=== PATIENT | male | born 1955 | race Caucasian/White ===

== ENCOUNTER 2017-11-22 09:59 | Inpatient (IN) | payer OTHER ==
[2017-11-22] MEDS ORDERED: NITROGLYCERIN-D5W PMX 50 MG in DEXTROSE/WATER 1 250ML.BAG IV ONE (10:02)
--- NOTE | 2017-11-22 10:08 | ED ---
General Adult HPI - General Stated complaint: chest pain Time Seen by Provider: 11/22/17 09:59 Source: RN notes reviewed - History of Present Illness Initial comments: This is a 62-year-old male who presents emergency Department with bypass surgery 5 stents in the past. Patient also has a history of diabetes high cholesterol high blood pressure. Patient comes in today because he started having chest pain when he was going to see his doctor today. He was going to his doctor's for a regular checkup when he started having severe chest pressure which radiated to his left shoulder he also was nauseated. Patient denies any shortness of breath or difficulty breathing. Patient states that he had 3 nitroglycerin by EMS and the third one seemed to help but he still is having chest pain currently. Patient also got 4 aspirin one which she took himself and 3 by EMS. Patient denies any lightheadedness or dizziness. Patient denies any headache patient denies numbness or weakness. Patient denies any vomiting or diarrhea. Patient denies any recent fever chills or cough. - Related Data Home Medications Medication Instructions Recorded Confirmed Aspirin EC [Ecotrin Low Dose] 81 mg PO DAILY 11/22/17 11/22/17 Butalb/Acetaminophen/Caffeine 1 cap PO Q6H PRN 11/22/17 11/22/17 [Fioricet 50-300-40 mg Capsule] Colchicine [Colcrys] 0.6 mg PO Q12H PRN 11/22/17 11/22/17 Colchicine [Colcrys] 1.2 mg PO ONCE PRN 11/22/17 11/22/17 Cyclobenzaprine [Flexeril] 10 mg PO Q6H PRN 11/22/17 11/22/17 DULoxetine HCL [Cymbalta] 30 mg PO DAILY 11/22/17 11/22/17 Dicyclomine HCl 10 mg PO TID 11/22/17 11/22/17 Esomeprazole Magnesium [NexIUM] 40 mg PO DAILY 11/22/17 11/22/17 Evolocumab [Repatha Sureclick] 140 mg SQ Q14D 11/22/17 11/22/17 Gabapentin 600 mg PO DAILY 11/22/17 11/22/17 Hydrocodone/Acetaminophen [[place] 1 tab PO Q6H PRN 09/17/18 09/17/18 10-325] Lisinopril [Zestril] 5 mg PO DAILY 11/22/17 11/22/17 Metoprolol Tartrate [Lopressor] 50 mg PO BID 11/22/17 11/22/17 Nitroglycerin Sl Tabs [Nitrostat] 0.4 mg SUBLINGUAL Q5M PRN 11/22/17 11/22/17 Pantoprazole Sodium 40 mg PO DAILY 11/22/17 11/22/17 Prasugrel [Effient] 10 mg PO DAILY 11/22/17 11/22/17 Promethazine [Phenergan] 12.5 mg PO TID PRN 11/22/17 11/22/17 Ranolazine [Ranexa] 1,000 mg PO HS 11/22/17 11/22/17 Topiramate [Topamax] 25 mg PO BID 11/22/17 11/22/17 Topiramate [Topamax] 50 mg PO BID 11/22/17 11/22/17 buPROPion HCL [Wellbutrin XL] 150 mg PO DAILY 11/22/17 11/22/17 metFORMIN HCL ER [Glucophage Xr] 500 mg PO BID 11/22/17 11/22/17 predniSONE 20 mg PO BID 11/22/17 11/22/17 traMADol HCL [Ultram] 50 mg PO Q4-6H PRN 11/22/17 11/22/17 Allergies Allergy/AdvReac Type Severity Reaction Status Date / Time glipizide Allergy Unknown Verified 11/22/17 11:19 Sulfa (Sulfonamide Allergy Unknown Verified 11/22/17 11:19 Antibiotics) Review of Systems ROS Statement: Those systems with pertinent positive or pertinent negative responses have been documented in the HPI. ROS Other: All systems not noted in ROS Statement are negative. General Exam - General Exam Comments Initial Comments: GENERAL: Patient is well-developed and well-nourished. Patient is nontoxic and well- hydrated and is in mild distress. ENT: Neck is soft and supple. No significant lymphadenopathy is noted. Oropharynx is clear. Moist mucous membranes. Neck has full range of motion without eliciting any pain. EYES: The sclera were anicteric and conjunctiva were pink and moist. Extraocular movements were intact and pupils were equal round and reactive to light. Eyelids were unremarkable. PULMONARY: Unlabored respirations. Good breath sounds bilaterally. No audible rales rhonchi or wheezing was noted. CARDIOVASCULAR: There is a regular rate and rhythm without any murmurs gallops or rubs. ABDOMEN: Soft and nontender with normal bowel sounds. No palpable organomegaly was noted. There is no palpable pulsatile mass. SKIN: Skin is clear with no lesions or rashes and otherwise unremarkable. NEUROLOGIC: Patient is alert and oriented x3. Cranial nerves II through XII are grossly intact. Motor and sensory are also intact. Normal speech, volume and content. Symmetrical smile. MUSCULOSKELETAL: Normal extremities with adequate strength and full range of motion. No lower extremity swelling or edema. No calf tenderness. LYMPHATICS: No significant lymphadenopathy is noted PSYCHIATRIC: Normal psychiatric evaluation. Course Vital Signs 11/22/17 11/22/17 11/22/17 10:09 11:35 12:05 Temperature 97.5 F L Pulse Rate 66 59 L 64 Respiratory 16 16 18 Rate Blood Pressure 115/64 103/65 110/63 O2 Sat by Pulse 96 97 95 Oximetry Medical Decision Making - Medical Decision Making EKG shows normal sinus rhythm at 66 bpm NE interval is 136 dresses 152 QT interval 4:30 QTC is 450. There is no old EKG to compare to. Chest x-ray shows no acute abnormality. Patient was placed on a nitro drip and though it helped his pain it's not take it away completely. Patient was started on heparin for unstable angina patient was admitted I wrote admitting orders I talked with Dr. Naranjo he agreed to the admission I consult to cardiology. I continue the aspirin heparin nitro drip on the floor. - Lab Data Result diagrams: 11/22/17 10:19 11/22/17 10:19 Lab Results 11/22/17 11/22/17 11/22/17 Range/Units 10:19 10:19 10:19 WBC 9.8 (3.8-10.6) k/uL RBC 5.05 (4.30-5.90) m/uL Hgb 14.4 (13.0-17.5) gm/dL Hct 44.7 (39.0-53.0) % MCV 88.6 (80.0-100.0) fL MCH 28.5 (25.0-35.0) pg MCHC 32.1 (31.0-37.0) g/dL RDW 13.1 (11.5-15.5) % Plt Count 321 (150-450) k/uL Neutrophils % 71 % Lymphocytes % 20 % Monocytes % 4 % Eosinophils % 5 % Basophils % 0 % Neutrophils # 6.9 (1.3-7.7) k/uL Lymphocytes # 1.9 (1.0-4.8) k/uL Monocytes # 0.4 (0-1.0) k/uL Eosinophils # 0.5 (0-0.7) k/uL Basophils # 0.0 (0-0.2) k/uL PT (9.0-12.0) sec INR (<1.2) APTT (22.0-30.0) sec Sodium 142 (137-145) mmol/L Potassium 4.6 (3.5-5.1) mmol/L Chloride 110 H (98-107) mmol/L Carbon Dioxide 19 L (22-30) mmol/L Anion Gap 13 mmol/L BUN 18 (9-20) mg/dL Creatinine 1.06 (0.66-1.25) mg/dL Est GFR (CKD-EPI)AfAm 88 (>60 ml/min/1.73 sqM) Est GFR (CKD-EPI)NonAf 77 (>60 ml/min/1.73 sqM) Glucose 134 H (74-99) mg/dL Calcium 8.7 (8.4-10.2) mg/dL Magnesium 2.1 (1.6-2.3) mg/dL Total Bilirubin 0.5 (0.2-1.3) mg/dL AST 79 H (17-59) U/L ALT 54 (21-72) U/L Alkaline Phosphatase 91 (38-126) U/L Total Creatine Kinase 28 L (55-170) U/L CK-MB (CK-2) 0.5 (0.0-2.4) ng/mL CK-MB (CK-2) Rel Index 1.8 Troponin I <0.012 (0.000-0.034) ng/mL Total Protein 6.2 L (6.3-8.2) g/dL Albumin 3.6 (3.5-5.0) g/dL 11/22/17 Range/Units 10:19 WBC (3.8-10.6) k/uL RBC (4.30-5.90) m/uL Hgb (13.0-17.5) gm/dL Hct (39.0-53.0) % MCV (80.0-100.0) fL MCH (25.0-35.0) pg MCHC (31.0-37.0) g/dL RDW (11.5-15.5) % Plt Count (150-450) k/uL Neutrophils % % Lymphocytes % % Monocytes % % Eosinophils % % Basophils % % Neutrophils # (1.3-7.7) k/uL Lymphocytes # (1.0-4.8) k/uL Monocytes # (0-1.0) k/uL Eosinophils # (0-0.7) k/uL Basophils # (0-0.2) k/uL PT 9.8 (9.0-12.0) sec INR 1.0 (<1.2) APTT 23.5 (22.0-30.0) sec Sodium (137-145) mmol/L Potassium (3.5-5.1) mmol/L Chloride (98-107) mmol/L Carbon Dioxide (22-30) mmol/L Anion Gap mmol/L BUN (9-20) mg/dL Creatinine (0.66-1.25) mg/dL Est GFR (CKD-EPI)AfAm (>60 ml/min/1.73 sqM) Est GFR (CKD-EPI)NonAf (>60 ml/min/1.73 sqM) Glucose (74-99) mg/dL Calcium (8.4-10.2) mg/dL Magnesium (1.6-2.3) mg/dL Total Bilirubin (0.2-1.3) mg/dL AST (17-59) U/L ALT (21-72) U/L Alkaline Phosphatase (38-126) U/L Total Creatine Kinase (55-170) U/L CK-MB (CK-2) (0.0-2.4) ng/mL CK-MB (CK-2) Rel Index Troponin I (0.000-0.034) ng/mL Total Protein (6.3-8.2) g/dL Albumin (3.5-5.0) g/dL Critical Care Time Critical Care Time: Yes Total Critical Care Time: 35 Disposition Clinical Impression: Unstable angina pectoris Disposition: ADMITTED IP TO THIS HOSP Referrals: Nicolasa Enriquez DO [Primary Care Provider] - 1-2 days Time of Disposition: 12:21
[2017-11-22] MEDS ORDERED: SODIUM CHLORIDE 0.9% 1,000 ML IV STA (10:34)
[2017-11-22 10:39] LABS: Basophils % (A) 0 %; Eosinophils # (A) 0.5 k/uL (0-0.7); Eosinophils % (A) 5 %; HCT 44.7 % (39.0-53.0); HGB 14.4 gm/dL (13.0-17.5); Lymphocytes # (A) 1.9 k/uL (1.0-4.8); Lymphocytes % (A) 20 %; MCH 28.5 pg (25.0-35.0); MCHC 32.1 g/dL (31.0-37.0); MCV 88.6 fL (80.0-100.0); Mean Platelet Volume 7.1; Monocytes # (A) 0.4 k/uL (0-1.0); Monocytes % (A) 4 %; Neutrophils # (A) 6.9 k/uL (1.3-7.7); Neutrophils % (A) 71 %; Platelet Count 321 k/uL (150-450); RBC 5.05 m/uL (4.30-5.90); RDW 13.1 % (11.5-15.5); WBC 9.8 k/uL (3.8-10.6)
[2017-11-22 10:48] LABS: Prothrombin Time 9.8 sec (9.0-12.0)
[2017-11-22 10:49] LABS: Partial Thromboplastin Time 23.5 sec (22.0-30.0)
[2017-11-22 10:53] LABS: Albumin 3.6 g/dL (3.5-5.0); Calcium 8.7 mg/dL (8.4-10.2); Magnesium 2.1 mg/dL (1.6-2.3); Potassium 4.6 mmol/L (3.5-5.1); Total Bilirubin 0.5 mg/dL (0.2-1.3); Total Protein 6.2 g/dL (6.3-8.2)
[2017-11-22 10:59] LABS: Creatine Kinase 28 U/L (55-170)
--- NOTE | 2017-11-22 11:06 | XR ---
EXAMINATION TYPE: XR chest 2V DATE OF EXAM: 11/22/2017 COMPARISON: NONE HISTORY: Shortness of breath TECHNIQUE: Frontal and lateral views of the chest are obtained. FINDINGS: Scattered senescent parenchymal changes noted. Hyperinflation compatible with COPD. No evidence for infiltrate. No evidence for atelectasis. Heart size is stable. Mediastinal structures are stable and grossly unremarkable. No evidence for hilar prominence. Degenerative changes dorsal spine. IMPRESSION: 1. No evidence for acute pulmonary disease.
[2017-11-22 11:12] LABS: Creatine Kinase MB 0.5 ng/mL (0.0-2.4); Troponin I <0.012 ng/mL (0.000-0.034)
[2017-11-22] MEDS ORDERED: HEPARIN SODIUM,PORCINE 5,000 UNIT/ML 1 ML VIAL IV ONE (12:09)
[2017-11-22] MEDS ORDERED: NITROGLYCERIN SL TABS 0.4 MG TAB SUBLINGUAL PRN (12:33)
[2017-11-22] MEDS: HEPARIN SOD,PORK IN 0.45% NACL 25,000 UNIT in 0.45% NACL 1 500ML.BAG IV SCH (12:44)
[2017-11-22] MEDS ORDERED: HYDROcodone/APAP 10-325MG 1 EACH TAB PO PRN (14:02)
[2017-11-22] MEDS ORDERED: PROMETHAZINE 25 MG TAB PO PRN (14:02)
[2017-11-22] MEDS ORDERED: CYCLOBENZAPRINE 10 MG TAB PO PRN (14:02)
[2017-11-22] MEDS ORDERED: COLCHICINE 0.6 MG EACH PO PRN (14:02)
[2017-11-22] MEDS ORDERED: traMADol 50 MG TAB PO PRN (14:02)
[2017-11-22] MEDS ORDERED: EVOLOCUMAB 140 MG SQ SCH (14:15)
--- NOTE | 2017-11-22 14:31 | P.HPIM ---
History of Present Illness 62-year-old gentleman was brought into the hospital because of chest pressure like sensation which started today when he was on his way to his regular PCPs appointment Dr. Enriquez, patient appears to have nonexertional pressure-like chest pain mild to moderate in severity radiating to the left arm similar to the chest pain when he had myocardial infarction had recent stents in month of July is on dual antiplatelet therapy and multiple stents in the past as well. Denied any associated diaphoresis complaining of some associated nausea chest pain radiates to the back and between the shoulder blades as well still has gallbladder had an appendectomy recently. His chest pain although nonexertional but the worsens with exertion mildly relieved with 3 nitro. EKG was often PCPs office which showed right bundle branch block which is old and some inferior ST depressions because of which patient was sent in to ER in ER EKG showed similar changes and showed whether the depressions are present in old EKGs no old EKG to compare with patient's previous cardiac interventions were done in [facility]. troponins are negative. Patient is willing to undergo cardiac intervention here if needed. Review of Systems REVIEW OF SYSTEMS: CONSTITUTIONAL: No fever, no malaise, no fatigue. HEENT: No recent visual problems or hearing problems. Denied any sore throat. CARDIOVASCULAR: No orthopnea, PND, no palpitations, no syncope. PULMONARY: No shortness of breath, no cough, no hemoptysis. GASTROINTESTINAL: No diarrhea, no nausea, no vomiting, no abdominal pain. Normoactive bowel sounds. NEUROLOGICAL: No headaches, no weakness, no numbness. HEMATOLOGICAL: Denies any bleeding or petechiae. GENITOURINARY: Denies any burning micturition, frequency, or urgency. MUSCULOSKELETAL/RHEUMATOLOGICAL: Denies any joint pain, swelling, or any muscle pain. ENDOCRINE: Denies any polyuria or polydipsia. The rest of the 14-point review of systems is negative. Past Medical History Past Medical History: Coronary Artery Disease (CAD), CVA/TIA, Diabetes Mellitus , Hyperlipidemia, Hypertension, Myocardial Infarction ([place]), Osteoarthritis (OA) History of Any Multi-Drug Resistant Organisms: None Reported Past Surgical History: Coronary Bypass/CABG, Heart Catheterization With Stent, Orthopedic Surgery Past Psychological History: No Psychological Hx Reported Smoking Status: Never smoker Past Alcohol Use History: None Reported Past Drug Use History: None Reported Medications and Allergies Home Medications Medication Instructions Recorded Confirmed Type Aspirin EC [Ecotrin Low Dose] 81 mg PO DAILY 11/22/17 11/22/17 History Butalb/Acetaminophen/Caffeine 1 cap PO Q6H PRN 11/22/17 11/22/17 History [Fioricet 50-300-40 mg Capsule] Colchicine [Colcrys] 0.6 mg PO Q12H PRN 11/22/17 11/22/17 History Colchicine [Colcrys] 1.2 mg PO ONCE PRN 11/22/17 11/22/17 History Cyclobenzaprine [Flexeril] 10 mg PO Q6H PRN 11/22/17 11/22/17 History DULoxetine HCL [Cymbalta] 30 mg PO DAILY 11/22/17 11/22/17 History Dicyclomine HCl 10 mg PO TID 11/22/17 11/22/17 History Esomeprazole Magnesium [NexIUM] 40 mg PO DAILY 11/22/17 11/22/17 History Evolocumab [Repatha Sureclick] 140 mg SQ Q14D 11/22/17 11/22/17 History Gabapentin 600 mg PO DAILY 11/22/17 11/22/17 History Hydrocodone/Acetaminophen [[place] 1 tab PO Q6H PRN 11/22/17 11/22/17 History 10-325] Lisinopril [Zestril] 5 mg PO DAILY 11/22/17 11/22/17 History Metoprolol Tartrate [Lopressor] 50 mg PO BID 11/22/17 11/22/17 History Nitroglycerin Sl Tabs [Nitrostat] 0.4 mg SUBLINGUAL Q5M PRN 11/22/17 11/22/17 History Pantoprazole Sodium 40 mg PO DAILY 11/22/17 11/22/17 History Prasugrel [Effient] 10 mg PO DAILY 11/22/17 11/22/17 History Promethazine [Phenergan] 12.5 mg PO TID PRN 11/22/17 11/22/17 History Ranolazine [Ranexa] 1,000 mg PO HS 11/22/17 11/22/17 History Topiramate [Topamax] 25 mg PO BID 11/22/17 11/22/17 History Topiramate [Topamax] 50 mg PO BID 11/22/17 11/22/17 History buPROPion HCL [Wellbutrin XL] 150 mg PO DAILY 11/22/17 11/22/17 History metFORMIN HCL ER [Glucophage Xr] 500 mg PO BID 11/22/17 11/22/17 History predniSONE 20 mg PO BID 11/22/17 11/22/17 History traMADol HCL [Ultram] 50 mg PO Q4-6H PRN 11/22/17 11/22/17 History Allergies Allergy/AdvReac Type Severity Reaction Status Date / Time glipizide Allergy Unknown Verified 11/22/17 11:19 Sulfa (Sulfonamide Allergy Unknown Verified 11/22/17 11:19 Antibiotics) Physical Exam Vitals: Vital Signs Temp Pulse Resp BP Pulse Ox 11/22/17 13:53 97.8 F 11/22/17 13:50 62 16 118/61 96 11/22/17 13:04 61 16 116/66 96 11/22/17 12:05 64 18 110/63 95 11/22/17 11:35 59 L 16 103/65 97 11/22/17 10:09 97.5 F L 66 16 115/64 96 Intake and Output 11/21/17 11/22/17 11/22/17 22:59 06:59 14:59 Intake Total 4.65 Balance 4.65 Intake: Intake, IV Titration 4.65 Amount Nitroglycerin-D5w Pmx 50 4.65 mg In Dextrose/Water 1 250ml.bag @ 10 MCG/MIN 3 mls/hr IV .Q24H ONE Rx#: [id number] Other: Weight 104.326 kg PHYSICAL EXAMINATION: GENERAL: The patient is alert and oriented x3, not in any acute distress. Well developed, well nourished. HEENT: Pupils are round and equally reacting to light. EOMI. No scleral icterus. No conjunctival pallor. Normocephalic, atraumatic. No pharyngeal erythema. No thyromegaly. CARDIOVASCULAR: S1 and S2 present. No murmurs, rubs, or gallops. PULMONARY: Chest is clear to auscultation, no wheezing or crackles. ABDOMEN: Soft, nontender, nondistended, normoactive bowel sounds. No palpable organomegaly. MUSCULOSKELETAL: No joint swelling or deformity. EXTREMITIES: No cyanosis, clubbing, or pedal edema. NEUROLOGICAL: Gross neurological examination did not reveal any focal deficits. SKIN: No rashes. Results CBC & Chem 7: 11/22/17 10:19 11/22/17 10:19 Labs: Abnormal Lab Results - Last 24 Hours (Table) 11/22/17 11/22/17 Range/Units 10:19 10:19 Chloride 110 H (98-107) mmol/L Carbon Dioxide 19 L (22-30) mmol/L Glucose 134 H (74-99) mg/dL AST 79 H (17-59) U/L Total Creatine Kinase 28 L (55-170) U/L Total Protein 6.2 L (6.3-8.2) g/dL Assessment and Plan Plan: -Chest pain, patient does have some typical features. Patient will be evaluated by cardiology patient is a nitro drip and the heparin drip. Which will be continued -We will rule out cholelithiasis with ultrasound of the gallbladder -Recent gout for which patient is on colchicine done with prednisone prednisone will be discontinued -Hyperlipidemia for which patient is on CPAP which will be continued -Coronary artery disease with recent stents for which patient is on beta bentley and dual antiplatelet therapy along with lisinopril which will be continued along with Ranolazine -Type 2 diabetes mellitus: Metformin will be held and patient will be on sliding scale insulin -Hypertension
[2017-11-22 16:44] LABS: Glucose,Whole Blood 87 mg/dL (75-99)
[2017-11-22 16:59] LABS: Creatine Kinase 27 U/L (55-170)
[2017-11-22 17:12] LABS: Creatine Kinase MB 0.6 ng/mL (0.0-2.4); Troponin I <0.012 ng/mL (0.000-0.034)
[2017-11-22] MEDS: INSULIN ASPART 100 UNIT/ML 1 ML 10 ML VIAL SQ SCH ×2 (19:35→21:06)
[2017-11-22] MEDS: DICYCLOMINE 10 MG CAP PO SCH ×2 (19:35→21:07)
[2017-11-22] MEDS ORDERED: RANOLAZINE 500 MG TAB.ER.12H PO SCH (21:00)
[2017-11-22] MEDS ORDERED: TOPIRAMATE 50 MG PO SCH (21:00)
[2017-11-22] MEDS ORDERED: TOPIRAMATE 25 MG TAB PO SCH (21:00)
[2017-11-22] MEDS ORDERED: predniSONE 20 MG TAB PO SCH (21:00)
[2017-11-22] MEDS: TOPIRAMATE 25 MG TAB PO SCH (21:06)
[2017-11-22] MEDS: METOPROLOL TARTRATE 50 MG TAB PO SCH (21:06)
[2017-11-22 21:36] LABS: Glucose,Whole Blood 127 mg/dL (75-99)
[2017-11-22] MEDS: BUTALB/APAP/CAFF 50-325-40MG TAB PO PRN (22:10)
[2017-11-22 23:16] LABS: Creatine Kinase 26 U/L (55-170)
[2017-11-22 23:28] LABS: Creatine Kinase MB 0.4 ng/mL (0.0-2.4); Troponin I <0.012 ng/mL (0.000-0.034)
[2017-11-23] MEDS ORDERED: TEMAZEPAM 15 MG CAP PO PRN (00:12)
[2017-11-23 02:16] LABS: HCT 40.6 % (39.0-53.0); HGB 13.4 gm/dL (13.0-17.5); MCH 29.3 pg (25.0-35.0); MCV 88.9 fL (80.0-100.0); Mean Platelet Volume 7.4; Platelet Count 263 k/uL (150-450); RBC 4.56 m/uL (4.30-5.90); RDW 13.3 % (11.5-15.5); WBC 11.7 k/uL (3.8-10.6)
[2017-11-23 02:25] LABS: Calcium 8.4 mg/dL (8.4-10.2); Potassium 4.1 mmol/L (3.5-5.1)
[2017-11-23] MEDS: BUTALB/APAP/CAFF 50-325-40MG TAB PO PRN (03:58)
[2017-11-23] MEDS: PANTOPRAZOLE 40 MG TABLET PO SCH (05:52)
[2017-11-23 06:07] LABS: Glucose,Whole Blood 109 mg/dL (75-99)
[2017-11-23] MEDS: INSULIN ASPART 100 UNIT/ML 1 ML 10 ML VIAL SQ SCH ×4 (06:08→20:35)
[2017-11-23] MEDS: NITROGLYCERIN SL TABS 0.4 MG TAB SUBLINGUAL PRN ×3 (08:57→09:07)
[2017-11-23] MEDS: HEPARIN SOD,PORK IN 0.45% NACL 25,000 UNIT in 0.45% NACL 1 500ML.BAG IV SCH (08:57)
[2017-11-23] MEDS: METOPROLOL TARTRATE 50 MG TAB PO SCH ×2 (08:58→21:22)
[2017-11-23] MEDS: DULoxetine HCL 30 MG CAPSULE.DR PO SCH (08:58)
[2017-11-23] MEDS: TOPIRAMATE 25 MG TAB PO SCH ×2 (08:58→21:22)
[2017-11-23] MEDS: LISINOPRIL 5 MG TAB PO SCH (08:58)
[2017-11-23] MEDS: buPROPion XL 150 MG TAB.ER.24H PO SCH (08:58)
[2017-11-23] MEDS: GABAPENTIN 300 MG CAP PO SCH (08:58)
[2017-11-23] MEDS: DICYCLOMINE 10 MG CAP PO SCH ×3 (08:58→21:22)
[2017-11-23] MEDS ORDERED: PANTOPRAZOLE 40 MG TABLET PO SCH (09:00)
[2017-11-23] MEDS ORDERED: ASPIRIN 325 MG TAB PO SCH (09:00)
[2017-11-23] MEDS ORDERED: PRASUGREL 10 MG TAB PO SCH (09:00)
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
[2017-11-23] MEDS ORDERED: NITROGLYCERIN SL TABS 0.4 MG TAB SUBLINGUAL PRN ×2 (10:00→13:08)
[2017-11-23] MEDS ORDERED: ALPRAZolam 0.5 MG TAB PO PRN (10:00)
[2017-11-23] MEDS ORDERED: SODIUM CHLORIDE 0.9% 1,000 ML in EMPTY BAG 1 BAG IV ONE (10:00)
[2017-11-23] MEDS ORDERED: ATORVASTATIN 80 MG TAB PO STA (10:00)
[2017-11-23] MEDS ORDERED: ALPRAZolam 0.25 MG TAB PO PRN (10:00)
[2017-11-23] MEDS ORDERED: ASPIRIN 325 MG TAB PO STA (10:00)
--- NOTE | 2017-11-23 10:13 | ECHOF ---
Referral Reason:chest pain MEASUREMENTS -------- HEIGHT: 182.9 cm WEIGHT: 105.2 kg BP: 117/65 RVIDd: 3.4 cm (< 3.3) IVSd: 1.2 cm (0.6 - 1.1) LVIDd: 4.1 cm (3.9 - 5.3) LVPWd: 1.3 cm (0.6 - 1.1) IVSs: 1.8 cm LVIDs: 2.7 cm LVPWs: 1.7 cm LA Diam: 3.9 cm (2.7 - 3.8) LAESV Index (A-L): 14.71 ml/m Ao Diam: 3.3 cm (2.0 - 3.7) AV Cusp: 2.4 cm (1.5 - 2.6) MV EXCURSION: 21.518 mm (> 18.000) MV EF SLOPE: 84 mm/s (70 - 150) EPSS: 0.4 cm MV E Michael: 0.91 m/s MV DecT: 193 ms MV A Michael: 0.83 m/s MV E/A Ratio: 1.09 RAP: 5.00 mmHg RVSP: 33.58 mmHg FINDINGS -------- Sinus rhythm. This was a technically adequate study. The left ventricular size is normal. There is mild concentric left ventricular hypertrophy. Overa ll left ventricular systolic function is normal with, an EF between 60 - 65 %. The right ventricle is mildly enlarged. Normal LA size by volume 22+/-6 ml/m2. The right atrium is normal in size. The aortic valve is trileaflet and appears structurally normal. Mild mitral annular calcification present. Mild tricuspid regurgitation present. There is borderline pulmonary hypertension. The right ventr icular systolic pressure, as measured by Doppler, is 33.58mmHg. Trace/mild (physiologic) pulmonic regurgitation. The aortic root size is normal. Normal inferior vena cava with normal inspiratory collapse consistent with estimated right atrial pre ssure of 5 mmHg. There is no pericardial effusion. CONCLUSIONS -------- 1. Sinus rhythm. 2. This was a technically adequate study. 3. The left ventricular size is normal. 4. There is mild concentric left ventricular hypertrophy. 5. Overall left ventricular systolic function is normal with, an EF between 60 - 65 %. 6. The right ventricle is mildly enlarged. 7. Normal LA size by volume 22+/-6 ml/m2. 8. The right atrium is normal in size. 9. The aortic valve is trileaflet and appears structurally normal. 10. Mild mitral annular calcification present. 11. Mild tricuspid regurgitation present. 12. There is borderline pulmonary hypertension. 13. The right ventricular systolic pressure, as measured by Doppler, is 33.58mmHg. 14. Trace/mild (physiologic) pulmonic regurgitation. 15. The aortic root size is normal. 16. Normal inferior vena cava with normal inspiratory collapse consistent with estimated right atrial pressure of 5 mmHg. 17. There is no pericardial effusion. TIME CLOCK INSPECTOR: Ana Hdz RDCS
--- NOTE | 2017-11-23 10:35 | US ---
EXAMINATION TYPE: US gallbladder DATE OF EXAM: 11/23/2017 COMPARISON: CLINICAL HISTORY: elevated liver enzymes. Pain, NPO EXAM MEASUREMENTS: Liver Length: 17.4 cm Gallbladder Wall: 0.2 cm CBD: 0.8 cm CHD: 0.7 cm Right Kidney: 11.1 x 4.6 x 5.1 cm Pancreas: Echogenic. Tail obscured by overlying bowel gas Liver: echogenic and course. Upper limits of normal in size Gallbladder: Mobile echogenic foci with shadow Evidence for sonographic Blunt's sign: neg CBD: Dilated CHD: Dilated Right Kidney: wnl IMPRESSION: 1. Liver is heterogeneous. Differential diagnosis would include fatty infiltration, hepatitis or diff use hepatocellular disease. 2. Cholelithiasis with no gallbladder wall thickening. The common bile duct measures 8 mm no evidence dilated. Distal CBD stone in the differential diagnosis.
[2017-11-23] MEDS: PRASUGREL 10 MG TAB PO SCH (10:43)
--- NOTE | 2017-11-23 10:59 | P.PN ---
Subjective 62-year-old gentleman admitted with the chest pain with some typical features cardiology evaluated the patient and that the recommending cardiac catheterization patient will continued on IV heparin. Patient had a gallbladder ultrasound which did show cholelithiasis. No cholecystitis at this time. Patient is still having on and off chest pain. Constitutional: Denied any fatigue denied any fever. Cardio vascular: denied any palpitations Gastrointestinal denied any nausea vomiting Pulmonary: Denied any shortness of breath cough Neurologic denied any new focal deficits Objective - Vital Signs Vital signs: Vital Signs Temp 97.8 F 11/23/17 08:00 Pulse 74 11/23/17 08:00 Resp 16 11/23/17 08:00 BP 117/65 11/23/17 08:00 Pulse Ox 95 11/23/17 08:00 Intake & Output 11/22/17 11/23/17 11/23/17 18:59 06:59 18:59 Intake Total 1044.65 999.921 145.08 Output Total 800 500 Balance 244.65 499.921 145.08 Weight 104.326 kg 105.6 kg Intake: IV 688 Heparin Sod,Pork in 0.45% 320 NaCl 25,000 unit In 0.45 % NaCl 1 500ml.bag @ 9.59 UNITS/KG/HR 20 mls/hr IV .Q24H COTY Rx#:[id number] Nitroglycerin-D5w Pmx 50 48 mg In Dextrose/Water 1 250ml.bag @ 10 MCG/MIN 3 mls/hr IV .Q24H ONE Rx#: [id number] Sodium Chloride 0.9% 1, 320 000 ml @ 20 mls/hr IV . Q24H STA Rx#:[id number] Intake, IV Titration 122.65 311.921 145.08 Amount Heparin Sod,Pork in 0.45% 100 311.921 145.08 NaCl 25,000 unit In 0.45 % NaCl 1 500ml.bag @ 9.59 UNITS/KG/HR 20 mls/hr IV .Q24H COTY Rx#:[id number] Nitroglycerin-D5w Pmx 50 4.65 mg In Dextrose/Water 1 250ml.bag @ 10 MCG/MIN 3 mls/hr IV .Q24H ONE Rx#: [id number] Sodium Chloride 0.9% 1, 18 000 ml @ 20 mls/hr IV . Q24H STA Rx#:[id number] Oral 922 Output: Urine 800 500 Other: Voiding Method Urinal - Exam PHYSICAL EXAMINATION: GENERAL: The patient is alert and oriented x3, not in any acute distress. Well developed, well nourished. HEENT: Pupils are round and equally reacting to light. EOMI. No scleral icterus. No conjunctival pallor. Normocephalic, atraumatic. No pharyngeal erythema. No thyromegaly. CARDIOVASCULAR: S1 and S2 present. No murmurs, rubs, or gallops. PULMONARY: Chest is clear to auscultation, no wheezing or crackles. ABDOMEN: Soft, nontender, nondistended, normoactive bowel sounds. No palpable organomegaly. MUSCULOSKELETAL: No joint swelling or deformity. EXTREMITIES: No cyanosis, clubbing, or pedal edema. NEUROLOGICAL: Gross neurological examination did not reveal any focal deficits. SKIN: No rashes. - Labs CBC & Chem 7: 11/23/17 02:05 11/23/17 02:05 Labs: Abnormal Lab Results - Last 24 Hours (Table) 11/22/17 11/22/17 11/22/17 Range/Units 10:19 16:20 19:48 WBC (3.8-10.6) k/uL APTT 45.1 H (22.0-30.0) sec Chloride (98-107) mmol/L Glucose (74-99) mg/dL POC Glucose (mg/dL) (75-99) mg/dL Total Creatine Kinase 28 L 27 L (55-170) U/L Triglycerides (<150) mg/dL HDL Cholesterol (40-60) mg/dL 11/22/17 11/22/17 11/23/17 Range/Units 21:35 22:38 02:05 WBC (3.8-10.6) k/uL APTT (22.0-30.0) sec Chloride 111 H (98-107) mmol/L Glucose 114 H (74-99) mg/dL POC Glucose (mg/dL) 127 H (75-99) mg/dL Total Creatine Kinase 26 L (55-170) U/L Triglycerides 545 H (<150) mg/dL HDL Cholesterol 32 L (40-60) mg/dL 09/18/18 09/18/18 09/18/18 Range/Units 02:05 02:05 06:06 WBC 11.7 H (3.8-10.6) k/uL APTT 57.7 H (22.0-30.0) sec Chloride (98-107) mmol/L Glucose (74-99) mg/dL POC Glucose (mg/dL) 109 H (75-99) mg/dL Total Creatine Kinase (55-170) U/L Triglycerides (<150) mg/dL HDL Cholesterol (40-60) mg/dL Assessment and Plan Plan: -Chest pain, patient does have some typical features. Patient was evaluated by cardiology patient is a nitro drip and the heparin drip. Which will be continued. Patient will undergo chronic catheterization tomorrow -Cholelithiasis -Recent gout for which patient is on colchicine -Hyperlipidemia for which patient is on CPAP which will be continued -Coronary artery disease with recent stents for which patient is on beta bentley and dual antiplatelet therapy along with lisinopril which will be continued along with Ranolazine -Type 2 diabetes mellitus: Metformin will be held and patient will be on sliding scale insulin -Hypertension
[2017-11-23] MEDS ORDERED: IV FLUID CONTINUATION 1,000 ML IV ONE (11:21)
[2017-11-23 11:26] LABS: Glucose,Whole Blood 110 mg/dL (75-99)
[2017-11-23] MEDS ORDERED: fentaNYL (PF) 50 MCG/ML 2 ML AMP IV ONE (11:30)
[2017-11-23] MEDS ORDERED: LIDOCAINE 1% INJ 10MG/ML (20 ML MDV) SQ ONE (11:35)
[2017-11-23] MEDS ORDERED: IOPAMIDOL-370 125ML BTL INJ ONE (11:52)
[2017-11-23] MEDS ORDERED: BIVALIRUDIN BOLUS 250 MG/50 ML IV ONE (12:09)
[2017-11-23] MEDS ORDERED: BIVALIRUDIN 250 MG in SODIUM CHLORIDE 0.9% 40 ML IV ONE (12:10)
[2017-11-23] MEDS ORDERED: MIDAZOLAM 2 MG/2 ML VIAL IV ONE (12:10)
[2017-11-23] MEDS ORDERED: IOPAMIDOL-370 100ML BTL INJ ONE (12:46)
[2017-11-23] MEDS ORDERED: ZOLPIDEM 5 MG TAB PO PRN (13:08)
[2017-11-23] MEDS ORDERED: MAG HYDROX/AL HYDROX/SIMETH 30 ML CUP PO PRN (13:08)
[2017-11-23] MEDS ORDERED: ATROPINE SULFATE 0.1 MG/ML 10ML SYRINGE IV PRN (13:08)
[2017-11-23] MEDS ORDERED: RX INFO: IV CONTRAST WAS GIVEN 1 EACH MISC MISCELLANE PRN (13:08)
[2017-11-23] MEDS ORDERED: SODIUM CHLORIDE 0.9% 1,000 ML IV SCH (13:15)
--- NOTE | 2017-11-23 13:58 | CC ---
CARDIAC CATHETERIZATION REPORT Mr. Silva is a 62-year-old male with known history of coronary disease, status post coronary artery bypass grafting, percutaneous revascularization most recently performed in July of this year in the setting of myocardial infarction at the left circumflex. He presented with symptoms of chest discomfort, but no evidence of enzymatic changes. In view of that, recommendation made regarding cardiac catheterization. The procedures, risks and complication were discussed with the patient who is in full understanding and agreement. PROCEDURE: Patient was brought to laboratory animal facility supervisor in a fasting semi-sedated state after receiving fentanyl and Benadryl and achieving moderate conscious sedated state. Using Xylocaine anesthesia in the Seldinger technique, a 6-American sheath was introduced in the right femoral artery. Selective right and left angiography performed 6-American 4 bend right and left Kuldeep catheter. Multiple views of the coronary artery including hemiaxial views were obtained. Following that the 6-American right Kuldeep catheter was used to cannulate the ALBARRAN to LAD. Images of the grafts were obtained. Following that, a 6- American left coronary bypass catheter was used to cannulate the saphenous vein graft to the obtuse marginal branch and images were obtained. Following that, a 6-American tight pigtail catheter in his left ventricle and pressures were calculated. Following the catheter were removed, images were reviewed. LEFT MAIN: This is a large-sized vessel trifurcating into the left circumflex, left anterior descending artery. Left main coronary artery has no evidence of high-grade stenosis. LEFT ANTERIOR DESCENDING ARTERY: This vessel is stented proximally. The stent is patent, has intimal restenosis of 30% to 40% There was competitive flow into the mid and distal LAD. LEFT CIRCUMFLEX: This is a large dominant vessel bifurcating into PDA and posterolateral branches. The stented segment in the proximal left circumflex is patent. There is competitive flow into the second obtuse marginal branch distally bifurcating into the PDA and PLV. There is intimal disease into the PDA, but it is small in caliber. RAMUS INTERMEDIUS: This is a moderately-sized vessel reaching to the apical lateral wall. The ramus intermedius proximally has a 80% stenosis. The origin of the ramus intermedius is covered by the stented segment of the left circumflex. RIGHT CORONARY ARTERY: This is a small nondominant vessel diffusely diseased. ALBARRAN TO LAD: The distal anastomotic site is patent. The flow into the LAD is brisk. There is no evidence of high-grade stenosis. SAPHENOUS VEIN GRAFT TO THE OBTUSE MARGINAL BRANCH: The proximal distal anastomotic site is patent. There is mild intimal disease in the proximal segment of the graft. The flow into the obtuse marginal branch is brisk and retrograde flow into the circumflex and ramus intermedius. Second saphenous vein graft appears to be occluded. The second obtuse marginal branch the distal anastomotic site is unclear. LEFT VENTRICULOGRAM: Left Ventriculogram is not performed. HEMODYNAMICS: There was no gradient across the aortic valve. The left ventricle end- diastolic pressure was 10-12 mmHg. CONCLUSION: 1. Subtotally occluded mid LAD with competitive flow from the ALBARRAN. 2. Patent stented segment in the circumflex. 3. Significant disease in the proximal segment of the ramus intermedius. 4. Patent saphenous vein graft to the obtuse marginal branch. RECOMMENDATION: In view of finding anatomy I recommend proceeding with angioplasty and stenting of the ramus intermedius. The procedures, risks and complication were discussed with the patient who is in full understanding and agreement. MMODL / IJN: [id number] /
--- NOTE | 2017-11-23 14:03 | PTCA ---
PERCUTANEOUSTRANS CORORONARY ANGIOGRAPHY Mr. Silva 62-year-old male who presented with symptoms of unstable angina, underwent cardiac catheterization, was found to have significant stenosis in the ramus intermedius that is originating from the stented segment of the proximal left circumflex. In view of that, recommendation was made regarding angioplasty and stenting. The procedures, risks and complication were discussed with the patient who is in full understanding and agreement. PROCEDURE: A 6-Swedish FR4 guiding catheter introduced into the system. After cannulating the left main a 0.014 balanced medium weight J-wire was advanced across the lesion, positioned distally. Attempts to advance a 2.5 x 12 mm Trek balloon were unsuccessful. That balloon was removed and a whisper J-wire was advanced next to the first one in a alexa fashion positioned distally. Then balloon was advanced and inflation at 8 atmospheres was done. Following that the balloon was removed and attempts to advance a 2.5 x 12 mm Xience Alpine stent were unsuccessful as in exiting the stented segment of the left circumflex. That stent was removed and attempt to advance a 2.0 x 8 mm Kodi Integrity stent were unsuccessful as well. The stent was removed and the BMWJ wire was removed and a GuideLiner was advanced and in spite of using the GuideLiner there was inability to advance the Brownell stent. At that point the stent was removed and another inflation with a 2.5 x 12 mm Trek balloon was done at maximum of 8 atmospheres. After the last inflation, after appropriate wait the balloon and the guidewire were withdrawn back into the guiding catheter. Images were obtained repeated. Those images revealed stable successful stenting. At that point, the guiding catheter, the balloon and the guidewire were removed. The sheath was removed. Hemostasis was obtained with deployment of an Angio-Seal. There was no complication. Patient is returned to his room in stable condition. Of note, the patient received Angiomax per protocol. He had no chest pain or EKG changes with the inflations. RESULTS: Successful angioplasty of the ramus intermedius with reduction of stenosis from 80% to less than 30%. RECOMMENDATION: Patient will be continued on aspirin, Effient, beta bentley, and statin. The importance of dual antiplatelet treatment were discussed with the patient and his family who are in full understanding and agreement. DURATION PROCEDURE: 78 minutes. MMODL / IJN: [id number] / [facility]
[2017-11-23] MEDS: ISOSORBIDE MONONITRATE ER 30 MG TAB.ER.24H PO SCH (14:15)
[2017-11-23 15:28] VITALS: BMI 31.6
[2017-11-23 16:59] LABS: Glucose,Whole Blood 111 mg/dL (75-99)
[2017-11-23 20:31] LABS: Glucose,Whole Blood 125 mg/dL (75-99)
[2017-11-23] MEDS: RANOLAZINE 500 MG TAB.ER.12H PO SCH (21:21)
[2017-11-24 05:55] LABS: Glucose,Whole Blood 121 mg/dL (75-99)
[2017-11-24] MEDS: INSULIN ASPART 100 UNIT/ML 1 ML 10 ML VIAL SQ SCH ×2 (05:59→12:40)
[2017-11-24] MEDS: PANTOPRAZOLE 40 MG TABLET PO SCH (06:25)
[2017-11-24] MEDS: METOPROLOL TARTRATE 50 MG TAB PO SCH (08:03)
[2017-11-24] MEDS: buPROPion XL 150 MG TAB.ER.24H PO SCH (08:03)
[2017-11-24] MEDS: GABAPENTIN 300 MG CAP PO SCH (08:04)
[2017-11-24] MEDS: PRASUGREL 10 MG TAB PO SCH (08:04)
[2017-11-24] MEDS: ISOSORBIDE MONONITRATE ER 30 MG TAB.ER.24H PO SCH (08:04)
[2017-11-24] MEDS: LISINOPRIL 5 MG TAB PO SCH (08:04)
[2017-11-24] MEDS: DICYCLOMINE 10 MG CAP PO SCH (08:04)
[2017-11-24] MEDS: DULoxetine HCL 30 MG CAPSULE.DR PO SCH (08:04)
[2017-11-24] MEDS: TOPIRAMATE 25 MG TAB PO SCH (08:05)
[2017-11-24 08:06] VITALS: RESP 16
[2017-11-24 08:06] LABS: HGB 13.4 gm/dL (13.0-17.5); MCH 28.3 pg (25.0-35.0); MCV 88.4 fL (80.0-100.0); Mean Platelet Volume 7.3; Platelet Count 243 k/uL (150-450); RBC 4.74 m/uL (4.30-5.90); RDW 13.3 % (11.5-15.5)
[2017-11-24 08:18] LABS: Calcium 8.7 mg/dL (8.4-10.2); Potassium 4.4 mmol/L (3.5-5.1)
[2017-11-24] MEDS ORDERED: ASPIRIN 81 MG PO SCH (09:00)
[2017-11-24] MEDS: RANOLAZINE 500 MG TAB.ER.12H PO SCH (09:26)
[2017-11-24 11:46] LABS: Glucose,Whole Blood 157 mg/dL (75-99)
--- NOTE | 2017-11-24 11:57 | P.DS ---
Providers Date of admission: 11/23/17 14:21 Attending physician: Chiquis Naranjo Consults: 11/22/17 12:33 Consult Physician Urgent Consulting Provider: Diogenes Arrieta Consult Reason/Comments: Unstable angina Do you want consulting provider notified?: Yes 11/23/17 13:08 Consult Physician Routine Consulting Provider: Diogenes Arrieta Consult Reason/Comments: Post Interventional patient Do you want consulting provider notified?: Already Contacted Primary care physician: [facility] Course: 62-year-old gentleman admitted with the chest pain with some typical features cardiology evaluated the patient and that the recommending cardiac catheterization patient will continued on IV heparin. Patient had a gallbladder ultrasound which did show cholelithiasis. No cholecystitis at this time. Patient is still having on and off chest pain. 11/24/2017 Patient underwent cardiac catheterization and stenting of Ramus intermedius branch that is subtotally occluded mid LAD and significant disease in grandma's intermedius. Patient will be discharged today. Discharge cardiac medication reconciliation by cardiology maximize medical therapy PHYSICAL EXAMINATION: GENERAL: The patient is alert and oriented x3, not in any acute distress. Well developed, well nourished. HEENT: Pupils are round and equally reacting to light. EOMI. No scleral icterus. No conjunctival pallor. Normocephalic, atraumatic. No pharyngeal erythema. No thyromegaly. CARDIOVASCULAR: S1 and S2 present. No murmurs, rubs, or gallops. PULMONARY: Chest is clear to auscultation, no wheezing or crackles. ABDOMEN: Soft, nontender, nondistended, normoactive bowel sounds. No palpable organomegaly. MUSCULOSKELETAL: No joint swelling or deformity. EXTREMITIES: No cyanosis, clubbing, or pedal edema. NEUROLOGICAL: Gross neurological examination did not reveal any focal deficits. SKIN: No rashes. -Chest pain, unstable angina -Cholelithiasis follow up with surgery as an outpatient -Recent gout for which patient is on colchicine -Hyperlipidemia for which patient is on CPAP which will be continued -Coronary artery disease with recent stents for which patient is on beta bentley and dual antiplatelet therapy along with lisinopril which will be continued along with Ranolazine -Type 2 diabetes mellitus: -Hypertension Patient Condition at Discharge: Serious Plan - Discharge Summary Discharge Rx Participant: Yes New Discharge Prescriptions: No Action Ranolazine [Ranexa] 1,000 mg PO HS Promethazine [Phenergan] 12.5 mg PO TID PRN PRN Reason: Nausea And Vomiting Hydrocodone/Acetaminophen [[place] 10-325] 1 tab PO Q6H PRN PRN Reason: Pain Cyclobenzaprine [Flexeril] 10 mg PO Q6H PRN PRN Reason: Muscle Spasm Nitroglycerin Sl Tabs [Nitrostat] 0.4 mg SUBLINGUAL Q5M PRN PRN Reason: Chest Pain Gabapentin 600 mg PO DAILY DULoxetine HCL [Cymbalta] 30 mg PO DAILY Aspirin EC [Ecotrin Low Dose] 81 mg PO DAILY predniSONE 20 mg PO BID Evolocumab [Repatha Sureclick] 140 mg SQ Q14D Esomeprazole Magnesium [NexIUM] 40 mg PO DAILY Prasugrel [Effient] 10 mg PO DAILY Lisinopril [Zestril] 5 mg PO DAILY Pantoprazole Sodium 40 mg PO DAILY Colchicine [Colcrys] 1.2 mg PO ONCE PRN PRN Reason: GOUT Colchicine [Colcrys] 0.6 mg PO Q12H PRN PRN Reason: GOUT Topiramate [Topamax] 50 mg PO BID Topiramate [Topamax] 25 mg PO BID Metoprolol Tartrate [Lopressor] 50 mg PO BID traMADol HCL [Ultram] 50 mg PO Q4-6H PRN PRN Reason: Pain metFORMIN HCL ER [Glucophage Xr] 500 mg PO BID buPROPion HCL [Wellbutrin XL] 150 mg PO DAILY Dicyclomine HCl 10 mg PO TID Butalb/Acetaminophen/Caffeine [Fioricet 50-300-40 mg Capsule] 1 cap PO Q6H PRN PRN Reason: Headache Discharge Medication List Aspirin EC [Ecotrin Low Dose] 81 mg PO DAILY 11/22/17 [History] Butalb/Acetaminophen/Caffeine [Fioricet 50-300-40 mg Capsule] 1 cap PO Q6H PRN 11/22/17 [History] Colchicine [Colcrys] 0.6 mg PO Q12H PRN 11/22/17 [History] Colchicine [Colcrys] 1.2 mg PO ONCE PRN 11/22/17 [History] Cyclobenzaprine [Flexeril] 10 mg PO Q6H PRN 11/22/17 [History] DULoxetine HCL [Cymbalta] 30 mg PO DAILY 11/22/17 [History] Dicyclomine HCl 10 mg PO TID 11/22/17 [History] Esomeprazole Magnesium [NexIUM] 40 mg PO DAILY 11/22/17 [History] Evolocumab [Repatha Sureclick] 140 mg SQ Q14D 11/22/17 [History] Gabapentin 600 mg PO DAILY 11/22/17 [History] Hydrocodone/Acetaminophen [[place] 10-325] 1 tab PO Q6H PRN 11/22/17 [History] Lisinopril [Zestril] 5 mg PO DAILY 11/22/17 [History] Metoprolol Tartrate [Lopressor] 50 mg PO BID 11/22/17 [History] Nitroglycerin Sl Tabs [Nitrostat] 0.4 mg SUBLINGUAL Q5M PRN 11/22/17 [History] Pantoprazole Sodium 40 mg PO DAILY 11/22/17 [History] Prasugrel [Effient] 10 mg PO DAILY 11/22/17 [History] Promethazine [Phenergan] 12.5 mg PO TID PRN 11/22/17 [History] Ranolazine [Ranexa] 1,000 mg PO HS 11/22/17 [History] Topiramate [Topamax] 25 mg PO BID 11/22/17 [History] Topiramate [Topamax] 50 mg PO BID 11/22/17 [History] buPROPion HCL [Wellbutrin XL] 150 mg PO DAILY 11/22/17 [History] metFORMIN HCL ER [Glucophage Xr] 500 mg PO BID 11/22/17 [History] predniSONE 20 mg PO BID 11/22/17 [History] traMADol HCL [Ultram] 50 mg PO Q4-6H PRN 11/22/17 [History] Follow up Appointment(s)/Referral(s): Grant Kincaid MD [STAFF PHYSICIAN] - 12/01/17 2:30 pm Nicolasa Enriquez DO [Primary Care Provider] - 3 Days Patient Instructions/Handouts: *Surgery [facility] - After Heart Catheterization - [employer] Sales Consultant Instructions, Heart Healthy Diet (DC) Discharge Disposition: HOME SELF-CARE
--- NOTE | 2017-11-24 12:01 | P.PN ---
Subjective Progress Note Date: 11/24/17 This is a pleasant 62-year-old gentleman with extensive past medical cardiac history, 2016 he states that he had a stent placement and shortly thereafter underwent coronary artery bypass grafting surgery, subsequent to that patient again underwent stent placement. On Memorial Day of this year, patient again was having symptoms, he was actually at a [place] [place] [employer] game, he was taken to [facility] where he underwent stent placement again. Yesterday patient states he was driving to his doctor's office, started developing a pressure in the center of his chest which radiated up into his left jaw, he became diaphoretic, mild nausea, states that the symptoms reminded him of what he had with his prior stent placements. He was given 3 sublingual nitroglycerin in the EMS, the third one seemed to help somewhat. This morning, just prior to my examination patient again started to develop chest discomfort and EKG is currently being performed, he is on IV nitroglycerin drip. He does have history of hypertension, prior CVA ,hyperlipidemia states that he was intolerant to statins and one year ago was initiated on Repatha. 3 weeks ago the patient states he also had acute appendicitis for which he had his appendix removed, and is just recovering also from a recent gout episode. Chest x-ray on admission here did not reveal evidence for acute pulmonary disease. EKG shows normal sinus rhythm with a right bundle branch block pattern and nonspecific ST-T wave changes. Blood pressure 117/60 heart rate in the 70s, 95 % on room air, temperature 97.8. White blood cell count 11.7, hemoglobin 13.4, platelet count 263. Sodium 142, potassium 4.1, chloride 111, CO2 24, BUN 18, creatinine 1.1. Magnesium level 2.1, troponins were negative 3. Triglyceride level is 545, cholesterol 148, LDL unobtainable, HDL 32. At the time of my examination this morning, he is currently complaining of pain at about a 5 on a scale of 1-10. 11/24/2017 Patient was taken to the cardiac catheterization lab yesterday by Dr. Zuniga, where he underwent PTCA of the ramus intermediate with reduction of stenosis from 80% to less than 30%. This morning patient has been ambulating in the laboy , does complain of intermittent chest discomfort similar to when he came in the hospital. We will maximize his medications, increasing and nitrates. He will follow-up with his flower arranger in the [place] area post discharge. Sodium 142, potassium 4.4, BUN 12, creatinine 1.1. White blood cell count 8.0, hemoglobin 13.4, platelet count 243. EKG shows normal sinus rhythm with no changes from post-PCI. Objective - Vital Signs Vital signs: Vital Signs Temp 97 F L 11/24/17 08:00 Pulse 63 11/24/17 09:28 Resp 16 11/24/17 08:00 BP 119/72 11/24/17 09:28 Pulse Ox 95 11/24/17 08:00 Intake & Output 11/23/17 11/24/17 11/24/17 18:59 06:59 18:59 Intake Total 1135.08 820 240 Output Total 550 1050 Balance 585.08 -230 240 Weight 105.6 kg 104.5 kg Intake: IV 390 820 Sodium Chloride 0.9% 1, 820 000 ml @ 20 mls/hr IV . Q24H [facility] Rx#:[id number] Intake, IV Titration 595.08 Amount Heparin Sod,Pork in 0.45% 145.08 NaCl 25,000 unit In 0.45 % NaCl 1 500ml.bag @ 9.59 UNITS/KG/HR 20 mls/hr IV .Q24H [facility] Rx#:[id number] IV Fluid Continuation 1, 150 000 ml @ 0 mls/hr IV .STK -MED ONE Rx#:[id number] Sodium Chloride 0.9% 1, 300 000 ml @ 100 mls/hr IV . Q10H [facility] Rx#:[id number] Oral 150 240 Output: Urine 550 1050 Other: Voiding Method Urinal Urinal # Voids 1 - Exam PHYSICAL EXAMINATION: GENERAL: 62-year-old gentleman complaining of midsternal chest pressure at the time of my examination HEENT: Head is atraumatic, normocephalic. Pupils equal, round. Sclera anicteric. Conjunctiva are clear. Mucous membranes of the mouth are moist. Neck is supple. There is no elevated jugular venous pressure. No carotid bruit is heard. HEART EXAMINATION: Heart S1, S2 normal. No murmur or gallop heard. CHEST EXAMINATION: Lungs are clear to auscultation and precussion. No chest wall tenderness is noted on palpation or with deep breathing. ABDOMEN: Soft, nontender. Bowel sounds are heard. No organomegaly noted. Right groin soft, no evidence of any hematoma. EXTREMITIES: 2+ peripheral pulses with no evidence of peripheral edema and no calf tenderness noted. NEUROLOGIC patient is awake, alert and oriented X3. . - Labs CBC & Chem 7: 11/24/17 07:44 11/24/17 07:44 Labs: Abnormal Lab Results - Last 24 Hours (Table) 11/23/17 11/23/17 11/24/17 Range/Units 16:49 20:31 05:53 Chloride (98-107) mmol/L Carbon Dioxide (22-30) mmol/L Glucose (74-99) mg/dL POC Glucose (mg/dL) 111 H 125 H 121 H (75-99) mg/dL 11/24/17 11/24/17 Range/Units 07:44 11:37 Chloride 111 H (98-107) mmol/L Carbon Dioxide 21 L (22-30) mmol/L Glucose 129 H (74-99) mg/dL POC Glucose (mg/dL) 157 H (75-99) mg/dL Assessment and Plan Plan: Assessment and plan #1 chest pain, suggestive of possible angina. Acute coronary syndrome has been ruled out. Troponins are negative 3. EKG shows normal sinus rhythm with right bundle branch block pattern #2 known history of coronary artery disease with prior bypass surgery and multiple stents placed, most recent was on . #3 hypertension #4 hyperlipidemia, patient is intolerant to statins, was initiated Repatha one year ago. #5 recent appendectomy approximately 3 weeks ago #6Recent gout flareup of the right foot #7 diabetes #8 prior CVA Plan Patient was taken to the cardiac catheterization lab yesterday where he underwent PTCA of the ramus intermediate with reduction in stenosis from 80% to less than 30%. From cardiology's perspective, he may be able to be discharged home today after lunch, he will follow-up with his flower arranger in the office in [place] next week. He will continue on aspirin 81 mg daily, Repatha, as he was on as an outpatient for hyperlipidemia, we'll increase his Imdur to 60 mg daily, patient was taking 30 mg daily at home, continue Zestril 5 mg daily, Lopressor 50 mg twice a day, Effient 10 mg daily, and Ranexa 1000 mg twice a day along with sublingual nitroglycerin. PROPERTY SITE MANAGER note has been reviewed, I agree with a documented findings and plan of care. Patient was seen and examined.
[2017-11-24 12:47] VITALS: BP 117/60; PULSE 70; TEMP 98.8
--- NOTE | 2017-11-30 11:10 | CDI ---
Last Revision, February 2017 Documentation Clarification Form Date: 11/30/17 From: Josy Bruce Lina Castillo, Absorber Operator Hours-8:30 am & 5 pm Cristy Admit Date: 11/23/2017 2:21:00 PM Patient Name: Domingo Silva Visit Number: [id number] Discharge Date: 11/24/17 ATTENTION: The Clinical Documentation Specialists (CDI) and [facility] Coding Staff appreciate your assistance in clarifying documentation. Please respond to the clarification below the line at the bottom and electronically sign. The CDI & [facility] Coding staff will review the response and follow-up if needed. Please note: Queries are made part of the Legal Health Record. If you have any questions, please contact the author of this message via ITS. Nils Bates MD Conflicting documentation has been found in the medical record. The PTCA report documents that stents were deployed but unsuccessful and removed . Then a Trek balloon was inserted reducing the stenosis from 80% to 30%. Then it states "Those images revealed stable successful stenting." The DS states - cardiac catherterization and stenting of RI branch that is subtotally occluded mid LAD and significant disease in RI. History/Risk Factors: CAD with multiple stents, DM, HTN In your opinion what is the most clinically appropriate procedure for this patient? DANIEL placed DANIEL not placed Other explanation of clinical findings Unable to determine (no explanation for clinical findings) Please continue to document in your progress notes and discharge summary in order to capture severity of illness and risk of mortality. Include clinical findings that support your diagnosis. ___No stenting was performed, only PTCA MTDD
== END 2017-11-24 16:37 | disposition home or self-care (01) | DRG 251 ==
LOC: EC 09:59 → 6SEL 12:39 → OBSVTOIN 11-23 14:21 → 6SEL 11-23 19:41
PROVIDERS: ADMIT Hospitalist; ATTEND Hospitalist
PROC: B211YZZ Fluoroscopy of Multiple Coronary Arteries using Other Contrast (ICD-10-PCS; 2017-11-23)
PROC: B213YZZ Fluoroscopy of Multiple Coronary Artery Bypass Grafts using Other Contrast (ICD-10-PCS; 2017-11-23)
PROC: 02703ZZ Dilation of Coronary Artery, One Artery, Percutaneous Approach (ICD-10-PCS; principal; 2017-11-23 11:20)
PROC: 4A023N7 Measurement of Cardiac Sampling and Pressure, Left Heart, Percutaneous Approach (ICD-10-PCS; 2017-11-23 11:20)
DX: I25.110 Atherosclerotic heart disease of native coronary artery with unstable angina pectoris (principal); E11.9 Type 2 diabetes mellitus without complications; K80.20 Calculus of gallbladder without cholecystitis without obstruction; I45.10 Unspecified right bundle-branch block; I25.2 Old myocardial infarction; I10 Essential (primary) hypertension; E78.5 Hyperlipidemia, unspecified; M10.9 Gout, unspecified; G47.30 Sleep apnea, unspecified; G43.909 Migraine, unspecified, not intractable, without status migrainosus; M54.30 Sciatica, unspecified side; M19.91 Primary osteoarthritis, unspecified site; Z79.84 Long term (current) use of oral hypoglycemic drugs; Z79.02 Long term (current) use of antithrombotics/antiplatelets; Z79.82 Long term (current) use of aspirin; Z79.899 Other long term (current) drug therapy; Z95.5 Presence of coronary angioplasty implant and graft; Z95.1 Presence of aortocoronary bypass graft; Z86.73 Personal history of transient ischemic attack (TIA), and cerebral infarction without residual deficits; Z98.42 Cataract extraction status, left eye; Z98.41 Cataract extraction status, right eye; Z88.2 Allergy status to sulfonamides; Z88.8 Allergy status to other drugs, medicaments and biological substances; Z82.49 Family history of ischemic heart disease and other diseases of the circulatory system; Z83.3 Family history of diabetes mellitus; Z83.49 Family history of other endocrine, nutritional and metabolic diseases; Z83.518 Family history of other specified eye disorder
CPT/HCPCS: 36415; 71046; 76705; 80048; 80053; 80061; 82550; 82553; 83036; 83605; 83735; 84484; 85025; 85027; 85610; 85730; 93005; 93306; 93459; 96365; 96366; 96368; 96376; 99291

== ENCOUNTER 2018-11-03 22:16 | Observation (INO) | payer OTHER ==
[2018-11-03] MEDS ORDERED: HEPARIN SODIUM,PORCINE 5,000 UNIT/ML 1 ML VIAL IV STA (22:34)
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
[2018-11-03] MEDS ORDERED: HEPARIN SOD,PORK IN 0.45% NACL 25,000 UNIT in 0.45% NACL 1 250ML.BAG IV SCH (22:45)
[2018-11-03] MEDS ORDERED: ONDANSETRON 4 MG/2 ML VIAL IVP STA ×2 (22:55→23:55)
[2018-11-03 23:02] LABS: Anisocytosis Slight; Basophils # (A) 0.1 k/uL (0-0.2); Basophils % (A) 1 %; Eosinophils # (A) 0.3 k/uL (0-0.7); Eosinophils % (A) 4 %; HCT 38.5 % (39.0-53.0); Hypochromasia Moderate; Lymphocytes # (A) 2.7 k/uL (1.0-4.8); Lymphocytes % (A) 32 %; MCH 22.3 pg (25.0-35.0); MCHC 31.3 g/dL (31.0-37.0); MCV 71.2 fL (80.0-100.0); Mean Platelet Volume 6.4; Microcytosis Marked; Monocytes # (A) 0.6 k/uL (0-1.0); Monocytes % (A) 7 %; Neutrophils # (A) 4.5 k/uL (1.3-7.7); Neutrophils % (A) 54 %; Platelet Count 307 k/uL (150-450); RDW 18.4 % (11.5-15.5); WBC 8.4 k/uL (3.8-10.6)
[2018-11-03 23:10] LABS: Albumin 3.9 g/dL (3.5-5.0); Calcium 8.8 mg/dL (8.4-10.2); Magnesium 2.1 mg/dL (1.6-2.3); Potassium 3.9 mmol/L (3.5-5.1); Prothrombin Time 10.4 sec (9.0-12.0); Total Bilirubin 0.3 mg/dL (0.2-1.3); Total Protein 6.6 g/dL (6.3-8.2)
--- NOTE | 2018-11-03 23:24 | XR ---
EXAM: XR Chest, 2 Views CLINICAL HISTORY: ITS.REASON XR Reason: Chest Pain TECHNIQUE: Frontal and lateral views of the chest. COMPARISON: No relevant prior studies available. FINDINGS: Lungs: Unremarkable. No consolidation. Pleural space: Unremarkable. No pneumothorax. Heart: No suspicious enlargement. Mediastinum: Unremarkable. Bones/joints: No acute fracture. IMPRESSION: No acute findings.
[2018-11-03] MEDS: NITROGLYCERIN SL TABS 0.4 MG TAB SUBLINGUAL STA ×2 (23:25→23:30)
[2018-11-03] MEDS: SODIUM CHLORIDE 0.9% 1,000 ML IV SCH (23:30)
[2018-11-03] MEDS ORDERED: MORPHINE SULFATE 4 MG/ML SYRINGE IVP STA (23:56)
[2018-11-03] MEDS ORDERED: NITROGLYCERIN OINT 1 INCH/GM PACKET TOPICAL STA (23:56)
[2018-11-03] MEDS ORDERED: MORPHINE SULFATE 4 MG/ML SYRINGE IV PRN (23:59)
[2018-11-03] MEDS ORDERED: NITROGLYCERIN SL TABS 0.4 MG TAB SUBLINGUAL PRN (23:59)
[2018-11-04] MEDS ORDERED: NITROGLYCERIN OINT 1 INCH/GM PACKET TOPICAL SCH
[2018-11-04] MEDS ORDERED: Tapentadol Hcl [Nucynta] 50 MG PO PRN (00:03)
[2018-11-04] MEDS ORDERED: PROMETHAZINE 25 MG TAB PO PRN (00:03)
[2018-11-04] MEDS ORDERED: BACLOFEN 10 MG TAB PO PRN (00:03)
[2018-11-04] MEDS ORDERED: COLCHICINE 0.6 MG EACH PO PRN (00:03)
[2018-11-04 02:39] VITALS: RESP 18
[2018-11-04 07:09] LABS: Cholesterol 116 mg/dL (<200); HDL Cholesterol 34 mg/dL (40-60); LDL Cholesterol,Calculated 53 mg/dL (0-99); Triglycerides 146 mg/dL (<150)
[2018-11-04] MEDS ORDERED: LORATADINE 10 MG TAB PO SCH (09:00)
[2018-11-04] MEDS ORDERED: ASPIRIN 325 MG TAB PO SCH (09:00)
[2018-11-04] MEDS ORDERED: CLOPIDOGREL 75 MG TAB PO SCH (09:00)
[2018-11-04] MEDS ORDERED: TOPIRAMATE 100 MG TAB PO SCH (09:00)
[2018-11-04] MEDS ORDERED: metFORMIN 500 MG TAB PO SCH (09:00)
[2018-11-04] MEDS ORDERED: DULoxetine HCL 30 MG CAPSULE.DR PO SCH (09:00)
[2018-11-04] MEDS ORDERED: PANTOPRAZOLE 40 MG TABLET PO SCH (09:00)
[2018-11-04] MEDS ORDERED: amLODIPine 2.5 MG TAB PO SCH (09:00)
[2018-11-04] MEDS ORDERED: SERTRALINE 100 MG TAB PO SCH (09:00)
[2018-11-04] MEDS ORDERED: LOSARTAN 25 MG TAB PO SCH (09:00)
[2018-11-04] MEDS ORDERED: ISOSORBIDE MONONITRATE ER 30 MG TAB.ER.24H PO SCH (09:00)
[2018-11-04] MEDS ORDERED: METOPROLOL TARTRATE 25 MG TAB PO SCH (09:00)
[2018-11-04] MEDS ORDERED: ALPRAZolam 0.25 MG TAB PO PRN (09:06)
[2018-11-04] MEDS ORDERED: ALPRAZolam 0.5 MG TAB PO PRN (09:06)
[2018-11-04] MEDS ORDERED: ATORVASTATIN 80 MG TAB PO STA (09:06)
[2018-11-04] MEDS ORDERED: LIDOCAINE 1% INJ 10MG/ML (20 ML MDV) ONE (10:20)
[2018-11-04] MEDS ORDERED: HEPARIN SODIUM,PORCINE 30 ML 30 ML ONE (10:20)
[2018-11-04] MEDS ORDERED: fentaNYL (PF) 50 MCG/ML 2 ML AMP ONE (10:39)
[2018-11-04] MEDS ORDERED: SODIUM CHLORIDE 0.9% 1,000 ML IV ONE (10:42)
[2018-11-04] MEDS ORDERED: fentaNYL (PF) 50 MCG/ML 2 ML AMP IVP ONE (10:48)
[2018-11-04] MEDS ORDERED: MIDAZOLAM (PF) 2 MG/2 ML VIAL IVP ONE (10:48)
[2018-11-04] MEDS ORDERED: LIDOCAINE 1% INJ 10MG/ML (20 ML MDV) SQ ONE (10:50)
[2018-11-04] MEDS ORDERED: IOPAMIDOL-370 100ML BTL INJ ONE (11:11)
[2018-11-04] MEDS ORDERED: RX INFO: IV CONTRAST WAS GIVEN 1 EACH MISC MISCELLANE PRN (11:19)
[2018-11-04 11:41] LABS: Glucose,Whole Blood 98 mg/dL (75-99)
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
[2018-11-04] MEDS: DICYCLOMINE 10 MG CAP PO SCH ×2 (13:32→14:49)
[2018-11-04] MEDS: SODIUM CHLORIDE 0.9% 1,000 ML IV SCH (13:35)
[2018-11-04 15:46] VITALS: BP 150/74; PULSE 52; TEMP 97.8
[2018-11-04 16:53] LABS: Glucose,Whole Blood 99 mg/dL (75-99)
[2018-11-04] MEDS ORDERED: traZODone HCL 50 MG TAB PO SCH (21:00)
--- NOTE | 2018-11-05 07:09 | ECHOF ---
Referral Reason:cp MEASUREMENTS -------- HEIGHT: 182.9 cm WEIGHT: 98.0 kg BP: 115/61 RVIDd: 3.4 cm (< 3.3) IVSd: 1.5 cm (0.6 - 1.1) LVIDd: 4.3 cm (3.9 - 5.3) LVPWd: 1.4 cm (0.6 - 1.1) IVSs: 1.9 cm LVIDs: 3.0 cm LVPWs: 1.8 cm LA Diam: 3.8 cm (2.7 - 3.8) LAESV Index (A-L): 27.76 ml/m Ao Diam: 3.6 cm (2.0 - 3.7) AV Cusp: 2.3 cm (1.5 - 2.6) MV EXCURSION: 18.742 mm (> 18.000) MV EF SLOPE: 97 mm/s (70 - 150) EPSS: 0.5 cm RAP: 5.00 mmHg RVSP: 35.57 mmHg FINDINGS -------- Sinus rhythm. This was a technically adequate study. The left ventricular size is normal. There is moderate concentric left ventricular hypertrophy. O verall left ventricular systolic function is normal with, an EF between 55 - 60 %. The right ventricle is mildly enlarged. Normal LA size by volume 22+/-6 ml/m2. The right atrium is normal in size. 3 ml of Lumason was utilized for enhancement of images. Interatrial and interventricular septum intact. There is mild aortic regurgitation. The mitral valve is normal. Mild tricuspid regurgitation present. There is mild pulmonary hypertension. The right ventricular systolic pressure, as measured by Doppler, is 35.57mmHg. Trace/mild (physiologic) pulmonic regurgitation. The aortic root size is normal. Normal inferior vena cava with normal inspiratory collapse consistent with estimated right atrial pre ssure of 5 mmHg. There is no pericardial effusion. CONCLUSIONS -------- 1. Sinus rhythm. 2. This was a technically adequate study. 3. The left ventricular size is normal. 4. There is moderate concentric left ventricular hypertrophy. 5. Overall left ventricular systolic function is normal with, an EF between 55 - 60 %. 6. The right ventricle is mildly enlarged. 7. Normal LA size by volume 22+/-6 ml/m2. 8. The right atrium is normal in size. 9. 3 ml of Lumason was utilized for enhancement of images. 10. Interatrial and interventricular septum intact. 11. There is mild aortic regurgitation. 12. The mitral valve is normal. 13. Mild tricuspid regurgitation present. 14. There is mild pulmonary hypertension. 15. The right ventricular systolic pressure, as measured by Doppler, is 35.57mmHg. 16. Trace/mild (physiologic) pulmonic regurgitation. 17. The aortic root size is normal. 18. Normal inferior vena cava with normal inspiratory collapse consistent with estimated right atrial pressure of 5 mmHg. 19. There is no pericardial effusion. [employer]: Ana Hdz RDCS
[2018-11-05] MEDS ORDERED: ASPIRIN 81 MG PO SCH (09:00)
[2018-11-06] MEDS ORDERED: metFORMIN 500 MG TAB PO SCH (21:00)
== END 2018-11-04 18:38 | disposition home or self-care (01) ==
LOC: EC 22:16 → 1SOBS 23:59
PROVIDERS: ADMIT Internal Medicine; ATTEND Internal Medicine
DX: R07.89 Other chest pain (principal); I25.10 Atherosclerotic heart disease of native coronary artery without angina pectoris; I10 Essential (primary) hypertension; I45.10 Unspecified right bundle-branch block; E11.9 Type 2 diabetes mellitus without complications; G47.33 Obstructive sleep apnea (adult) (pediatric); E78.5 Hyperlipidemia, unspecified; M19.90 Unspecified osteoarthritis, unspecified site; M10.9 Gout, unspecified; R41.3 Other amnesia; M54.30 Sciatica, unspecified side; G43.909 Migraine, unspecified, not intractable, without status migrainosus; G89.29 Other chronic pain; M54.9 Dorsalgia, unspecified; Z99.89 Dependence on other enabling machines and devices; Z79.82 Long term (current) use of aspirin; Z79.84 Long term (current) use of oral hypoglycemic drugs; Z79.02 Long term (current) use of antithrombotics/antiplatelets; Z79.899 Other long term (current) drug therapy; Z88.2 Allergy status to sulfonamides; Z88.8 Allergy status to other drugs, medicaments and biological substances; Z95.1 Presence of aortocoronary bypass graft; Z86.73 Personal history of transient ischemic attack (TIA), and cerebral infarction without residual deficits; I25.2 Old myocardial infarction; Z90.49 Acquired absence of other specified parts of digestive tract; Z95.5 Presence of coronary angioplasty implant and graft; Z98.49 Cataract extraction status, unspecified eye; Z83.3 Family history of diabetes mellitus; Z82.49 Family history of ischemic heart disease and other diseases of the circulatory system; Z83.49 Family history of other endocrine, nutritional and metabolic diseases; Z83.518 Family history of other specified eye disorder
CPT/HCPCS: 96376 ×3; 96365; 96366; 96375 ×2; 99291; 36415; 93005; 93306; 93458; 80061; 80053; 82550; 83735; 84484 ×2; 85025; 85610; 85730 ×2; 71046; G0378 ×2; C1760; C1894; C1769; J2270; J1644 ×2; J2405 ×2; J2001; J3010; Q9950; Q9967; J2250

== ENCOUNTER → 2018-12-09 | Outpatient (CLI) | payer OTHER ==
[2018-12-09 15:05] LABS: INR 0.9 (<1.2); Partial Thromboplastin Time 24.7 sec (22.0-30.0); Prothrombin Time 9.7 sec (9.0-12.0)
[2018-12-09 15:09] LABS: Albumin 4.4 g/dL (3.5-5.0); Calcium 9.5 mg/dL (8.4-10.2); Potassium 4.5 mmol/L (3.5-5.1); Total Bilirubin 0.3 mg/dL (0.2-1.3); Total Protein 7.5 g/dL (6.3-8.2)
[2018-12-09 15:19] LABS: Appearance,Urine Clear (Clear); Bilirubin,Urine Negative (Negative); Blood,Urine Negative (Negative); Color,Urine Light Yellow; Glucose,Urine (UA) Negative (Negative); Ketones,Urine Negative (Negative); Leukocyte Esterase,Urine Negative (Negative); Nitrite,Urine Negative (Negative); PH, Urine 5.5 (5.0-8.0); Protein,Urine Negative (Negative); Specific Gravity,Urine 1.012 (1.001-1.035); Urobilinogen,Urine <2.0 mg/dL (<2.0)
[2018-12-09 16:59] LABS: Anisocytosis Slight; Basophils # (A) 0.1 k/uL (0-0.2); Basophils % (A) 0 %; Eosinophils % (A) 0 %; HCT 41.1 % (39.0-53.0); Hypochromasia Marked; Lymphocytes # (A) 0.8 k/uL (1.0-4.8); Lymphocytes % (A) 6 %; MCH 22.7 pg (25.0-35.0); MCHC 29.3 g/dL (31.0-37.0); Mean Platelet Volume 6.8; Microcytosis Slight; Monocytes # (A) 0.4 k/uL (0-1.0); Monocytes % (A) 2 %; Neutrophils # (A) 13.8 k/uL (1.3-7.7); Neutrophils % (A) 91 %; Platelet Count 346 k/uL (150-450); RBC 5.31 m/uL (4.30-5.90); RDW 17.7 % (11.5-15.5); WBC 15.2 k/uL (3.8-10.6)
[2018-12-09 17:06] LABS: MCV 77.5 fL (80.0-100.0)
== END | disposition home or self-care (01) ==
LOC: LABPAT 13:43
PROVIDERS: ATTEND Orthopaedic Surgery Orthopaedic Surgery of the Spine
DX: Z01.812 Encounter for preprocedural laboratory examination (principal); M48.061 Spinal stenosis, lumbar region without neurogenic claudication
CPT/HCPCS: 80053; 81003; 85025; 85610; 85730

== ENCOUNTER 2018-12-21 08:39 | Observation (INO) | payer OTHER ==
[2018-12-15 14:31] VITALS: BMI 29.4
[2018-12-21] MEDS: LACTATED RINGERS 1,000 ML IV SCH (07:20)
[~2018-12-21 08:39] MED LIST: BACITRACIN 50,000 UNIT, POLYMYXIN B 500,000 UNIT in SODIUM CHLORIDE 0.9% IRRIGATIO 1,00... IRRIGATION ONE; DEXAMETHASONE SOD PHOSPHATE 10 MG/ML 1 ML VIAL IV ONE; GELATIN SPONGE,ABSORB (LARGE) 1 EACH SPONGE TOPICAL ONE; GLYCOPYRROLATE 0.2 MG/ML 2 ML VIAL ONE; LIDOCAINE 0.5%-EPI 1:200,000 50 ML VIAL SQ ONE; LIDOCAINE 1% 20 ML VIAL (10MG/ML) FOR IV START INTRADERMA PRN; LIDOCAINE 1% INJ 10MG/ML (20 ML MDV) ONE; MIDAZOLAM 2 MG/2 ML VIAL IV PRN; MIDAZOLAM 2 MG/2 ML VIAL ONE; NEOSTIGMINE 1 MG/ML 10 ML VIAL ONE; ONDANSETRON 4 MG/2 ML VIAL IVP ONE; PROPOFOL 10 MG/ML 20 ML VIAL IV ONE; ROCURONIUM BROMIDE 10 MG/ML 10 ML VIAL IV ONE; SCOPOLAMINE 1.5MG/72HR PATCH TRANSDERM ONE; SUCCINYLCHOLINE CHLORIDE 100 MG/5 ML SYR IV ONE; THROMBIN (BOVINE) 5,000 UNIT VIAL TOPICAL ONE; ePHEDrine SULFATE/0.9% NACL/PF 50 MG/5 ML SYRINGE IV ONE; fentaNYL (PF) 50 MCG/ML 2 ML AMP ONE; methylPREDNISolone ACETATE 40 MG/ML 1 ML VIAL MISCELLANE ONE
[2018-12-21] MEDS ORDERED: LACTATED RINGERS 1,000 ML IV ONE (09:24)
[2018-12-21] MEDS ORDERED: ONDANSETRON 4 MG/2 ML VIAL IVP PRN (09:37)
[2018-12-21] MEDS ORDERED: IBUPROFEN 600 MG TAB PO PRN (09:37)
[2018-12-21] MEDS ORDERED: HYDROcodone/APAP 5-325MG 1 EACH TAB PO PRN (09:37)
[2018-12-21] MEDS ORDERED: BENZOCAINE/MENTHOL LOZENG 1 EACH LOZENGE MUCOUS MEM PRN (09:37)
[2018-12-21] MEDS ORDERED: HYDROmorphone 1 MG/ML 1 ML SYRINGE IVP PRN (09:37)
[2018-12-21] MEDS ORDERED: KETOROLAC 30 MG/ML 1 ML VIAL IVP PRN (09:37)
[2018-12-21] MEDS ORDERED: HYDROmorphone 0.5 MG/0.5 ML SYRINGE IVP PRN (09:37)
[2018-12-21] MEDS ORDERED: SUMAtriptan SUCCINATE 50 MG TAB PO PRN (09:39)
[2018-12-21] MEDS ORDERED: tiZANidine 4 MG TAB PO PRN (09:39)
[2018-12-21] MEDS ORDERED: BACLOFEN 10 MG TAB PO PRN (09:39)
[2018-12-21] MEDS ORDERED: PROMETHAZINE 25 MG TAB PO PRN (09:39)
[2018-12-21] MEDS ORDERED: COLCHICINE 0.6 MG EACH PO PRN (09:39)
[2018-12-21] MEDS ORDERED: TAPENTADOL HCL 50 MG PO PRN (09:39)
--- NOTE | 2018-12-21 09:49 | FL ---
Fluoroscopy HISTORY: Lumbar laminectomy 4 seconds fluoroscopy time supplied to the referring clinician. 1 intraoperative C-arm images docume nt the procedure. See dictated report from orthopedic surgery.
--- NOTE | 2018-12-21 09:54 | P.OP ---
Date of Procedure: 12/21/18 Preoperative Diagnosis: Spinal stenosis L2-3 L3 4, retrolisthesis L2 through L3 4, degenerative disc disease, facet arthrosis, foraminal stenosis, neurogenic claudication, lower extremity radiculopathy Postoperative Diagnosis: Same Anesthesia: GETA Pathology: none sent Condition: stable Disposition: PACU Description of Procedure: BRIEF OPERATIVE NOTE Preoperative Diagnosis:Spinal stenosis L2-3 L3 4, retrolisthesis L2 3, L3 4, degenerative disc disease, facet arthrosis, foraminal stenosis, neurogenic claudication, lower extremity radiculopathy Postoperative Diagnosis:Spinal stenosis L2-3 L3 4, retrolisthesis L2 3, L3 4, degenerative disc disease, facet arthrosis, foraminal stenosis, neurogenic claudication, lower extremity radiculopathy Procedure: Laminectomy and decompression L2-3 L3 4 Wide bilateral foraminotomies L2-3 L3 4 with partial medial facetectomy Surgeon: Dr. Buck Medicaid Billing Specialist: Aftab Bowens is present throughout the entire the case persistence during positioning, dissection, exposure, visualization, and all crucial elements of the case as well as closure. Anesthesia: General anesthesia Estimated blood loss: Approximately 50 mL Complications: None apparent Components implanted: None Disposition: To recovery room in good stable condition. OPERATIVE INDICATIONS The patient has been having issues in their lower back and lower extremities. He was having neurogenic claudication his bilateral lower extremity is on the left worse than the right. His found to have evidence of stenosis particularly at the neural foramen at L2-3 and L3 4 which correlated with his low back and lower extremity symptoms he disc degeneration and slight retrolisthesis as well. The patient has been through conservative treatment. He is not having any lasting benefit despite conservative care. We discussed various treatment options including surgery, and the patient wishes to proceed with surgery. We discussed the possibility of decompression alone versus decompression and fusion with hardware versus the possibility of decompression with some interlaminar stabilization. His insurance company does not cover interlaminar stabilization. We discussed her options based on this information and felt that decompression alone would give him good relief of the stenosis and he may not require stabilization or fusion. We discussed the risk, patient's alternatives and benefits of surgery including but not limited to, risk of bleeding risk of infection, risk of need for further surgery, risk of decreased, loss of motion, loss of function, nerve damage, paralysis, heart attack, blindness and . OPERATIVE SUMMARY After discussing all the risks, patient alternatives and benefits at length, the patient elected to proceed with surgical intervention, signed informed consent, and presented for their procedure. The patient was seen and examined in the preoperative holding area and the surgical site was marked. The patient was given antibiotics and brought to the operating room. The patient was sedated and intubated by anesthesia in standard fashion. The patient was positioned on to the operating room table in a prone position on the appropriate frame which was well-padded and well molded. We were careful to pad any bony prominences and pressure points. We were careful to maintain the noy ent's cervical spine and good neutral alignment and position throughout. The patient was prepped and draped in a normal standard fashion. An appropriate timeout and keystone protocol performed. We were able to proceed with the surgery. Fluoroscopy was utilized to establish the appropriate level at L2-3 and L3 4. The local wound area was infiltrated with local anesthetic. An incision was made at the midline longitudinally over the appropriate levels from L2 to L4. Dissection was taken down subcutaneously to the level of the fascia which was split midline. Dissection was taken over the lamina. Intraoperative fluoroscopy was taken which showed a marker at the appropriate level of L2-3. With the appropriate level positively confirmed, we were able to proceed with laminectomy. I started at L2-3 and then moved L3 4. The wound was copiously irrigated and suctioned dry as had been done periodically throughout the case. I performed a laminectomy with a combination of curettes and a high- speed bur and Kerrison rongeurs. A small medial facetectomy was performed again further access. A partial foraminotomy was also performed. Portions of the ligamentum flavum were taken down to expose the dura and traversing nerve root. Note was made of thickening of the ligamentum flavum and of the facet joint and capsule. I was able to take down the ligamentum flavum and portions of the facet joint and capsule to it decompression and wide decompression at the neural foramen and at the canal. This was done bilaterally. I was able get excellent central and bilateral foraminal decompression. I was able to mobilize the traversing nerve root and gain access to the disc space. I do not find any specific herniation or extruded disc fragments. There were no extruded fragments noted. There is no evidence of dural tear or leak. Good hemostasis maintained. The wound was copiously irrigated and suctioned dry. This was done at L2-3 and L3 4 Good decompression was noted. We were able to proceed with closure. The fascia was closed for a watertight closure. The subcuticular tissue was closed with absorbable suture. The wound was cleaned and dried and dressed with the appropriate dressing. The drapes were broken down. The patient was gently rolled back onto their hospital bed being careful to maintain their cervical spine and good neutral alignment and position. They were woken up by anesthesia, extubated, and brought to the recovery room in good stable condition. The patient will be admitted to the hospital for observation and for appropriate postoperative care, medical management and monitoring. We will continue to follow them closely about the postoperative course.
[2018-12-21] MEDS: HYDROmorphone 0.5 MG/0.5 ML SYRINGE IVP PRN ×4 (10:04→11:24)
[2018-12-21 10:20] LABS: Glucose,Whole Blood 95 mg/dL (75-99)
[2018-12-21] MEDS: SODIUM CHLORIDE 0.9% 1,000 ML IV SCH ×2 (13:17→23:52)
[2018-12-21] MEDS: HYDROcodone/APAP 5-325MG 1 EACH TAB PO PRN ×2 (13:23→20:29)
[2018-12-21] MEDS: HYDROmorphone 1 MG/ML 1 ML SYRINGE IVP PRN ×3 (14:56→22:26)
[2018-12-21] MEDS ORDERED: DICYCLOMINE 10 MG CAP PO PRN (15:51)
[2018-12-21] MEDS ORDERED: DICYCLOMINE 10 MG CAP PO SCH (16:00)
[2018-12-21 16:47] LABS: Glucose,Whole Blood 129 mg/dL (75-99)
[2018-12-21] MEDS: ISOSORBIDE MONONITRATE ER 30 MG TAB.ER.24H PO SCH (20:29)
[2018-12-21] MEDS: TOPIRAMATE 100 MG TAB PO SCH (20:29)
[2018-12-21] MEDS: metFORMIN 500 MG TAB PO SCH (20:29)
[2018-12-21 20:51] LABS: Glucose,Whole Blood 145 mg/dL (75-99)
[2018-12-21] MEDS ORDERED: LOSARTAN 25 MG TAB PO SCH (21:00)
[2018-12-21] MEDS ORDERED: traZODone HCL 50 MG TAB PO SCH (21:00)
[2018-12-22 02:18] VITALS: PULSE 81
[2018-12-22] MEDS: HYDROcodone/APAP 5-325MG 1 EACH TAB PO PRN (04:08)
[2018-12-22 06:55] LABS: Glucose,Whole Blood 124 mg/dL (75-99)
[2018-12-22] MEDS ORDERED: PANTOPRAZOLE 40 MG TABLET PO SCH (07:30)
[2018-12-22] MEDS: TOPIRAMATE 100 MG TAB PO SCH (08:08)
[2018-12-22] MEDS: ISOSORBIDE MONONITRATE ER 30 MG TAB.ER.24H PO SCH (08:08)
[2018-12-22] MEDS: metFORMIN 500 MG TAB PO SCH (08:08)
[2018-12-22] MEDS: HYDROmorphone 1 MG/ML 1 ML SYRINGE IVP PRN (08:13)
[2018-12-22 08:29] LABS: Glucose,Whole Blood 119 mg/dL (75-99)
[2018-12-22 08:31] VITALS: BP 147/65; RESP 16; TEMP 97.2
--- NOTE | 2018-12-22 08:47 | P.DS ---
Providers Date of admission: 12/21/18 19:16 Attending physician: Miguel Angel Buck Primary care physician: Stated None Hospital Course: The patient presented on the day of admission as per their operative note. He has been making good progress in terms of his legs. He feels his legs are doing well. He has been having pain in his back but he has been able to get up and around and is ambulatory in the hallways. He is voiding freely. His tolerating his diet well. Physical Exam The incision site is clean dry and intact. There is no erythema no drainage. There is no purulence no evidence of infection. The dressing is intact without any drainage. Abdomen soft and nontender. Chest has good excursion with deep inspiration and expiration. The patient has active and passive range of motion intact at the upper and lower extremities. There is no acute change in neurologic status. He has good sustained dorsal flexion plantarflexion and EHL intact. Hospital Course Postoperative day #1 status post laminectomy decompression L2-3 L3 4 for his stenosis with neurogenic claudication and lower extremity radiculopathy. The patient has been making good progress postoperatively. They have completed the prophylactic antibiotics without any signs or symptoms of infection. The patient has been able to advance their diet, and is tolerating diet adequately. The pain was initially controlled with IV medications and is now controlled appropriately with oral medications. The patient has been able to increase their mobilization. The patient has progressed appropriately. I think they are in good stable condition for discharge today. They will be sent home with appropriate prescriptions. I answered their questions to the best of my ability in a language that they can understand and they are agreeable with the plan. They will follow up as directed in approximately 2 weeks or sooner if he is having any problems. Patient Condition at Discharge: Good Plan - Discharge Summary Discharge Rx Participant: Yes New Discharge Prescriptions: New HYDROcodone/APAP 5-325MG [[place] 5] 1 each PO Q4HR PRN #42 tab PRN Reason: Pain No Action Promethazine [Phenergan] 12.5 mg PO TID PRN PRN Reason: Nausea And Vomiting DULoxetine HCL [Cymbalta] 30 mg PO DAILY Aspirin EC [Ecotrin Low Dose] 81 mg PO DAILY Evolocumab [Repatha Sureclick] 140 mg SQ Q14D Pantoprazole Sodium 40 mg PO DAILY Colchicine [Colcrys] 0.6 mg PO Q12H PRN PRN Reason: GOUT metFORMIN HCL ER [Glucophage Xr] 500 mg PO BID Dicyclomine HCl 10 mg PO TID Sertraline [Zoloft] 100 mg PO DAILY Fexofenadine HCl [Vidhya Allergy] 180 mg PO DAILY Clopidogrel [Plavix] 75 mg PO DAILY Baclofen [Lioresal] 10 mg PO TID PRN PRN Reason: Muscle Pain traZODone HCL 25 mg PO HS Topiramate [Topamax] 100 mg PO BID Tapentadol HCl [Nucynta] 50 mg PO TID PRN PRN Reason: Pain Metoprolol Tartrate [Lopressor] 25 mg PO QAM Isosorbide Mononitrate ER [Imdur] 30 mg PO BID Losartan Potassium [Cozaar] 25 mg PO HS SUMAtriptan SUCCINATE [Imitrex] 50 mg PO DIRECTED PRN PRN Reason: migraines tiZANidine [Zanaflex] 4 mg PO TID PRN PRN Reason: Spasms Discharge Medication List Aspirin EC [Ecotrin Low Dose] 81 mg PO DAILY 11/22/17 [History] Colchicine [Colcrys] 0.6 mg PO Q12H PRN 11/22/17 [History] DULoxetine HCL [Cymbalta] 30 mg PO DAILY 11/22/17 [History] Dicyclomine HCl 10 mg PO TID 11/22/17 [History] Evolocumab [Repatha Sureclick] 140 mg SQ Q14D 11/22/17 [History] Pantoprazole Sodium 40 mg PO DAILY 11/22/17 [History] Promethazine [Phenergan] 12.5 mg PO TID PRN 11/22/17 [History] metFORMIN HCL ER [Glucophage Xr] 500 mg PO BID 11/22/17 [History] Baclofen [Lioresal] 10 mg PO TID PRN 11/03/18 [History] Clopidogrel [Plavix] 75 mg PO DAILY 11/03/18 [History] Fexofenadine HCl [Vidhya Allergy] 180 mg PO DAILY 11/03/18 [History] Isosorbide Mononitrate ER [Imdur] 30 mg PO BID 11/03/18 [History] Metoprolol Tartrate [Lopressor] 25 mg PO QAM 11/03/18 [History] Sertraline [Zoloft] 100 mg PO DAILY 11/03/18 [History] Tapentadol HCl [Nucynta] 50 mg PO TID PRN 11/03/18 [History] Topiramate [Topamax] 100 mg PO BID 11/03/18 [History] traZODone HCL 25 mg PO HS 11/03/18 [History] Losartan Potassium [Cozaar] 25 mg PO HS 12/15/18 [History] SUMAtriptan SUCCINATE [Imitrex] 50 mg PO DIRECTED PRN 12/15/18 [History] tiZANidine [Zanaflex] 4 mg PO TID PRN 12/15/18 [History] HYDROcodone/APAP 5-325MG [[place] 5] 1 each PO Q4HR PRN #42 tab 12/21/18 [Rx] Follow up Appointment(s)/Referral(s): Miguel Angel Buck, [Doctor of Osteopathic Medicine] - 01/06/19 3:15 pm Activity/Diet/Wound Care/Special Instructions: Keep site clean. May shower with waterproof Tegaderm intact. Do not soak in a tub. After 72 hours postoperatively, patient May remove dressing and then may shower with area uncovered. Leave Steri-Strips intact and allow them to fray off on their own. May ambulate as tolerated. Avoid heavy or rigorous activity. No repetitive bending twisting or lifting. No overhead work.
[2018-12-22] MEDS ORDERED: ASPIRIN 81 MG PO SCH (09:00)
[2018-12-22] MEDS ORDERED: CLOPIDOGREL 75 MG TAB PO SCH (09:00)
[2018-12-22] MEDS ORDERED: SERTRALINE 100 MG TAB PO SCH (09:00)
[2018-12-22] MEDS ORDERED: DULoxetine HCL 30 MG CAPSULE.DR PO SCH (09:00)
[2018-12-22] MEDS ORDERED: METOPROLOL TARTRATE 25 MG TAB PO SCH (09:00)
[2018-12-22] MEDS ORDERED: LORATADINE 10 MG TAB PO SCH (09:00)
[2018-12-22] MEDS: LACTATED RINGERS 1,000 ML IV SCH (10:50)
[2018-12-22 11:46] LABS: Glucose,Whole Blood 125 mg/dL (75-99)
[2019-01-03] MEDS ORDERED: EVOLOCUMAB 140 MG SQ SCH (09:00)
== END 2018-12-22 12:20 | disposition home or self-care (01) ==
LOC: OR 08:39 → 4SSUR 09:46 → OR 19:28
PROVIDERS: ADMIT Orthopaedic Surgery Orthopaedic Surgery of the Spine; ATTEND Orthopaedic Surgery Orthopaedic Surgery of the Spine
DX: M48.062 Spinal stenosis, lumbar region with neurogenic claudication (principal); M51.16 Intervertebral disc disorders with radiculopathy, lumbar region; M47.9 Spondylosis, unspecified; Z79.891 Long term (current) use of opiate analgesic; I25.10 Atherosclerotic heart disease of native coronary artery without angina pectoris; I25.2 Old myocardial infarction; I10 Essential (primary) hypertension; E78.5 Hyperlipidemia, unspecified; Z95.1 Presence of aortocoronary bypass graft; E11.9 Type 2 diabetes mellitus without complications; K21.9 Gastro-esophageal reflux disease without esophagitis; Z79.899 Other long term (current) drug therapy; Z79.82 Long term (current) use of aspirin; G43.909 Migraine, unspecified, not intractable, without status migrainosus; Z86.73 Personal history of transient ischemic attack (TIA), and cerebral infarction without residual deficits; H91.90 Unspecified hearing loss, unspecified ear; F32.9 Major depressive disorder, single episode, unspecified; F41.9 Anxiety disorder, unspecified; Z95.5 Presence of coronary angioplasty implant and graft; Z88.5 Allergy status to narcotic agent; Z88.2 Allergy status to sulfonamides; Z88.8 Allergy status to other drugs, medicaments and biological substances; Z82.49 Family history of ischemic heart disease and other diseases of the circulatory system; M43.16 Spondylolisthesis, lumbar region; M47.817 Spondylosis without myelopathy or radiculopathy, lumbosacral region; M51.36 Other intervertebral disc degeneration, lumbar region; M50.123 Cervical disc disorder at C6-C7 level with radiculopathy; Z79.84 Long term (current) use of oral hypoglycemic drugs; Z79.02 Long term (current) use of antithrombotics/antiplatelets
CPT/HCPCS: 63047; 63048; 97161; G0378 ×2; J2250; J1030; J2710; J0690 ×2; J2405; J2001; J3010; J1170 ×3; J0330; J2704

== ENCOUNTER 2019-02-14 19:45 | Inpatient (IN) | payer OTHER ==
[2019-02-14] MEDS ORDERED: NITROGLYCERIN OINT 1 INCH/GM PACKET TOPICAL STA (20:11)
[2019-02-14] MEDS ORDERED: ASPIRIN 81 MG PO STA (20:11)
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
[2019-02-14 20:34] LABS: Anisocytosis Slight; Basophils % (A) 0 %; Eosinophils # (A) 0.3 k/uL (0-0.7); Eosinophils % (A) 3 %; HCT 39.9 % (39.0-53.0); HGB 12.5 gm/dL (13.0-17.5); Hypochromasia Slight; Lymphocytes # (A) 2.5 k/uL (1.0-4.8); Lymphocytes % (A) 28 %; MCH 23.7 pg (25.0-35.0); MCHC 31.3 g/dL (31.0-37.0); MCV 75.8 fL (80.0-100.0); Mean Platelet Volume 7.4; Microcytosis Slight; Monocytes # (A) 0.5 k/uL (0-1.0); Monocytes % (A) 5 %; Neutrophils # (A) 5.5 k/uL (1.3-7.7); Neutrophils % (A) 61 %; Platelet Count 308 k/uL (150-450); RBC 5.26 m/uL (4.30-5.90); RDW 16.6 % (11.5-15.5); WBC 9.1 k/uL (3.8-10.6)
[2019-02-14] MEDS ORDERED: ONDANSETRON 4 MG/2 ML VIAL IVP STA (20:35)
[2019-02-14] MEDS ORDERED: NITROGLYCERIN-D5W PMX 50 MG in DEXTROSE/WATER 1 250ML.BAG IV ONE (20:35)
[2019-02-14 20:42] LABS: INR 0.9 (<1.2); Prothrombin Time 9.8 sec (9.0-12.0)
[2019-02-14 20:44] LABS: Albumin 4.2 g/dL (3.5-5.0); Calcium 9.6 mg/dL (8.4-10.2); Magnesium 1.8 mg/dL (1.6-2.3); Potassium 4.2 mmol/L (3.5-5.1); Total Bilirubin 0.5 mg/dL (0.2-1.3)
[2019-02-14] MEDS ORDERED: HEPARIN SODIUM,PORCINE 5,000 UNIT/ML 1 ML VIAL IV ONE (21:12)
[2019-02-14] MEDS ORDERED: HEPARIN SOD,PORK IN 0.45% NACL 25,000 UNIT in 0.45% NACL 1 250ML.BAG IV SCH (21:15)
--- NOTE | 2019-02-14 21:29 | XR ---
EXAMINATION TYPE: XR chest 2V DATE OF EXAM: 02/14/2019 COMPARISON: 11/03/2018 HISTORY: Shortness of breath TECHNIQUE: Frontal and lateral views of the chest are obtained. FINDINGS: Scattered senescent parenchymal changes noted. Hyperinflation compatible with COPD. No evidence for infiltrate. No evidence for atelectasis. Heart size is stable. Mediastinal structures are stable and grossly unremarkable. No evidence for hilar prominence. Degenerative changes dorsal spine. IMPRESSION: 1. No evidence for acute pulmonary disease.
[2019-02-14] MEDS ORDERED: NITROGLYCERIN SL TABS 0.4 MG TAB SUBLINGUAL PRN (21:42)
[2019-02-14 23:52] LABS: Glucose,Whole Blood 106 mg/dL (75-99)
[2019-02-15] MEDS: NITROGLYCERIN OINT 1 INCH/GM PACKET TOPICAL SCH ×2 (00:19→05:51)
[2019-02-15] MEDS ORDERED: COLCHICINE 0.6 MG EACH PO PRN (06:41)
[2019-02-15] MEDS ORDERED: PROMETHAZINE 25 MG TAB PO PRN (06:41)
[2019-02-15] MEDS ORDERED: traZODone HCL 50 MG TAB PO PRN (06:47)
[2019-02-15 06:53] LABS: Glucose,Whole Blood 94 mg/dL (75-99)
[2019-02-15] MEDS ORDERED: EVOLOCUMAB 140 MG SQ SCH (07:00)
[2019-02-15 07:33] LABS: Cholesterol 136 mg/dL (<200); HDL Cholesterol 39 mg/dL (40-60); LDL Cholesterol,Calculated 68 mg/dL (0-99); Triglycerides 143 mg/dL (<150)
[2019-02-15] MEDS: ACETAMINOPHEN TAB 325 MG TAB PO PRN (07:47)
[2019-02-15] MEDS: PANTOPRAZOLE 40 MG TABLET PO SCH (07:48)
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
[2019-02-15] MEDS: ASPIRIN 325 MG TAB PO SCH (09:02)
[2019-02-15] MEDS: CLOPIDOGREL 75 MG TAB PO SCH (09:03)
[2019-02-15] MEDS: TOPIRAMATE 100 MG TAB PO SCH ×2 (09:03→19:55)
[2019-02-15] MEDS: DULoxetine HCL 60 MG CAPSULE.DR PO SCH (09:03)
[2019-02-15] MEDS ORDERED: ATORVASTATIN 80 MG TAB PO STA (10:50)
[2019-02-15] MEDS ORDERED: SODIUM CHLORIDE 0.9% 1,000 ML in EMPTY BAG 1 BAG IV ONE (10:50)
[2019-02-15] MEDS ORDERED: ALPRAZolam 0.25 MG TAB PO PRN (10:50)
[2019-02-15] MEDS ORDERED: ASPIRIN 325 MG TAB PO STA (10:50)
[2019-02-15] MEDS ORDERED: NITROGLYCERIN SL TABS 0.4 MG TAB SUBLINGUAL PRN (10:50)
[2019-02-15 11:27] LABS: Glucose,Whole Blood 96 mg/dL (75-99)
[2019-02-15] MEDS ORDERED: LIDOCAINE 1% INJ 10MG/ML (20 ML MDV) ONE (11:45)
[2019-02-15] MEDS ORDERED: IV FLUID CONTINUATION 1,000 ML IV ONE (11:45)
[2019-02-15] MEDS ORDERED: MIDAZOLAM 2 MG/2 ML VIAL IV ONE (11:48)
[2019-02-15] MEDS ORDERED: LIDOCAINE 1% INJ 10MG/ML (20 ML MDV) SQ ONE (11:50)
--- NOTE | 2019-02-15 12:07 | CONS ---
CONSULTATION This patient's electronic medical records as well as the old charts were reviewed. The patient has a known history of coronary artery disease with a prior history of coronary artery bypass surgery and multiple stent placement. Please refer to the previous H and P for all the details. The patient was admitted in October of 2018 with chest pain. At that time, patient's cardiac enzymes were negative. He underwent a cardiac catheterization. At that time, no significant progression in the coronary artery disease was detected and patient was advised medical treatment. The patient started having chest discomfort yesterday prior to coming to the emergency room. The pain was in the substernal area, dull aching pain associated with some shortness of breath as well as nausea. The patient took some nitroglycerin which did not help much. The patient continued to feel some nausea and some chest discomfort. In view of that, the patient came to the emergency room and subsequently was admitted. Serial cardiac troponins are positive suggestive of non ST-segment elevation myocardial infarction. The patient currently is having mild chest discomfort. The patient has a history of multiple stents in the past. He had a couple of episodes of the near syncope in the last couple of months. He has a loop recorder placed in. No significant abnormality has been noted. HOME MEDICATIONS: Home medications include baby aspirin once a day, Colcrys, Cymbalta 60 mg daily, Repatha, dicyclomine, Phenergan, Plavix, Topamax, Zanaflex. PAST MEDICAL HISTORY: Past medical history includes history of gout, history of migraine, herniated disc, coronary artery bypass surgery and multiple stents, history of appendicectomy and cholecystectomy. PHYSICAL EXAMINATION: Physical examination at present reveals a 63-year-old gentleman who is lying comfortably in the bed. The patient's blood pressure is 140/89 mmHg. Head/ENT examination is negative. Neck is supple. There is no increase in jugular venous pressure. Both the carotid pulses are felt. There is no bruit. Chest is symmetrical. HEART: The PMI is not felt. First and second heart sounds are normal. Lungs are clinically clear to auscultation and percussion. Abdomen is soft. Liver and spleen are not enlarged. Bowel sounds are heard. EXTREMITIES: Peripheral pulsations are 2+. EKG shows normal sinus rhythm with possible inferior wall myocardial infarction and the right bundle branch block pattern. The repeat EKG does not show any significant changes. The patient's LDL level is 68. Patient's initial troponin was 0.014. Subsequent troponins are 0.086 and 0.130. Echocardiogram is being awaited. FINAL IMPRESSION: 1. This patient's history is suggestive of non ST-segment elevation myocardial infarction. 2. The patient has a history of coronary artery bypass surgery with a multiple stents. 3. History of hyperlipidemia. Patient cannot take any statin. RECOMMENDATIONS: In view of the abnormal cardiac enzymes, we will proceed with a cardiac catheterization for definitive diagnosis. Echo and Doppler study will be done. MMODL / IJN: [id number] /
[2019-02-15] MEDS ORDERED: IOPAMIDOL-370 125ML BTL INJ ONE (12:19)
--- NOTE | 2019-02-15 12:24 | ECHOF ---
Referral Reason:LV function; elevated troponins MEASUREMENTS -------- HEIGHT: 180.3 cm WEIGHT: 105.7 kg BP: RVIDd: 2.9 cm (< 3.3) IVSd: 1.4 cm (0.6 - 1.1) LVIDd: 4.0 cm (3.9 - 5.3) LVPWd: 1.4 cm (0.6 - 1.1) IVSs: 2.0 cm LVIDs: 2.6 cm LVPWs: 1.7 cm LAESV Index (A-L): 11.92 ml/m Ao Diam: 2.8 cm (2.0 - 3.7) AV Cusp: 1.8 cm (1.5 - 2.6) LA Diam: 3.6 cm (2.7 - 3.8) MV EXCURSION: 10.065 mm (> 18.000) MV EF SLOPE: 34 mm/s (70 - 150) EPSS: 0.6 cm MV E Michael: 0.95 m/s MV DecT: 230 ms MV A Michael: 0.82 m/s MV E/A Ratio: 1.15 AR PHT: 359 ms RAP: 5.00 mmHg RVSP: 17.25 mmHg FINDINGS -------- Sinus rhythm. This was a technically good study. The left ventricular size is normal. There is moderate concentric left ventricular hypertrophy. O verall left ventricular systolic function is normal with, an EF between 55 - 60 %. The right ventricle is normal in size. The left atrial size is normal. Normal LA size by volume 22+/-6 ml/m2. The right atrial size is normal. The aortic valve is trileaflet and appears structurally normal. Trace amount of aortic regurgitatio n. The mitral valve is normal. There is trace mitral regurgitation. The tricuspid valve appears structurally normal. Trace tricuspid regurgitation present. Right dani tricular systolic pressure is normal at < 35 mmHg. There is no pulmonic regurgitation present. The aortic root size is normal. Normal inferior vena cava with normal inspiratory collapse consistent with estimated right atrial pre ssure of 5 mmHg. There is no pericardial effusion. CONCLUSIONS -------- 1. Sinus rhythm. 2. This was a technically good study. 3. The left ventricular size is normal. 4. There is moderate concentric left ventricular hypertrophy. 5. Overall left ventricular systolic function is normal with, an EF between 55 - 60 %. 6. The right ventricle is normal in size. 7. The left atrial size is normal. 8. Normal LA size by volume 22+/-6 ml/m2. 9. The right atrial size is normal. 10. The aortic valve is trileaflet and appears structurally normal. 11. Trace amount of aortic regurgitation. 12. The mitral valve is normal. 13. There is trace mitral regurgitation. 14. The tricuspid valve appears structurally normal. 15. Trace tricuspid regurgitation present. 16. Right ventricular systolic pressure is normal at < 35 mmHg. 17. There is no pulmonic regurgitation present. 18. The aortic root size is normal. 19. Normal inferior vena cava with normal inspiratory collapse consistent with estimated right atrial pressure of 5 mmHg. 20. There is no pericardial effusion. DYE HOUSE VAT WORKER: Ksenia Ibarra RDCS
[2019-02-15] MEDS ORDERED: RX INFO: IV CONTRAST WAS GIVEN 1 EACH MISC MISCELLANE PRN (12:29)
--- NOTE | 2019-02-15 12:51 | CC ---
CARDIAC CATHETERIZATION REPORT INDICATION: Non ST-segment elevation [place]. FINDING: Non ST-segment elevation [place]. PROCEDURE NOTE: After obtaining informed consent, left heart catheterization and coronary angiogram were performed via the right femoral artery using standard Kuldeep catheters. The patient tolerated the procedure well without any obvious immediate complications. A femoral angiogram was performed and Angio-Seal was deployed for hemostasis. Patient received moderate conscious sedation. Total sedation time was 28 minutes. The venous graft to OM was engaged using a allyssa catheter. FINDINGS: 1. HEMODYNAMICS: Left ventricular end-diastolic pressure is 8 to 12 mm. There is no significant gradient across the aortic valve. 2. LEFT VENTRICULOGRAM: Left ventriculogram is not performed. 3. ANGIOGRAPHIC DATA: Left Main Coronary Artery: Left main coronary artery is a normal-sized vessel and is free of stenosis. Divides into left anterior descending coronary artery and circumflex coronary artery. LAD was previously stented in the proximal part that looks patent and there is competitive flow into the mid to distal LAD. Circumflex coronary artery has a long segment of stenting in the proximal to midportion that appears patent. The previously angioplastied ramus intermedius appears patent. The right coronary artery is chronically occluded in its midportion. SELECTIVE INJECTION OF THE BYPASS GRAFTS: ALBARRAN to LAD appears patent and proximal and distal anastomotic sites are free of significant disease. Venous graft to the right coronary artery is occluded. Venous graft to the OM branch appears patent. Both the proximal and distal anastomotic sites are free of significant disease. CONCLUSIONS: 1. [place] 3-vessel coronary artery disease with patent ALBARRAN to LAD and venous graft to OM, patent ramus intermedius, patent stents within the LAD and circumflex coronary artery. 2. Patent venous graft to the OM branch. 3. Occluded venous graft to the right coronary artery. 4. Patent ALBARRAN to LAD. PLAN: I reviewed angiographic data with Dr. Zuniga the on-call stained glass artist who performed his prior angioplasty and patient's management is going to be in the form of medical therapy. MMODL / IJN: [id number] /
[2019-02-15] MEDS: SODIUM CHLORIDE 0.9% 1,000 ML IV SCH (13:15)
[2019-02-15] MEDS ORDERED: amLODIPine 5 MG TAB PO STA (13:49)
[2019-02-15 17:19] LABS: Glucose,Whole Blood 136 mg/dL (75-99)
[2019-02-15] MEDS: ALPRAZolam 0.5 MG TAB PO PRN (17:25)
[2019-02-15] MEDS: HEPARIN SODIUM,PORCINE 5,000 UNIT/ML 1 ML VIAL SQ SCH (19:55)
[2019-02-15] MEDS ORDERED: LOSARTAN 25 MG TAB PO SCH (21:00)
[2019-02-15] MEDS ORDERED: LOSARTAN 25 MG TAB PO STA (22:28)
[2019-02-16] MEDS: SODIUM CHLORIDE 0.9% 1,000 ML IV SCH (01:41)
[2019-02-16 06:13] LABS: Calcium 9.3 mg/dL (8.4-10.2); Potassium 3.9 mmol/L (3.5-5.1)
[2019-02-16] MEDS: PANTOPRAZOLE 40 MG TABLET PO SCH (06:41)
[2019-02-16] MEDS: LOSARTAN 50 MG TAB PO SCH (08:03)
[2019-02-16] MEDS: TOPIRAMATE 100 MG TAB PO SCH ×2 (08:03→20:35)
[2019-02-16] MEDS: HEPARIN SODIUM,PORCINE 5,000 UNIT/ML 1 ML VIAL SQ SCH ×2 (08:03→20:34)
[2019-02-16] MEDS: CLOPIDOGREL 75 MG TAB PO SCH (08:03)
[2019-02-16] MEDS: ASPIRIN 325 MG TAB PO SCH (08:03)
[2019-02-16] MEDS: DULoxetine HCL 60 MG CAPSULE.DR PO SCH (08:03)
[2019-02-16] MEDS ORDERED: RANOLAZINE 500 MG TAB.ER.12H PO SCH (11:15)
[2019-02-16] MEDS ORDERED: METOPROLOL TARTRATE 25 MG TAB PO SCH (11:15)
[2019-02-16] MEDS ORDERED: ISOSORBIDE MONONITRATE ER 60 MG TAB.ER.24H PO SCH (11:15)
[2019-02-16] MEDS: ACETAMINOPHEN TAB 325 MG TAB PO PRN (11:25)
--- NOTE | 2019-02-16 11:35 | PN ---
PROGRESS NOTE Mr. Silva is a 63-year-old gentleman who was admitted with [id number] elevation myocardial infarction. Patient underwent cardiac catheterization yesterday. No significant progress in the coronary artery disease was detected. Most likely patient must have a plaque rupture. This was discussed with the patient. He still continues to have some mild chest discomfort. His heart rate is 96 per minute, blood pressure is 154/84 mmHg. First and second heart sounds are normal. Lungs are clear to auscultation and percussion. I discussed with the patient. He cannot take any kind of statin or Zetia. We will continue to Repatha. I am starting the patient on Lopressor 25 mg t.i.d., Ranexa 500 mg b.i.d., and Imdur 60 mg daily. Patient will be ambulated. MMODL / IJN: [id number] /
[2019-02-16] MEDS: METOPROLOL TARTRATE 25 MG TAB PO SCH ×2 (12:00→20:35)
--- NOTE | 2019-02-16 12:19 | P.PN ---
Subjective This is a pleasant 63 years old male with past medical history of coronary artery disease status post CABG and stent placement 6, diabetes mellitus, hypertension, hyperlipidemia, CVA/TIA, GERD, osteoarthritis, sleep apnea on CPAP/BiPAP, gout, migraine, herniated disc with sciatica, hiatal hernia, chronic diarrhea. Patient is status post recent cardiac cath on 11/25/2018 showing triple vessel coronary artery disease with patent ALBARRAN graft to LAD and saphenous graft to OM but occluded venous graft to right coronary artery. Presents because of chest pain of one-day duration that started around 4 PM yesterday, pain was not resolved by nitro patch within an hour or so started decided to come to emergency room. His chest pain is centrally radiating to both arms and chin, he had chest pain on the same side when he had a heart attack previously. Currently the chest pain was felt like burning, 10/10 in severity, currently is 7-8/10 in severity. Associated with little dyspnea and some nausea but no vomiting no sweating Vitas looks stable. Recent echo showing ejection fraction 55-60% with moderate concentric left ventricular hypertrophy. With mild valvular heart disease. Labs reviewed with unremarkable CBC, INR, normal electrolytes, creatinine and liver enzymes. Elevated troponin at 0.08. EKG showing normal sinus rhythm at 84 with right bundle-branch block and QTC of 472. Chest x-ray: No acute process Patient was started on heparin drip 02/16/2019 Patient seen and examined in the ICU. He is doing well, he had some chest pain earlier this morning which has responded to medical therapy. The conduit today patient tolerated walking with physical therapy with no exertional chest pain or dyspnea. His cardiac cath shows patent ALBARRAN. Tele Marketing Executive recommended to continue with medical therapy and he adjusted his medication. As per cardiology recommendation, Aspirin and Plavix were discontinued and he was started on ef fient. Also keep the patient overnight for monitoring with possible discharge in the morning sa per Tele Marketing Executive Other than the vitals and labs are reviewed and they look Stable. Sugar is controlled while off metformin Review of system: CONSTITUTIONAL: No fever, no malaise, no fatigue. HEENT: No recent visual problems or hearing problems. Denied any sore throat. CARDIOVASCULAR: No orthopnea, PND, no palpitations, no syncope. PULMONARY: No shortness of breath, no cough, no hemoptysis. GASTROINTESTINAL: No diarrhea, no nausea, no vomiting, no abdominal pain. Normoactive bowel sounds. NEUROLOGICAL: No headaches, no weakness, no numbness. HEMATOLOGICAL: Denies any bleeding or petechiae. GENITOURINARY: Denies any burning micturition, frequency, or urgency. MUSCULOSKELETAL/RHEUMATOLOGICAL: Denies any joint pain, swelling, or any muscle pain. ENDOCRINE: Denies any polyuria or polydipsia. Active Medications Generic Name Dose Route Start Last Admin Trade Name Freq PRN Reason Stop Dose Admin Acetaminophen 650 mg 02/15/19 07:34 02/16/19 11:25 Tylenol Tab PO 650 mg Q4HR PRN Administration Fever and/ or Mild Pain Alprazolam 0.25 mg 02/15/19 10:50 02/16/19 11:26 Xanax PO 0.25 mg Q6HR PRN Administration Mild Anxiety Alprazolam 0.5 mg 02/15/19 10:50 02/15/19 17:25 Xanax PO 0.5 mg Q6HR PRN Administration Moderate Anxiety Aspirin 325 mg 02/15/19 09:00 02/16/19 08:03 Aspirin PO 325 mg DAILY COTY Administration Colchicine 0.6 mg 02/15/19 06:41 Colcrys PO Q12H PRN GOUT Duloxetine HCl 60 mg 02/15/19 09:00 02/16/19 08:03 Cymbalta PO 60 mg DAILY COTY Administration Heparin Sodium (Porcine) 5,000 unit 02/15/19 21:00 02/16/19 08:03 Heparin SQ 5,000 unit Q12HR COTY Administration Losartan Potassium 50 mg 02/16/19 09:00 02/16/19 08:03 Cozaar PO 50 mg DAILY COTY Administration Metoprolol Tartrate 25 mg 02/16/19 11:45 02/16/19 12:00 Lopressor PO 25 mg BID COTY Administration Miscellaneous Information 1 each 02/15/19 12:29 Rx Info: Iv Contrast Was Given MISCELLANE 02/17/19 12:30 DAILY PRN Per Protocol Nitroglycerin 0.4 mg 02/15/19 10:50 Nitrostat SUBLINGUAL Q5M PRN Chest Pain Non-Formulary Medication 140 mg 02/15/19 07:00 02/15/19 07:44 Evolocumab [Repatha Sureclick] SQ Not Given Q14D COTY Pantoprazole Sodium 40 mg 02/15/19 07:30 02/16/19 06:41 Protonix PO 40 mg [id number] COTY Administration Prasugrel 10 mg 02/17/19 09:00 Effient PO DAILY COTY Promethazine HCl 12.5 mg 02/15/19 06:41 Phenergan PO TID PRN Nausea And Vomiting Ranolazine 500 mg 02/16/19 11:15 02/16/19 12:00 Ranexa PO 500 mg Q12HR COTY Administration Topiramate 100 mg 02/15/19 09:00 02/16/19 08:03 Topamax PO 100 mg BID COTY Administration Trazodone HCl 25 mg 02/15/19 06:47 Desyrel PO HS PRN Insomnia Objective - Vital Signs Vital signs: Vital Signs Temp 98.1 F 02/16/19 08:00 Pulse 85 02/16/19 12:00 Resp 24 02/16/19 12:00 BP 147/96 02/16/19 12:00 Pulse Ox 93 L 02/16/19 12:00 Intake & Output 02/15/19 02/16/19 02/16/19 18:59 06:59 18:59 Intake Total 561 250 350 Output Total 1125 940 700 Balance -564 -690 -350 Weight 108.2 kg Intake: IV 525 150 Sodium Chloride 0.9% 1, 375 150 000 ml @ 75 mls/hr IV . [id number] COTY Rx#:[id number] Intake, IV Titration 36 Amount Nitroglycerin-D5w Pmx 50 36 mg In Dextrose/Water 1 250ml.bag @ 5 MCG/MIN 1.5 mls/hr IV .Q24H ONE Rx#: [id number] Oral 100 350 Output: Urine 1125 940 700 Other: # Voids 1 - Exam GENERAL: The patient is alert and oriented x3, not in any acute distress. Well developed, well nourished. HEENT: Pupils are round and equally reacting to light. EOMI. No scleral icterus. No conjunctival pallor. Normocephalic, atraumatic. No pharyngeal erythema. No thyromegaly. CARDIOVASCULAR: S1 and S2 present. No murmurs, rubs, or gallops. PULMONARY: Chest is clear to auscultation, no wheezing or crackles. ABDOMEN: Soft, nontender, nondistended, normoactive bowel sounds. No palpable organomegaly. MUSCULOSKELETAL: No joint swelling or deformity. EXTREMITIES: No cyanosis, clubbing, or pedal edema. NEUROLOGICAL: Gross neurological examination did not reveal any focal deficits. SKIN: No rashes. No petechiae - Labs CBC & Chem 7: 02/14/19 18:00 02/16/19 04:49 Labs: Abnormal Lab Results - Last 24 Hours (Table) 02/15/19 02/16/19 Range/Units 17:08 04:49 Chloride 111 H (98-107) mmol/L Glucose 132 H (74-99) mg/dL POC Glucose (mg/dL) 136 H (75-99) mg/dL Assessment and Plan Assessment: -Mostly non-STEMI, with history of coronary artery disease status post CABG and stent placement 6, status post recent cardiac cath on 11/25/2018 showing triple vessel coronary artery disease with patent ALBARRAN graft to LAD and saphenous graft to OM but occluded venous graft to right coronary artery. Ejection fraction 55- 60% -Diabetes mellitus -Hypertension -Hyperlipidemia -history of back surgery about [address] boston -History of CVA/TIA -GERD -Primary osteoarthritis -Chronic -History of migraine -History of herniated disc with sciatica -Sleep apnea on CPAP/BiPAP -Chronic diarrhea post gallbladder surgery -History of depression/anxiety. Multivitamin active issue Plan: This is a pleasant 63 years old male who presents with non-STEMI, follow-up recommendation by cardiology team, Aspirin and Plavix were discontinued and he was started on effient. Hold metformin, place patient on insulin sliding scale. Hold Imitrex due to his heart disease, continue with Topamax. Pain management. Labs and medication were reviewed.. Continue same treatment. Continue with symptomatic treatment. Resume home medication. Monitor lytes and vitals. DVT and GI prophylaxis. Further recommendations of the clinical course of the patient DVT prophylaxis: heparin GI Prophylaxis: Protonix Prognosis is guarded
[2019-02-16] MEDS: ALPRAZolam 0.5 MG TAB PO PRN (20:44)
[2019-02-17 06:13] LABS: Glucose,Whole Blood 102 mg/dL (75-99)
[2019-02-17] MEDS: INSULIN ASPART (NovoLOG) 100 UNIT/ML VIAL SQ SCH ×2 (06:18→12:04)
[2019-02-17] MEDS: PANTOPRAZOLE 40 MG TABLET PO SCH (06:20)
[2019-02-17 07:01] LABS: Calcium 9.4 mg/dL (8.4-10.2); Potassium 3.9 mmol/L (3.5-5.1)
[2019-02-17 08:28] VITALS: RESP 20; TEMP 97.5
[2019-02-17] MEDS ORDERED: PRASUGREL 10 MG TAB PO SCH (09:00)
[2019-02-17] MEDS: METOPROLOL TARTRATE 25 MG TAB PO SCH (09:48)
[2019-02-17] MEDS: LOSARTAN 50 MG TAB PO SCH (09:48)
[2019-02-17] MEDS: ASPIRIN 325 MG TAB PO SCH (09:48)
[2019-02-17] MEDS: TOPIRAMATE 100 MG TAB PO SCH (09:48)
[2019-02-17] MEDS: DULoxetine HCL 60 MG CAPSULE.DR PO SCH (09:48)
[2019-02-17] MEDS: HEPARIN SODIUM,PORCINE 5,000 UNIT/ML 1 ML VIAL SQ SCH (09:49)
--- NOTE | 2019-02-17 11:46 | P.DS ---
Providers Date of admission: 02/14/19 21:44 Attending physician: Chiquis Naranjo Consults: 02/14/19 21:42 Consult Physician Urgent Consulting Provider: [facility] Consult Reason/Comments: Unstable angina Do you want consulting provider notified?: Yes Primary care physician: Nicolasa Enriquez Hospital Course: Diagnoses: -non-STEMI, with history of coronary artery disease status post CABG and stent placement 6, status post recent cardiac cath on 11/25/2018 showing triple vessel coronary artery disease with patent ALBARRAN graft to LAD and saphenous graft to OM but occluded venous graft to right coronary artery. Ejection fraction 55- 60%. Schedule Planning Manager recommended continue with optimizing medical therapy -Diabetes mellitus -Hypertension -Hyperlipidemia -history of back surgery about [address] boston -History of CVA/TIA -GERD -Primary osteoarthritis -Chronic -History of migraine -History of herniated disc with sciatica -Sleep apnea on CPAP/BiPAP -Chronic diarrhea post gallbladder surgery -History of depression/anxiety. Multivitamin active issue Hospital course: This is a pleasant 63 years old male with past medical history of coronary artery disease status post CABG and stent placement 6, diabetes mellitus, hypertension, hyperlipidemia, CVA/TIA, GERD, osteoarthritis, sleep apnea on CPAP/BiPAP, gout, migraine, herniated disc with sciatica, hiatal hernia, chronic diarrhea. Patient is status post recent cardiac cath on 11/25/2018 showing triple vessel coronary artery disease with patent ALBARRAN graft to LAD and saphenous graft to OM but occluded venous graft to right coronary artery. Presents because of chest pain of one-day duration that started, pain was not resolved by nitro patch within an hour or so started decided to come to emergency room. Cardiology team switch Plavix to Effient. His chest pain started improving with medical therapy and on the day of discharge he was chest pain free leg 0/10 in severity even with exertion palpitations since the Xanax helps him too. no other symptoms. He denies dyspnea. No change in urine or polyps. No nausea vomiting. No fever.Vitals stable, creatinine and labs remain stable. Glucose is controlled. Eventually patient was cleared for discharge by cardiology team. Patient was eager to go home. Problems and management plan were discussed with the patient and he verbalized understanding and acceptance Patient was found stable and can be discharged home however he needs follow-up as an outpatient. Patient was instructed to follow up with PCP within one week and patient agrees. The patient agrees with the appointments made for him with PCP and stretcher leveler operator helper and the timing and states he is going to follow-up. Gen: patient is a AAOx3, no distress CVS: S1-S2, RRR, no murmur Lungs: B/L CTA, no wheezing Abdomen: soft, no distention, no tenderness, positive bowel sounds Extremity: no leg edema or induration Time spent more than 35 minutes Plan - Discharge Summary New Discharge Prescriptions: No Action Promethazine [Phenergan] 12.5 mg PO TID PRN PRN Reason: Nausea And Vomiting DULoxetine HCL [Cymbalta] 60 mg PO DAILY Aspirin EC [Ecotrin Low Dose] 81 mg PO DAILY Evolocumab [Repatha Sureclick] 140 mg SQ Q14D Pantoprazole Sodium 40 mg PO DAILY Colchicine [Colcrys] 0.6 mg PO Q12H PRN PRN Reason: GOUT metFORMIN HCL ER [Glucophage Xr] 500 mg PO BID Dicyclomine HCl 10 mg PO TID Clopidogrel [Plavix] 75 mg PO DAILY traZODone HCL 25 mg PO HS Topiramate [Topamax] 100 mg PO BID Losartan Potassium [Cozaar] 25 mg PO HS SUMAtriptan SUCCINATE [Imitrex] 50 mg PO DAILY PRN PRN Reason: migraines tiZANidine [Zanaflex] 2 mg PO TID PRN PRN Reason: Spasms HYDROcodone/APAP 5-325MG [[place] 5] 1 tab PO Q4HR PRN PRN Reason: Pain traMADol HCL 50 mg PO DAILY PRN PRN Reason: Pain Discharge Medication List Aspirin EC [Ecotrin Low Dose] 81 mg PO DAILY 11/22/17 [History] Colchicine [Colcrys] 0.6 mg PO Q12H PRN 11/22/17 [History] DULoxetine HCL [Cymbalta] 60 mg PO DAILY 11/22/17 [History] Dicyclomine HCl 10 mg PO TID 11/22/17 [History] Evolocumab [Repatha Sureclick] 140 mg SQ Q14D 11/22/17 [History] Pantoprazole Sodium 40 mg PO DAILY 11/22/17 [History] Promethazine [Phenergan] 12.5 mg PO TID PRN 11/22/17 [History] metFORMIN HCL ER [Glucophage Xr] 500 mg PO BID 11/22/17 [History] Clopidogrel [Plavix] 75 mg PO DAILY 11/03/18 [History] Topiramate [Topamax] 100 mg PO BID 11/03/18 [History] traZODone HCL 25 mg PO HS 11/03/18 [History] Losartan Potassium [Cozaar] 25 mg PO HS 12/15/18 [History] SUMAtriptan SUCCINATE [Imitrex] 50 mg PO DAILY PRN 12/15/18 [History] tiZANidine [Zanaflex] 2 mg PO TID PRN 12/15/18 [History] HYDROcodone/APAP 5-325MG [[place] 5] 1 tab PO Q4HR PRN 02/14/19 [History] traMADol HCL 50 mg PO DAILY PRN 02/14/19 [History] Follow up Appointment(s)/Referral(s): Grant Kincaid MD [STAFF PHYSICIAN] - 02/22/19 3:00 pm Nicolasa Enriquez DO [Primary Care Provider] - 02/20/19 10:40 am Patient Instructions/Handouts: *Surgery [facility] - After Heart Catheterization - Undraped Artist Model Instructions, Heart Healthy Diet (DC) Activity/Diet/Wound Care/Special Instructions: RX delivery
[2019-02-17 11:57] LABS: Glucose,Whole Blood 122 mg/dL (75-99)
--- NOTE | 2019-02-17 12:14 | PN ---
PROGRESS NOTE This patient was admitted with non-Q-wave myocardial infarction. He is doing better, denies any chest pain, denies any shortness of breath. Patient was explained about that he needs to be on a small dose of Lopressor because he had quite tachycardia. Patient can be discharged home today on Effient and baby aspirin. MMODL / MARIXAN: [id number] /
[2019-02-17 13:32] VITALS: BP 149/82; PULSE 71
[2019-02-18] MEDS ORDERED: ASPIRIN 81 MG PO SCH (09:00)
== END 2019-02-17 13:37 | disposition home or self-care (01) | DRG 281 ==
LOC: EC 19:45 → 3SCARD 21:44 → 2SICU 23:18 → 3SCARD 02-16 22:07
PROVIDERS: ADMIT Hospitalist; ATTEND Hospitalist
PROC: B2121ZZ Fluoroscopy of Single Coronary Artery Bypass Graft using Low Osmolar Contrast (ICD-10-PCS; principal; 2019-02-15 12:30)
PROC: 4A023N7 Measurement of Cardiac Sampling and Pressure, Left Heart, Percutaneous Approach (ICD-10-PCS; principal; 2019-02-15 12:30)
PROC: B2111ZZ Fluoroscopy of Multiple Coronary Arteries using Low Osmolar Contrast (ICD-10-PCS; principal; 2019-02-15 12:30)
DX: I21.4 Non-ST elevation (NSTEMI) myocardial infarction (principal); I25.810 Atherosclerosis of coronary artery bypass graft(s) without angina pectoris; E11.9 Type 2 diabetes mellitus without complications; E78.5 Hyperlipidemia, unspecified; F32.9 Major depressive disorder, single episode, unspecified; F41.9 Anxiety disorder, unspecified; G47.30 Sleep apnea, unspecified; I10 Essential (primary) hypertension; I25.110 Atherosclerotic heart disease of native coronary artery with unstable angina pectoris; I25.2 Old myocardial infarction; I45.10 Unspecified right bundle-branch block; K21.9 Gastro-esophageal reflux disease without esophagitis; M19.91 Primary osteoarthritis, unspecified site; Z79.02 Long term (current) use of antithrombotics/antiplatelets; Z79.82 Long term (current) use of aspirin; Z79.84 Long term (current) use of oral hypoglycemic drugs; Z79.899 Other long term (current) drug therapy; Z82.49 Family history of ischemic heart disease and other diseases of the circulatory system; Z83.3 Family history of diabetes mellitus; Z86.73 Personal history of transient ischemic attack (TIA), and cerebral infarction without residual deficits; Z95.1 Presence of aortocoronary bypass graft; Z95.5 Presence of coronary angioplasty implant and graft; Z88.2 Allergy status to sulfonamides; Z88.8 Allergy status to other drugs, medicaments and biological substances; Z90.49 Acquired absence of other specified parts of digestive tract; Z99.89 Dependence on other enabling machines and devices; R19.7 Diarrhea, unspecified
CPT/HCPCS: 36415; 71046; 80048; 80053; 80061; 83735; 84484; 85025; 85610; 85730; 93005; 93306; 93458; 96365; 96366; 96368; 96375; 96376; 99291

== ENCOUNTER → 2019-04-17 | Outpatient (CLI) | payer OTHER ==
[2019-04-17 15:00] LABS: HCT 44.9 % (39.0-53.0); HGB 13.5 gm/dL (13.0-17.5); Hypochromasia Moderate; MCH 24.1 pg (25.0-35.0); MCHC 30.1 g/dL (31.0-37.0); Mean Platelet Volume 6.9; Platelet Count 311 k/uL (150-450); RBC 5.61 m/uL (4.30-5.90); RDW 15.8 % (11.5-15.5); WBC 7.4 k/uL (3.8-10.6)
[2019-04-17 15:07] LABS: Potassium 4.6 mmol/L (3.5-5.1)
== END | disposition home or self-care (01) ==
LOC: LABPAT 12:38
PROVIDERS: ATTEND Internal Medicine Clinical Cardiac Electrophysiology
DX: Z01.812 Encounter for preprocedural laboratory examination (principal); I49.5 Sick sinus syndrome; I25.10 Atherosclerotic heart disease of native coronary artery without angina pectoris
CPT/HCPCS: 80051; 82565; 82947; 84520; 85027

== ENCOUNTER 2019-04-18 13:33 | Observation (INO) | payer OTHER ==
[2019-04-18] MEDS ORDERED: SODIUM CHLORIDE 0.9% 1,000 ML IV STA ×2 (13:56)
[2019-04-18] MEDS ORDERED: MORPHINE SULFATE 2 MG/ML SYRINGE IVP STA (13:56)
[2019-04-18] MEDS ORDERED: HEPARIN SODIUM,PORCINE 5,000 UNIT/ML 1 ML VIAL IV STA (13:56)
[2019-04-18] MEDS ORDERED: HEPARIN SOD,PORK IN 0.45% NACL 25,000 UNIT in 0.45% NACL 1 250ML.BAG IV SCH (14:00)
[2019-04-18 14:31] LABS: Basophils # (A) 0.1 k/uL (0-0.2); Basophils % (A) 1 %; Eosinophils # (A) 0.2 k/uL (0-0.7); Eosinophils % (A) 3 %; HCT 41.4 % (39.0-53.0); HGB 13.1 gm/dL (13.0-17.5); Hypochromasia Moderate; Lymphocytes # (A) 1.7 k/uL (1.0-4.8); Lymphocytes % (A) 26 %; MCH 25.1 pg (25.0-35.0); MCHC 31.7 g/dL (31.0-37.0); MCV 79.3 fL (80.0-100.0); Mean Platelet Volume 8.2; Monocytes # (A) 0.3 k/uL (0-1.0); Monocytes % (A) 5 %; Neutrophils % (A) 63 %; Platelet Count 294 k/uL (150-450); RBC 5.22 m/uL (4.30-5.90); RDW 15.7 % (11.5-15.5); WBC 6.4 k/uL (3.8-10.6)
[2019-04-18] MEDS ORDERED: ONDANSETRON 4 MG/2 ML VIAL IVP STA (14:34)
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
[2019-04-18 15:03] LABS: Partial Thromboplastin Time 23.6 sec (22.0-30.0); Prothrombin Time 10.3 sec (9.0-12.0)
--- NOTE | 2019-04-18 15:10 | XR ---
EXAMINATION TYPE: XR chest 2V DATE OF EXAM: 04/18/2019 COMPARISON: 02/14/2019 HISTORY: Shortness of breath TECHNIQUE: Frontal and lateral views of the chest are obtained. FINDINGS: Scattered senescent parenchymal changes noted. Hyperinflation compatible with COPD. No evidence for infiltrate. No evidence for atelectasis. Heart size is stable. Mediastinal structures are stable and grossly unremarkable. No evidence for hilar prominence. Degenerative changes dorsal spine. IMPRESSION: 1. No evidence for acute pulmonary disease.
[2019-04-18] MEDS ORDERED: MORPHINE SULFATE 4 MG/ML SYRINGE IVP STA (15:29)
[2019-04-18] MEDS ORDERED: NITROGLYCERIN SL TABS 0.4 MG TAB SUBLINGUAL PRN (16:07)
[2019-04-18 16:10] LABS: Albumin 3.8 g/dL (3.5-5.0); Calcium 8.8 mg/dL (8.4-10.2); Potassium 4.6 mmol/L (3.5-5.1); Total Bilirubin 0.4 mg/dL (0.2-1.3); Total Protein 6.5 g/dL (6.3-8.2)
[2019-04-18] MEDS ORDERED: TAPENTADOL HCL 50 MG PO PRN (17:17)
[2019-04-18] MEDS ORDERED: SUMAtriptan SUCCINATE 50 MG TAB PO PRN (17:17)
[2019-04-18] MEDS ORDERED: DICYCLOMINE 10 MG CAP PO PRN (17:17)
[2019-04-18] MEDS ORDERED: COLCHICINE 0.6 MG EACH PO PRN (17:17)
[2019-04-18] MEDS ORDERED: ALPRAZolam 0.5 MG TAB PO PRN (17:17)
[2019-04-18] MEDS ORDERED: PROMETHAZINE 25 MG TAB PO PRN (17:17)
[2019-04-18] MEDS ORDERED: TEMAZEPAM 15 MG CAP PO PRN (17:18)
[2019-04-18] MEDS ORDERED: HYDROcodone/APAP 5-325MG 1 EACH TAB PO PRN (17:18)
[2019-04-18] MEDS ORDERED: EVOLOCUMAB 140 MG SQ SCH (17:30)
--- NOTE | 2019-04-18 19:15 | HP ---
HISTORY AND PHYSICAL DATE OF SERVICE: 04/18/2019. CHIEF COMPLAINT: Chest pain. HISTORY OF PRESENT ILLNESS: This 63-year-old gentleman who has a past medical history of multiple medical problems, including CAD, CABG, multiple stents, multiple myocardial infarctions, diabetes mellitus, hypertension, hyperlipidemia, history of DJD, being followed by Dr. Enriquez in the outpatient setting, was previously admitted with chest pain in February. The patient had acute kci-QK-umtokdg-elevation myocardial infarction at that time. The patient had cardiac catheterization in November showing triple-vessel coronary artery disease with patent ALBARRAN graft to LAD, SVG to OM and occluded venous graft to RCA, ejection fraction 55% to 60%. Cardiology continued to optimize medical treatment at that time. The patient also has complaints of weakness and tiredness. Patient also had a loop recorder in place. The heart rate is now going down, up to 20, and pacemaker is being planned as an outpatient next week by Dr. Kincaid at this time. Currently the patient had a heavy feeling in the anterior part of chest, like an elephant sitting on the chest. Patient came to [facility] and was admitted for further evaluation and treatment. There is no history of radiation of pain elsewhere. No associated symptoms. Troponins were found to be 0.025. NT-proBNP is only 33. The patient was admitted for further evaluation and treatment. EKG shows right bundle branch block with a left axis deviation and ST-T changes and chest x-ray showed no evidence of acute pulmonary features. There is no history of any fever, rigor or chills. No history of headache, loss of consciousness, seizures. The patient was apparently evaluated at [facility], where they were advised to take Plavix instead of Effient. PAST MEDICAL HISTORY: History of CAD, history of CABG, stents, history of multiple myocardial infarctions, history of recent cardiac distention, as mentioned earlier, history of diabetes mellitus, GERD, hypertension, hyperlipidemia, history of gout. HOME MEDICATIONS: Home medications are at this time reviewed and include: 1. Trazodone 25 mg at bedtime. 2. Metformin 500 mg p.o. b.i.d. 3. Topamax 100 mg p.o. b.i.d. 4. Nucynta 550 mg p.o. q.8 p.r.n. 5. Imitrex 50 mg p.o. b.i.d. p.r.n. 6. Promethazine 12.5 mg p.o. t.i.d. p.r.n. 7. Protonix 40 mg p.o. daily. 8. Nitrostat 0.4 sublingually p.r.n. 9. Lopressor 25 mg p.o. b.i.d. 10.Cozaar 50 mg p.o. daily. 11.Vidhya 180 mg p.o. daily. 12.Repatha 140 mg subcutaneously q.14 days. 13.Dicyclomine 10 mg p.o. t.i.d. p.r.n. 14.Cymbalta 120 mg p.o. daily. 15.Colcrys 0.6 p.o. b.i.d. p.r.n. 16.Plavix 75 mg p.o. daily. 17.Ecotrin 81 mg p.o. daily. 18.Zyloprim 100 mg p.o. daily. 19.Xanax 0.5 p.o. b.i.d. p.r.n. ALLERGIES: GLIPIZIDE and SULFA. FAMILY HISTORY: History of CVA, TIA, disorder, cataracts in the family. SOCIAL HISTORY: No history of smoking. Occasional alcohol intake. REVIEW OF SYSTEMS: ENT: No diminished hearing. No diminished vision. CARDIOVASCULAR SYSTEM: As mentioned earlier. RESPIRATORY SYSTEM: As mentioned earlier. GI: No nausea, vomiting. : No dysuria or retention. NERVOUS SYSTEM: No numbness, weakness. ALLERGY/IMMUNOLOGY: No asthma, hayfever. MUSCULOSKELETAL: As mentioned earlier. HEMATOLOGY/ONCOLOGY: No history of anemia. ENDOCRINE: No history of diabetes, hypothyroidism. CONSTITUTIONAL: As mentioned earlier. DERMATOLOGY: Negative. RHEUMATOLOGY: Negative. PSYCHIATRY: As mentioned earlier. PHYSICAL EXAMINATION: Patient alert and oriented x3. Pulse is 73, blood pressure 151/94, respirations 16, temperature normal, pulse ox 99% on room air. HEENT: Conjunctivae normal. NECK: No jugular venous distention. CARDIOVASCULAR SYSTEM: S1, S2 muffled. RESPIRATORY SYSTEM: Breath sounds diminished at the bases. No rhonchi. No crackles. ABDOMEN: Soft, obese, non-tender. No mass palpable. LEGS: No edema. No swelling. NERVOUS SYSTEM: Higher functions as mentioned earlier. Moves all 4 limbs. No focal motor or sensory deficit. LYMPHATICS: No lymph node palpable in neck, axillae or groin. SKIN: No ulcer, rash, bleeding. JOINTS: No active deforming arthropathy. LABS: WBC 6.2, hemoglobin 13.1. Otherwise, sodium 139, potassium 4.6. Glucose 109. ASSESSMENT: 1. Chest pain, possible unstable angina. 2. History of previous multiple myocardial infarctions. 3. History of recent cardiac catheterization showing some occluded grafts. 4. History of coronary artery disease, coronary artery bypass grafting, stent. 5. Cerebrovascular accident/transient ischemic attack history. 6. Diabetes mellitus, type 2. 7. Gastroesophageal reflux disease. 8. Hypertension. 9. Hyperlipidemia. 10.History of degenerative joint disease. 11.History of sleep apnea. 12.Gout. 13.History of migraines. 14.History of herniated disc. 15.History of transient ischemic attack. 16.History of sleep apnea. 17.History of appendectomy. 18.History of cholecystectomy. 19.History of degenerative joint disease. 20.Anxiety, depression. RECOMMENDATIONS AND DISCUSSION: In this 63-year-old gentleman who presented with multiple complex medical issues, we will monitor the patient closely, continue the current medications, continue with symptomatic treatment. Otherwise at this time I recommend unstable angina protocol, IV heparin. Closely monitor. Cardiology consultation. Will review the old records. Otherwise, prognosis guarded because of multiple complex medical issues. Further recommendations to follow. A copy of this dictation is being forwarded to Dr. Enriquez, who is the primary physician. Home medications will be continued also. MMODL / IJN: [id number] / [facility]OSPITALCheryl
[2019-04-18] MEDS: NITROGLYCERIN OINT 1 INCH/GM PACKET TOPICAL SCH ×2 (19:26→23:12)
[2019-04-18 20:39] LABS: Glucose,Whole Blood 86 mg/dL (75-99)
[2019-04-18] MEDS: TOPIRAMATE 100 MG TAB PO SCH (20:47)
[2019-04-18] MEDS: metFORMIN 500 MG TAB PO SCH (20:47)
[2019-04-18] MEDS ORDERED: traZODone HCL 50 MG TAB PO SCH (21:00)
[2019-04-18] MEDS ORDERED: METOPROLOL TARTRATE 25 MG TAB PO SCH (21:00)
[2019-04-19] MEDS: MORPHINE SULFATE 4 MG/ML SYRINGE IV PRN ×2 (01:47→10:09)
[2019-04-19] MEDS: NITROGLYCERIN OINT 1 INCH/GM PACKET TOPICAL SCH (04:51)
[2019-04-19 06:57] LABS: Glucose,Whole Blood 108 mg/dL (75-99)
[2019-04-19] MEDS ORDERED: PANTOPRAZOLE 40 MG TABLET PO SCH (07:30)
[2019-04-19 07:41] LABS: Basophils % (A) 0 %; Eosinophils # (A) 0.3 k/uL (0-0.7); Eosinophils % (A) 4 %; HCT 37.6 % (39.0-53.0); HGB 11.7 gm/dL (13.0-17.5); Hypochromasia Marked; Lymphocytes # (A) 2.5 k/uL (1.0-4.8); Lymphocytes % (A) 37 %; MCH 25.4 pg (25.0-35.0); MCHC 31.2 g/dL (31.0-37.0); MCV 81.4 fL (80.0-100.0); Mean Platelet Volume 7.1; Monocytes # (A) 0.3 k/uL (0-1.0); Monocytes % (A) 4 %; Neutrophils # (A) 3.6 k/uL (1.3-7.7); Neutrophils % (A) 53 %; Platelet Count 288 k/uL (150-450); RBC 4.61 m/uL (4.30-5.90); RDW 15.5 % (11.5-15.5); WBC 6.9 k/uL (3.8-10.6)
[2019-04-19 07:44] LABS: D-Dimer 0.39 mg/L FEU (<0.60); Partial Thromboplastin Time 43.5 sec (22.0-30.0)
[2019-04-19 07:53] LABS: Calcium 8.6 mg/dL (8.4-10.2); Potassium 4.7 mmol/L (3.5-5.1)
[2019-04-19] MEDS ORDERED: DULoxetine HCL 60 MG CAPSULE.DR PO SCH (09:00)
[2019-04-19] MEDS ORDERED: LOSARTAN 50 MG TAB PO SCH (09:00)
[2019-04-19] MEDS ORDERED: ASPIRIN 81 MG PO SCH (09:00)
[2019-04-19] MEDS ORDERED: LORATADINE 10 MG TAB PO SCH (09:00)
[2019-04-19] MEDS ORDERED: CLOPIDOGREL 75 MG TAB PO SCH (09:00)
[2019-04-19] MEDS ORDERED: ASPIRIN 325 MG TAB PO SCH (09:00)
[2019-04-19] MEDS ORDERED: ALLOPURINOL 100 MG TAB PO SCH (09:00)
--- NOTE | 2019-04-19 09:45 | CONS ---
CONSULTATION Domingo Silva is a 63-year-old gentleman who sees Dr. Kincaid in the outpatient setting and apparently has a loop recorder and is being considered for a pacemaker next week electively. He carries a diagnosis of CAD, previous bypass surgery and PCI. As recently as February of 2019, this gentleman underwent a cardiac catheterization performed by Dr. Sandoval. This study revealed that there was a pokagon triple-vessel disease with a patent ALBARRAN to LAD and vein graft to the obtuse marginal. Ramus intermedius was patent within the LAD. The stents were patent. The circumflex artery stents were also patent. The angiogram was reviewed by Dr. Zuniga who felt medical therapy was the best approach. He came into the hospital and he felt that there was an elephant sitting on the chest. Then he had some sharp pains. The ext question is he thinks he should have a pacemaker now rather than wait until next week. However, no further chest pain. Three sets of troponins suggest very flat numbers and no clear-cut evidence to suggest any myocardial injury. The patient is resting comfortably without symptoms. EKG does not reveal any significant changes that are new. He has a sinus mechanism with a right bundle branch block pattern. PAST MEDICAL HISTORY: 1. CAD, previous bypass surgery and PCI. 2. History of sick sinus syndrome, being considered for a pacemaker. 3. Hypertension. 4. Hypercholesterolemia. 5. Patient also has diabetes. MEDICATIONS: Medications at home include metformin. He takes metoprolol tartrate 25 mg b.i.d., Cozaar 50 mg daily, Plavix, aspirin, and he has not taken any statin medications in the past. Apparently, he has stopped them on his own. PHYSICAL EXAMINATION: On examination, blood pressure is 118/70, pulse rate is 64 per minute regular. HEENT: Unremarkable. Fundus was not examined by me. Neck is supple. No JVD. I do not hear a carotid bruit. There is no thyromegaly. Heart exam reveals S1, S2 heard normally. No significant rub, murmur or gallop. Lungs are clear. Abdomen is soft, nontender. Lower extremities reveal normal pulses. No edema. Central nervous system is normal. EKG revealed sinus mechanism right bundle, no acute changes. LABORATORY DATA: Laboratory data revealed unremarkable troponins. IMPRESSION: 1. Atypical chest pain in a patient with recent cardiac cath in the last 2 months or so, which revealed patent vessels. 2. Hypertension. 3. Sick sinus syndrome, being scheduled for elective pacemaker. No bradycardia at this time. No symptoms related to this. RECOMMENDATION: I am recommending that we add atorvastatin 20 mg daily, increase activity and he can be discharged and come back and follow up with Dr. Kincaid with outpatient pacemaker that is set up for next week. No intervention necessary from a cardiac standpoint. Thank you very much for the consult. MMODL / IJN: [id number] /
[2019-04-19] MEDS: TOPIRAMATE 100 MG TAB PO SCH (10:07)
[2019-04-19] MEDS: metFORMIN 500 MG TAB PO SCH (10:07)
[2019-04-19 11:50] VITALS: RESP 18
[2019-04-19 12:05] LABS: Glucose,Whole Blood 121 mg/dL (75-99)
[2019-04-19 15:57] VITALS: BP 166/70; PULSE 97; TEMP 98.6
[2019-04-19 16:49] LABS: Glucose,Whole Blood 126 mg/dL (75-99)
--- NOTE | 2019-04-19 23:05 | DS ---
DISCHARGE SUMMARY DATE OF SERVICE: 04/19/2019 FINAL DIAGNOSES: 1. Chest pain possible unstable angina. Myocardial infarction ruled out. 2. History of previous multiple myocardial infarctions. 3. History of recent cardiac catheterization showing some occluded grafts on medical treatment. 4. History of coronary artery disease, coronary artery bypass grafting stent. 5. Cerebrovascular incident/transient ischemic attack history. 6. Diabetes type 2. 7. Gastroesophageal reflux disease. 8. Hypertension. 9. Hyperlipidemia. 10.History of degenerative joint disease. 11.History of sleep apnea. 12.Gout. 13.History of migraine. 14.History of herniated disc. 15.History of transient ischemic attack. 16.History of sleep apnea. 17.History of appendectomy. 18.History of cholecystectomy. 19.History of degenerative joint disease. 20.History of anxiety, depression. DISCHARGE DISPOSITION: The patient will be discharged in stable condition with guarded prognosis. Discharge cleared by Cardiology. HISTORY OF PRESENT ILLNESS: This 63-year-old gentleman with a past medical history of multiple medical problems was admitted with chest pain. The patient treated symptomatically. Myocardial infarction ruled out. Cardiology saw the patient and recommend to continue outpatient followup. The patient also awaiting pacemaker implantation by Dr. Kincaid from Cardiology next week. As mentioned earlier, Cardiology recommended discharge. The patient is able to ambulate without symptoms and please refer to Cardiology notes for further information. On exam, vitals are stable. Cardiovascular: S1, S2 muffled. ABDOMEN soft. Nervous system: No focal deficits. DISCHARGE ADVICE AND MEDICATIONS: 1. Diet is cardiac diet. 2. Activity limited until followup. 3. Follow up with Dr. Enriquez 2-3 days. 4. Follow up with Cardiology as recommended. DISCHARGE MEDICATIONS: 1. Vidhya 180 mg p.o. daily. 2. Colchicine 0.6 b.i.d. p.r.n. 3. Cymbalta 120 mg p.o. daily. 4. Dicyclomine 10 mg p.o. t.i.d. 5. Ecotrin 81 mg p.o. daily. 6. Metformin ER 500 mg p.o. b.i.d. 7. Imitrex 50 mg p.o. b.i.d. 8. Nucynta 50 mg q.8 p.r.n. 9. Protonix 40 mg p.o. daily. 10.Plavix 75 mg p.o. daily. 11.Promethazine 12.5 mg p.o. t.i.d. 12.Repatha 140 mg subcu q.14 days. 13.Topamax 100 mg p.o. b.i.d. 14.Trazodone 25 mg q.h.s. 15.Xanax 0.5 b.i.d. p.r.n. 16.Zyloprim 100 mg p.o. daily. 17.Cozaar 50 mg p.o. daily. 18.Imdur ER 30 mg p.o. daily. 19.Lipitor 20 mg p.o. daily. 20.Nitrostat 0.4 sublingual p.r.n. Once again, the patient being discharged in stable condition with guarded prognosis. MMODL / IJN: [id number] /
== END 2019-04-19 18:02 ==
LOC: EC 13:33 → 1SOBS 16:27
PROVIDERS: ADMIT Hospitalist; ATTEND Hospitalist
DX: R07.89 Other chest pain (principal); I25.2 Old myocardial infarction; E11.9 Type 2 diabetes mellitus without complications; I25.10 Atherosclerotic heart disease of native coronary artery without angina pectoris; Z95.5 Presence of coronary angioplasty implant and graft; Z95.1 Presence of aortocoronary bypass graft; I25.110 Atherosclerotic heart disease of native coronary artery with unstable angina pectoris; Z86.73 Personal history of transient ischemic attack (TIA), and cerebral infarction without residual deficits; K21.9 Gastro-esophageal reflux disease without esophagitis; I10 Essential (primary) hypertension; E78.5 Hyperlipidemia, unspecified; G47.30 Sleep apnea, unspecified; M10.9 Gout, unspecified; M19.90 Unspecified osteoarthritis, unspecified site; F41.9 Anxiety disorder, unspecified; F32.9 Major depressive disorder, single episode, unspecified; I45.10 Unspecified right bundle-branch block; Z79.01 Long term (current) use of anticoagulants; Z79.84 Long term (current) use of oral hypoglycemic drugs; Z79.899 Other long term (current) drug therapy; E78.00 Pure hypercholesterolemia, unspecified; I49.5 Sick sinus syndrome; Z79.82 Long term (current) use of aspirin; Z79.02 Long term (current) use of antithrombotics/antiplatelets; Z88.2 Allergy status to sulfonamides; Z88.8 Allergy status to other drugs, medicaments and biological substances; Z82.49 Family history of ischemic heart disease and other diseases of the circulatory system; Z83.3 Family history of diabetes mellitus; Z90.49 Acquired absence of other specified parts of digestive tract
CPT/HCPCS: 93005 ×2; 96366 ×3; 96376 ×3; 96365; 96375; 99285; 36415; 85379; 83880; 80061; 80053; 80048; 83735; 84484 ×2; 85025 ×2; 85610; 85730 ×2; 71046; G0378 ×2; J2270 ×3; J1644 ×2; J2405

== ENCOUNTER 2019-04-24 10:04 | Day surgery (SDC) | payer OTHER ==
[2019-04-20 14:30] VITALS: BMI 30.4
[~2019-04-24 10:04] MED LIST changes: -BACITRACIN 50,000 UNIT, POLYMYXIN B 500,000 UNIT in SODIUM CHLORIDE 0.9% IRRIGATIO 1,00... IRRIGATION ONE; -DEXAMETHASONE SOD PHOSPHATE 10 MG/ML 1 ML VIAL IV ONE; -GELATIN SPONGE,ABSORB (LARGE) 1 EACH SPONGE TOPICAL ONE; -GLYCOPYRROLATE 0.2 MG/ML 2 ML VIAL ONE; -LIDOCAINE 0.5%-EPI 1:200,000 50 ML VIAL SQ ONE; -LIDOCAINE 1% 20 ML VIAL (10MG/ML) FOR IV START INTRADERMA PRN; -LIDOCAINE 1% INJ 10MG/ML (20 ML MDV) ONE; -MIDAZOLAM 2 MG/2 ML VIAL IV PRN; -MIDAZOLAM 2 MG/2 ML VIAL ONE; -NEOSTIGMINE 1 MG/ML 10 ML VIAL ONE; -ONDANSETRON 4 MG/2 ML VIAL IVP ONE; -PROPOFOL 10 MG/ML 20 ML VIAL IV ONE; -ROCURONIUM BROMIDE 10 MG/ML 10 ML VIAL IV ONE; -SCOPOLAMINE 1.5MG/72HR PATCH TRANSDERM ONE; +SODIUM CHLORIDE 0.9% 1,000 ML IV SCH; -SUCCINYLCHOLINE CHLORIDE 100 MG/5 ML SYR IV ONE; -THROMBIN (BOVINE) 5,000 UNIT VIAL TOPICAL ONE; +ceFAZolin 1,000 MG in SODIUM CHLORIDE 0.9% IRRIGATIO 250 ML IRRIGATION ONE; -ePHEDrine SULFATE/0.9% NACL/PF 50 MG/5 ML SYRINGE IV ONE; -fentaNYL (PF) 50 MCG/ML 2 ML AMP ONE; -methylPREDNISolone ACETATE 40 MG/ML 1 ML VIAL MISCELLANE ONE
[2019-04-24] MEDS ORDERED: SODIUM CHLORIDE 0.9% 1,000 ML IV ONE (10:25)
[2019-04-24] MEDS ORDERED: LIDOCAINE 1% INJ 10MG/ML (20 ML MDV) ONE ×2 (10:41)
[2019-04-24] MEDS ORDERED: PROPOFOL 10 MG/ML 20 ML VIAL IV ONE (11:33)
[2019-04-24] MEDS ORDERED: fentaNYL (PF) 50 MCG/ML 2 ML AMP ONE (11:33)
[2019-04-24] MEDS ORDERED: MIDAZOLAM 2 MG/2 ML VIAL ONE (11:33)
[2019-04-24] MEDS ORDERED: IOPAMIDOL-250 50ML BTL IV ONE (11:51)
[2019-04-24] MEDS ORDERED: LIDOCAINE 1% INJ 10MG/ML (20 ML MDV) SQ ONE ×3 (12:22→14:44)
[2019-04-24] MEDS: LIDOCAINE 1% INJ 10MG/ML (20 ML MDV) SQ ONE ×3 (12:31→14:42)
[2019-04-24] MEDS ORDERED: LACTATED RINGERS 1,000 ML IV ONE (12:44)
[2019-04-24] MEDS ORDERED: IOPAMIDOL-370 50ML BTL INJ ONE (13:25)
[2019-04-24] MEDS ORDERED: ACETAMINOPHEN IV (For NPO) 1,000 MG in EMPTY BAG 1 BAG IVPB ONE (14:58)
[2019-04-24] MEDS ORDERED: ACETAMINOPHEN TAB 325 MG TAB PO PRN (14:58)
[2019-04-24] MEDS ORDERED: DICYCLOMINE 10 MG CAP PO PRN (15:00)
[2019-04-24] MEDS ORDERED: COLCHICINE 0.6 MG EACH PO PRN (15:00)
[2019-04-24] MEDS ORDERED: ALPRAZolam 0.5 MG TAB PO PRN (15:00)
--- NOTE | 2019-04-24 15:08 | P.PCN ---
Preoperative Diagnosis: Loop explant under sedation and local anesthesia. Anesthesia was in attendance Patient was brought to the EP lab in a fasting state. Written informed consent was obtained prior to the procedure. The subcutaneous device was successfully explanted under local anesthesia. Preoperative antibiotics were administered. The wound was closed in layers and dressed per protocol. Result: Successful loop monitor explantation.
--- NOTE | 2019-04-24 15:10 | P.PRLE ---
RE: Domingo Silva Dear Nicolasa Silva underwent biventricular pacemaker implantation for management of symptomatic sick sinus syndrome. I'm restarting his beta blockers at a higher dose, metoprolol succinate 50 mrem by mouth daily and this can be maximized further based upon his blood pressure. He has known coronary artery disease status post coronary artery bypass grafting and had a recent non-Q-wave myocardial infarction but we had to take him off his beta blockers because he had symptomatic bradycardia All his other medications will remain unchanged Thank you for entrusting me with the care of the patient Warm regards Sincerely Grant Kincaid
[2019-04-24] MEDS: METOPROLOL SUCCINATE (ER) 50 MG TAB.ER.24H PO SCH (15:27)
[2019-04-24] MEDS: HYDROcodone/APAP 5-325MG 1 EACH TAB PO PRN (19:51)
[2019-04-24] MEDS: TOPIRAMATE 100 MG TAB PO SCH (19:51)
[2019-04-24] MEDS ORDERED: traZODone HCL 50 MG TAB PO SCH (21:00)
[2019-04-25] MEDS: HYDROcodone/APAP 5-325MG 1 EACH TAB PO PRN ×2 (05:22→12:00)
--- NOTE | 2019-04-25 06:42 | CE ---
CARDIAC ELECTROPHYSIOLOGY REPORT Domingo Silva is a 63-year-old male patient who has sick sinus syndrome with severe bradycardia which is symptomatic necessitating discontinuation of beta blockers. He has known coronary artery disease, non-Q-wave myocardial infarction, coronary artery bypass grafting, recent non-Q-wave MA, but could not tolerate beta blockers on account of dizziness. He also has right bundle branch block morphology with a QRS width of greater than 163 milliseconds. A biventricular pacemaker was recommended for pacing to avoid RV only pacing. Patient was brought to the EP lab in a fasting state. Written informed consent was obtained prior to the procedure. The left shoulder area was prepped and draped as per protocol and 1% lidocaine used for local anesthesia. A 4 cm incision was made parallel to the deltopectoral groove, about 1.5 cm medial to it the incision was carried down to the level of the pectoralis muscle. A subfascial pocket was made. Hemostasis was assured. The left axillary vein was accessed at 3 separate points under fluoroscopy and via appropriately-sized introducer sheaths, 3 wires were placed in the right heart. First the RV lead was placed in the RV apex. This was a 58 cm Medtronic model #5076, serial #[id number]. This was positioned in the RV apex, screwed in. The R-waves were 10.8 mV, pacing impedance 703 ohms, pacing threshold 0.75 V at 0.5 milliseconds, 10 V test negative. Next a 3830 lead, his bundle lead, was attempted. Despite multiple attempts, the His bundle sheath would not even approach the His bundle area and it would simply approach the His bundle area. In fact, it would move caudally away from the His bundle. Multiple attempts were made at different rotations and with the His bundle lead protruding out of the sheath by at least 2 cm but adequate contact could not be achieved nor could the His bundle be mapped with this sheath. Therefore, an LV lead was placed and the coronary sinus was accessed. Coronary sinus venogram was performed. A large lateral vein was noted and Medtronic LV lead was placed. This was a Medtronic model #4398, 78 cm length and serial #[id number]. This was placed via the lateral vein into the lateral/posterior lateral position with excellent stability. Pacing thresholds were excellent in between 4, 2 and 3 were 0.5 V at 0.5 milliseconds, pacing impedance of 532 ohms, R-waves 8 mV. The atrial lead was a screw-in lead 52 cm in length, Medtronic model #5076 and serial #[id number]. This was screwed in the right atrial appendage. P waves were greater than 2 mV, pacing impedance 589 ohms, pacing threshold 0.8 V at 0.5 milliseconds, 10 V test negative. All 3 leads were secured to the underlying pectoralis muscle using 2 nonabsorbable sutures. Pocket was irrigated with antibiotic solution. Leads were connected to the generator (Medtronic model #W1TR02, serial #[id number]). The leads and generator were then placed in subfascial pocket. The wound was closed in 3 layers and dressed per protocol. RESULT: Successful biventricular pacemaker implantation for sick sinus syndrome and abnormal conduction system disease to avoid RV pacing with high-dose beta blockers. PLAN: Resume beta blockers at high doses. The patient has recurrent angina and non-Q-wave myocardial infarction. MMODL / IJN: [id number] /
--- NOTE | 2019-04-25 07:20 | XR ---
EXAMINATION TYPE: XR chest 2V DATE OF EXAM: 04/25/2019 COMPARISON: 04/18/2019 TECHNIQUE: PA and lateral views submitted. HISTORY: Lead placement check FINDINGS: The lungs are clear and there is no pneumothorax, pleural effusion, or focal pneumonia. Postoperati ve change and cardiac device noted. Postsurgical change left shoulder. No overt failure. IMPRESSION: 1. No acute postprocedural complication..
[2019-04-25 08:14] VITALS: RESP 18
[2019-04-25] MEDS: METOPROLOL SUCCINATE (ER) 50 MG TAB.ER.24H PO SCH (08:45)
[2019-04-25] MEDS: TOPIRAMATE 100 MG TAB PO SCH (08:46)
[2019-04-25] MEDS ORDERED: ASPIRIN 81 MG PO SCH (09:00)
[2019-04-25] MEDS ORDERED: LOSARTAN 50 MG TAB PO SCH (09:00)
[2019-04-25] MEDS ORDERED: ALLOPURINOL 100 MG TAB PO SCH (09:00)
[2019-04-25] MEDS ORDERED: DULoxetine HCL 60 MG CAPSULE.DR PO SCH (09:00)
[2019-04-25] MEDS ORDERED: CLOPIDOGREL 75 MG TAB PO SCH (09:00)
[2019-04-25] MEDS ORDERED: ISOSORBIDE MONONITRATE ER 30 MG TAB.ER.24H PO SCH (09:00)
--- NOTE | 2019-04-25 10:01 | P.DS ---
Providers Attending physician: Grant Kincaid Primary care physician: [facility] Course: Patient is resting comfortably in bed no chest discomfort dizziness lightheadedness He brought his tongue and his tongue is bruised otherwise is doing very well no JVD Normal heart sounds normal S1 normal S2 Normal breath sounds no rhonchi no crackles Abdomen soft nontender No lower extremity edema Pacemaker site is healed well and is no hematoma minimal bruising Reveal explant site is also healed well Impression Known coronary artery disease status post coronary artery bypass grafting Sick Sinus Syndrome necessitating disorientation of beta blockers Recent non-Q-wave myocardial infarction Recurrent palpitations and yesterday during the biventricular pacemaker implant, atrial tachycardia was induced when manipulating the catheter in the right atrium requiring electrical cardioversion Biventricular pacemaker pacemaker is functioning normally, LV lead in the lateral vein Chest x-ray within normal limits Plan Discharge home Restart beta blockers, long-acting metoprolol 50 mg by mouth daily instead of metoprolol tartrate Prescription given Continue all other medications follow-up in the device clinic within [address] Kincaid in 2-3 months for management of coronary artery disease and atrial tachycardia Plan - Discharge Summary Discharge Rx Participant: Yes New Discharge Prescriptions: New Metoprolol Succinate [Toprol XL] 50 mg PO DAILY #90 tab Continue Aspirin EC [Ecotrin Low Dose] 81 mg PO DAILY Evolocumab [Repatha Sureclick] 140 mg SQ Q14D Pantoprazole Sodium 40 mg PO DAILY Colchicine [Colcrys] 0.6 mg PO Q12H PRN PRN Reason: Gout Attack metFORMIN HCL ER [Glucophage Xr] 500 mg PO BID Dicyclomine HCl 10 mg PO TID PRN PRN Reason: Gi Upset traZODone HCL 25 mg PO HS Topiramate [Topamax] 100 mg PO BID Losartan [Cozaar] 50 mg PO DAILY #30 tab Nitroglycerin Sl Tabs [Nitrostat] 0.4 mg SUBLINGUAL Q5M PRN #20 tab PRN Reason: Chest Pain Tapentadol HCl [Nucynta] 50 mg PO Q8H PRN PRN Reason: Pain SUMAtriptan SUCCINATE [Imitrex] 50 mg PO BID PRN PRN Reason: Migraine Headache Promethazine HCl 12.5 mg PO TID PRN PRN Reason: Nausea Fexofenadine HCl [Vidhya Allergy] 180 mg PO DAILY Clopidogrel Bisulfate [Plavix] 75 mg PO DAILY Allopurinol [Zyloprim] 100 mg PO DAILY DULoxetine HCL [Cymbalta] 120 mg PO DAILY ALPRAZolam [Xanax] 0.5 mg PO BID PRN PRN Reason: Anxiety Isosorbide Mononitrate ER [Imdur] 30 mg PO DAILY Discharge Medication List Aspirin EC [Ecotrin Low Dose] 81 mg PO DAILY 11/22/17 [History] Colchicine [Colcrys] 0.6 mg PO Q12H PRN 11/22/17 [History] Dicyclomine HCl 10 mg PO TID PRN 11/22/17 [History] Evolocumab [Repatha Sureclick] 140 mg SQ Q14D 11/22/17 [History] Pantoprazole Sodium 40 mg PO DAILY 11/22/17 [History] metFORMIN HCL ER [Glucophage Xr] 500 mg PO BID 11/22/17 [History] Topiramate [Topamax] 100 mg PO BID 11/03/18 [History] traZODone HCL 25 mg PO HS 11/03/18 [History] Losartan [Cozaar] 50 mg PO DAILY #30 tab 02/17/19 [Rx] Nitroglycerin Sl Tabs [Nitrostat] 0.4 mg SUBLINGUAL Q5M PRN #20 tab 02/17/19 [Rx] ALPRAZolam [Xanax] 0.5 mg PO BID PRN 04/18/19 [History] Allopurinol [Zyloprim] 100 mg PO DAILY 04/18/19 [History] Clopidogrel Bisulfate [Plavix] 75 mg PO DAILY 04/18/19 [History] DULoxetine HCL [Cymbalta] 120 mg PO DAILY 04/18/19 [History] Fexofenadine HCl [Vidhya Allergy] 180 mg PO DAILY 04/18/19 [History] Promethazine HCl 12.5 mg PO TID PRN 04/18/19 [History] SUMAtriptan SUCCINATE [Imitrex] 50 mg PO BID PRN 04/18/19 [History] Tapentadol HCl [Nucynta] 50 mg PO Q8H PRN 04/18/19 [History] Isosorbide Mononitrate ER [Imdur] 30 mg PO DAILY 04/20/19 [History] Metoprolol Succinate [Toprol XL] 50 mg PO DAILY #90 tab 04/24/19 [Rx] Follow up Appointment(s)/Referral(s): Grant Kincaid MD [STAFF PHYSICIAN] - 1 Week (Late morning, early afternoon appointment. Device clinic follow-up within 5 days Follow-up with Dr. Kincaid/Mary Kerr/Columba Chou in 6 weeks) Patient Instructions/Handouts: Heart Healthy Diet (DC), Pacemaker (DC)
[2019-04-25 11:36] VITALS: BP 131/72; PULSE 72; TEMP 97.8
[2019-04-26] MEDS ORDERED: metFORMIN 500 MG TAB PO SCH (17:30)
[2019-05-03] MEDS ORDERED: EVOLOCUMAB SQ SCH (09:00)
== END 2019-04-25 15:13 | disposition home or self-care (01) ==
LOC: CATHEP 10:04 → 1SOBS 14:26 → CATHEP 04-25 15:13
PROVIDERS: ATTEND Internal Medicine Clinical Cardiac Electrophysiology
DX: I49.5 Sick sinus syndrome (principal); I45.10 Unspecified right bundle-branch block; Z45.09 Encounter for adjustment and management of other cardiac device; I47.1 Supraventricular tachycardia; I25.10 Atherosclerotic heart disease of native coronary artery without angina pectoris; I10 Essential (primary) hypertension; E78.5 Hyperlipidemia, unspecified; E11.9 Type 2 diabetes mellitus without complications; G47.33 Obstructive sleep apnea (adult) (pediatric); Z99.89 Dependence on other enabling machines and devices; R55 Syncope and collapse; I25.2 Old myocardial infarction; Z95.5 Presence of coronary angioplasty implant and graft; Z95.1 Presence of aortocoronary bypass graft; I25.810 Atherosclerosis of coronary artery bypass graft(s) without angina pectoris; Z82.49 Family history of ischemic heart disease and other diseases of the circulatory system; Z79.84 Long term (current) use of oral hypoglycemic drugs; Z79.82 Long term (current) use of aspirin; Z79.899 Other long term (current) drug therapy; Z79.02 Long term (current) use of antithrombotics/antiplatelets; Z88.8 Allergy status to other drugs, medicaments and biological substances
CPT/HCPCS: 33225; 33208; 33286; 71046; C1769 ×5; C1892; C1730; C1898; C2621; C1900; J2250; J0690 ×2; J2001; J3010; J0131; J2704; Q9966; Q9967

== ENCOUNTER 2019-07-01 22:03 | Inpatient (IN) | payer OTHER ==
[2019-07-01] MEDS ORDERED: HEPARIN SODIUM,PORCINE 5,000 UNIT/ML 1 ML VIAL IV PRN (23:12)
[2019-07-01] MEDS ORDERED: NITROGLYCERIN-D5W PMX 50 MG in DEXTROSE/WATER 1 250ML.BAG IV ONE (23:13)
[2019-07-01] MEDS ORDERED: HEPARIN SOD,PORK IN 0.45% NACL 25,000 UNIT in 0.45% NACL 1 250ML.BAG IV SCH (23:15)
[2019-07-01 23:22] LABS: Basophils % (A) 0 %; Eosinophils # (A) 0.1 k/uL (0-0.7); Eosinophils % (A) 0 %; HCT 42.8 % (39.0-53.0); HGB 13.3 gm/dL (13.0-17.5); Hypochromasia Marked; Lymphocytes # (A) 1.7 k/uL (1.0-4.8); Lymphocytes % (A) 12 %; MCH 24.9 pg (25.0-35.0); MCHC 31.2 g/dL (31.0-37.0); MCV 79.8 fL (80.0-100.0); Mean Platelet Volume 7.8; Monocytes # (A) 0.5 k/uL (0-1.0); Monocytes % (A) 3 %; Neutrophils # (A) 11.6 k/uL (1.3-7.7); Neutrophils % (A) 83 %; Platelet Count 308 k/uL (150-450); RBC 5.36 m/uL (4.30-5.90); RDW 15.4 % (11.5-15.5)
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
[2019-07-01 23:32] LABS: African American GFR (CKD) >90 (>60 ml/min/1.73 sqM); Albumin 4.6 g/dL (3.5-5.0); Anion Gap 11 mmol/L; Blood Urea Nitrogen 18 mg/dL (9-20); Calcium 9.7 mg/dL (8.4-10.2); Carbon Dioxide 24 mmol/L (22-30); Chloride 104 mmol/L (98-107); Glucose 138 mg/dL (74-99); Non-African American GFR(CKD) 84 (>60 ml/min/1.73 sqM); Potassium 4.7 mmol/L (3.5-5.1); Sodium 139 mmol/L (137-145); Total Bilirubin 0.5 mg/dL (0.2-1.3); Total Protein 7.8 g/dL (6.3-8.2)
[2019-07-01 23:33] LABS: ALT 28 U/L (4-49); AST 86 U/L (17-59); Alkaline Phosphatase 91 U/L (38-126)
[2019-07-01] MEDS ORDERED: MORPHINE SULFATE 4 MG/ML SYRINGE IVP STA (23:41)
[2019-07-01] MEDS ORDERED: NALOXONE 0.4 MG/ML 1 ML VIAL IV PRN (23:42)
[2019-07-01 23:44] LABS: INR 1.1 (<1.2); Prothrombin Time 10.9 sec (9.0-12.0)
[2019-07-01 23:47] LABS: Partial Thromboplastin Time 166.3 sec (22.0-30.0)
[2019-07-02] MEDS ORDERED: METOPROLOL TARTRATE 50 MG TAB PO STA (00:14)
[2019-07-02] MEDS ORDERED: NITROGLYCERIN-D5W PMX 50 MG in DEXTROSE/WATER 1 250ML.BAG IV SCH (01:15)
[2019-07-02] MEDS: MORPHINE SULFATE 4 MG/ML SYRINGE IV PRN ×3 (03:31→17:00)
[2019-07-02 06:01] LABS: Glucose,Whole Blood 114 mg/dL (75-99)
[2019-07-02] MEDS ORDERED: SODIUM CHLORIDE 0.9% 1,000 ML in EMPTY BAG 1 BAG IV ONE (06:48)
[2019-07-02] MEDS ORDERED: ASPIRIN 325 MG TAB PO STA (06:48)
[2019-07-02] MEDS ORDERED: NITROGLYCERIN SL TABS 0.4 MG TAB SUBLINGUAL PRN ×2 (06:48→09:56)
[2019-07-02] MEDS ORDERED: ALPRAZolam 0.5 MG TAB PO PRN (06:48)
[2019-07-02] MEDS ORDERED: ALPRAZolam 0.25 MG TAB PO PRN (06:48)
[2019-07-02] MEDS ORDERED: ATORVASTATIN 80 MG TAB PO STA (06:48)
[2019-07-02 07:09] LABS: Partial Thromboplastin Time 27.6 sec (22.0-30.0); Prothrombin Time 10.3 sec (9.0-12.0)
[2019-07-02 07:14] LABS: Basophils # (A) 0.1 k/uL (0-0.2); Basophils % (A) 1 %; Eosinophils # (A) 0.2 k/uL (0-0.7); Eosinophils % (A) 2 %; HCT 37.9 % (39.0-53.0); HGB 11.5 gm/dL (13.0-17.5); Hypochromasia Moderate; Lymphocytes # (A) 2.3 k/uL (1.0-4.8); Lymphocytes % (A) 29 %; MCH 23.9 pg (25.0-35.0); MCHC 30.4 g/dL (31.0-37.0); MCV 78.7 fL (80.0-100.0); Mean Platelet Volume 6.7; Monocytes # (A) 0.5 k/uL (0-1.0); Monocytes % (A) 6 %; Neutrophils # (A) 4.8 k/uL (1.3-7.7); Neutrophils % (A) 61 %; Platelet Count 250 k/uL (150-450); RBC 4.81 m/uL (4.30-5.90); RDW 15.5 % (11.5-15.5); WBC 7.9 k/uL (3.8-10.6)
[2019-07-02 07:17] LABS: African American GFR (CKD) >90 (>60 ml/min/1.73 sqM); Anion Gap 7 mmol/L; Blood Urea Nitrogen 17 mg/dL (9-20); Calcium 8.7 mg/dL (8.4-10.2); Carbon Dioxide 23 mmol/L (22-30); Chloride 107 mmol/L (98-107); Glucose 114 mg/dL (74-99); Non-African American GFR(CKD) 81 (>60 ml/min/1.73 sqM); Potassium 4.3 mmol/L (3.5-5.1); Sodium 137 mmol/L (137-145)
[2019-07-02] MEDS: CLOPIDOGREL 75 MG TAB PO SCH (07:26)
[2019-07-02] MEDS: METOPROLOL SUCCINATE (ER) 50 MG TAB.ER.24H PO SCH (07:26)
[2019-07-02] MEDS ORDERED: IV FLUID CONTINUATION 500 ML IV ONE (07:58)
[2019-07-02] MEDS ORDERED: fentaNYL (PF) 50 MCG/ML 2 ML AMP ONE (08:12)
[2019-07-02] MEDS ORDERED: MIDAZOLAM 2 MG/2 ML VIAL IV ONE ×2 (08:15→08:20)
[2019-07-02] MEDS ORDERED: fentaNYL (PF) 50 MCG/ML 2 ML AMP IV ONE (08:15)
[2019-07-02] MEDS ORDERED: LIDOCAINE 1% INJ 10MG/ML (20 ML MDV) ONE (08:18)
[2019-07-02] MEDS ORDERED: LIDOCAINE 1% INJ 10MG/ML (20 ML MDV) SQ ONE (08:19)
[2019-07-02] MEDS ORDERED: IOPAMIDOL-370 125ML BTL INJ ONE (08:37)
[2019-07-02] MEDS ORDERED: IOPAMIDOL-370 50ML BTL INJ ONE (08:43)
[2019-07-02] MEDS ORDERED: BIVALIRUDIN 250 MG in SODIUM CHLORIDE 0.9% 50 ML IV ONE (08:49)
[2019-07-02] MEDS ORDERED: BIVALIRUDIN BOLUS 250 MG/50 ML IV ONE (08:49)
[2019-07-02] MEDS ORDERED: IOPAMIDOL-370 100ML BTL INJ ONE ×3 (09:16→09:27)
[2019-07-02] MEDS ORDERED: MAG HYDROX/AL HYDROX/SIMETH 30 ML CUP PO PRN (09:56)
[2019-07-02] MEDS ORDERED: RX INFO: IV CONTRAST WAS GIVEN 1 EACH MISC MISCELLANE PRN (09:56)
[2019-07-02] MEDS ORDERED: ZOLPIDEM 5 MG TAB PO PRN (09:56)
[2019-07-02] MEDS ORDERED: ATROPINE SULFATE 0.1 MG/ML 10ML SYRINGE IV PRN (09:56)
[2019-07-02] MEDS ORDERED: SODIUM CHLORIDE 0.9% 1,000 ML IV SCH (10:00)
[2019-07-02 10:12] LABS: Cholesterol 139 mg/dL (<200); HDL Cholesterol 42 mg/dL (40-60); LDL Cholesterol,Calculated 62 mg/dL (0-99); Triglycerides 176 mg/dL (<150)
[2019-07-02] MEDS ORDERED: SUMAtriptan SUCCINATE 50 MG TAB PO PRN (10:16)
[2019-07-02] MEDS ORDERED: DICYCLOMINE 10 MG CAP PO PRN (10:16)
--- NOTE | 2019-07-02 10:28 | CC ---
CARDIAC CATHETERIZATION REPORT Mr. Silva is a 63-year-old male with known history of coronary artery disease, hypertension, hyperlipidemia, diabetes mellitus, prior history of percutaneous revascularization and coronary bypass grafting who presented with symptoms of chest pain and non ST-segment elevation myocardial infarction. He was evaluated by Dr. Kincaid and recommendation made regarding cardiac catheterization. The procedures, risks, and complication were discussed with the patient who is in full understanding and agreement. DESCRIPTION OF PROCEDURE: Patient was brought to the petroleum refinery laborer in a fasting semi-sedated state after receiving fentanyl and Benadryl and achieving moderate conscious sedated state. Using Xylocaine anesthesia and Seldinger technique, a 6-[place] sheath was introduced in the right femoral artery. Selective right and left coronary angiography performed using 6-[place] 4 bend right and left Judkin's catheter. Multiple views of the coronary arteries including hemiaxial views obtained. The 6-[place] right Kuldeep risk used to cannulate the ALBARRAN to LAD. Images of the grafts were obtained. Following that, 6-[place] tight pigtail catheter was introduced into the left ventricle and pressures were calculated. Following that, an BRAZILIAN view of the ascending aorta was performed. Following that, using 6-[place] LCB catheter, images of the graft to the obtuse marginal branch were performed. Following that, images were reviewed and the catheter was removed. FINDINGS: LEFT MAIN: This is a large-sized vessel bifurcating into left circumflex, left anterior descending artery, left main coronary artery has a 10% plaque. LEFT ANTERIOR DESCENDING ARTERY: This vessel has a long stent proximally, has diffuse intimal disease of 40% to 50%. There is competitive flow into the LAD afterward with no significant antegrade flow. LEFT CIRCUMFLEX: This is a large codominant vessel, giving rise to a very proximal obtuse marginal branch distally bifurcating into PDA and posterolateral segment and branches. The left circumflex at the ostium has an area of haziness very eccentric with an area of stenosis that is about 70%. The 1st obtuse marginal branch is patent. The area of prior angioplasty has intimal disease. Distally, there is intimal disease without any evidence of high-grade stenosis. RIGHT CORONARY ARTERY: This vessel is totally occluded in mid segment with no significant antegrade flow. ALBARRAN TO THE LAD: The distal anastomotic site is patent. The flow in the LAD is brisk. There is retrograde flow into the proximal LAD. Saphenous vein graft to the obtuse marginal branch: The proximal distal anastomotic sites are patent. There is intimal disease in the body of the graft proximally of 20% to 30%. The flow into the ramus intermedius is brisk. There is retrograde flow into the quinault circumflex. LEFT VENTRICULOGRAM: Not performed. HEMODYNAMICS: There was no gradient across the aortic valve. The left ventricular end-diastolic pressure was 14 to 16 mmHg. Aortogram was performed in the BRAZILIAN view and revealed a tricuspid aortic valve with 1+ aortic regurgitation. CONCLUSION: 1. Subtotally occluded LAD with patent ALBARRAN to LAD. 2. Critical stenosis in the ostium of the left circumflex that appears to be ruptured plaque. 3. Chronically occluded right coronary artery. 4. Patent saphenous vein graft to the obtuse marginal branch. 5. Normal appearance of the ascending aorta. RECOMMENDATION: In view of findings and anatomy, I recommend proceeding with angioplasty and stenting of the ostium of the left circumflex. The procedure as well as risks and complications were discussed with the patient who is in full understanding and agreement. MMODL / IJN: [id number] /
--- NOTE | 2019-07-02 10:40 | CC ---
CARDIAC CATHETERIZATION REPORT Mr. Silva is a 63-year-old male with known history of coronary artery disease status post percutaneous revascularization, coronary bypass grafting who presented with non ST- segment elevation myocardial infarction, underwent cardiac catheterization, was found to have critical stenosis involving the ostium of the left circumflex. In view of that, recommendation was made regarding angioplasty and stenting. The procedures, risks, and complications were discussed with the patient who is in full understanding and agreement. DESCRIPTION OF PROCEDURE: A 6-Syriac FR4 guiding catheter was introduced into the system. After cannulating the left main, a 0.014 balanced medium weight J-wire was advanced across the lesion positioned distally, then an export catheter was introduced and one run was performed. There was no removal of any material. Following that, a 3.0 x 12 mm Trek balloon was advanced and one inflation at 10 atmospheres was done. Following that, the balloon was removed and another 0.014 balanced medium weight J-wire was advanced next to the first one in a alexa fashion. Following that, a 3.5 x 12 mm Xience stent was advanced, deployed and was dilated at 16 atmospheres. Following that, the balloon was removed and a 4.0 x 8 mm NC Trek balloon was advanced and two inflations at a maximum of 14 atmospheres were done. After the last inflation, after appropriate wait, the balloon and the guidewire were withdrawn back in the guiding catheter. Images were obtained and repeated. He received Angiomax per protocol. Those images reveal stable successful stenting. At that point, the guiding catheter, the balloon and the guidewire were removed. The sheath was sutured in place. There was inability to advance the Angio-Seal because of significant scar tissue. The patient was returned to his room in stable condition. He had no chest discomfort. He was intermittently paced. RESULTS: Successful stenting of the ostium of the the left circumflex with reduction of stenosis from 70% to 0%. RECOMMENDATIONS: Patient will be continued on aspirin, Plavix, CEE inhibitor and Repatha. The importance of dual antiplatelet treatment was discussed with the patient and he is full understanding and agreement. Duration of procedure is 80 minutes. MMODL / IJN: [id number] / MTDD
[2019-07-02 10:48] LABS: C Reactive Protein 8.1 mg/L (<10.0)
[2019-07-02 11:40] LABS: Glucose,Whole Blood 103 mg/dL (75-99)
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
[2019-07-02 12:45] VITALS: BMI 23.3
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
[2019-07-02 16:47] LABS: Glucose,Whole Blood 115 mg/dL (75-99)
[2019-07-02 20:40] LABS: Glucose,Whole Blood 127 mg/dL (75-99)
[2019-07-02] MEDS ORDERED: FAMOTIDINE 20 MG/2 ML VIAL IV SCH (21:00)
[2019-07-02] MEDS: TOPIRAMATE 100 MG TAB PO SCH (21:10)
[2019-07-02] MEDS: HEPARIN SODIUM,PORCINE 5,000 UNIT/ML 1 ML VIAL SQ SCH (21:10)
[2019-07-02] MEDS: FAMOTIDINE 20 MG TAB PO SCH (21:10)
[2019-07-02] MEDS: traZODone HCL 50 MG TAB PO SCH (21:10)
[2019-07-03 06:23] LABS: Glucose,Whole Blood 102 mg/dL (75-99)
[2019-07-03] MEDS: PANTOPRAZOLE 40 MG TABLET PO SCH (06:45)
[2019-07-03 06:47] LABS: Calcium 8.7 mg/dL (8.4-10.2); Potassium 4.6 mmol/L (3.5-5.1)
--- NOTE | 2019-07-03 08:18 | NM ---
EXAMINATION TYPE: NM pul vent and perfuse DATE OF EXAM: 07/03/2019 COMPARISON: Chest x-ray dated 07/01/2019. No available chest x-ray of the same date. HISTORY: Elevated d-dimer. TECHNIQUE: Utilizing inhalation of 38.7 mCi Tc 99m DTPA aerosol and intravenous injection of 5.3 mCi of Tc 99m MAA, ventilation and perfusion images are acquired post injection in multiple projections. FINDINGS: The patient has a known left sided cardiac device partially visualized on the oblique images. Normal radiotracer distribution is noted in the lungs during the perfusion portion of the examination. Sligh tly suboptimal patchy radiotracer distribution during the ventilation portion of the examination. The re is no evidence of mismatched defects. IMPRESSION: Low probability for pulmonary embolus. The ventilation portion of the examination is slig htly suboptimal however no sizable perfusion abnormality is appreciated.
[2019-07-03] MEDS: DULoxetine HCL 60 MG CAPSULE.DR PO SCH (09:00)
[2019-07-03] MEDS: HEPARIN SODIUM,PORCINE 5,000 UNIT/ML 1 ML VIAL SQ SCH ×2 (09:00→21:57)
[2019-07-03] MEDS: ASPIRIN 81 MG PO SCH (09:00)
[2019-07-03] MEDS: FAMOTIDINE 20 MG TAB PO SCH ×2 (09:00→21:57)
[2019-07-03] MEDS: CLOPIDOGREL 75 MG TAB PO SCH (09:00)
[2019-07-03] MEDS: ALLOPURINOL 100 MG TAB PO SCH (09:00)
[2019-07-03] MEDS: ISOSORBIDE MONONITRATE ER 30 MG TAB.ER.24H PO SCH (09:00)
[2019-07-03] MEDS: TOPIRAMATE 100 MG TAB PO SCH ×2 (09:01→21:57)
[2019-07-03] MEDS: METOPROLOL SUCCINATE (ER) 50 MG TAB.ER.24H PO SCH (09:01)
[2019-07-03] MEDS: LOSARTAN 50 MG TAB PO SCH (09:01)
--- NOTE | 2019-07-03 10:00 | ECHOF ---
Referral Reason:mi MEASUREMENTS -------- HEIGHT: 180.3 cm WEIGHT: 105.7 kg BP: 138/73 RVIDd: 3.1 cm (< 3.3) IVSd: 1.0 cm (0.6 - 1.1) LVIDd: 3.8 cm (3.9 - 5.3) LVPWd: 1.3 cm (0.6 - 1.1) IVSs: 1.5 cm LVIDs: 1.8 cm LVPWs: 1.7 cm LAESV Index (A-L): 11.85 ml/m Ao Diam: 3.3 cm (2.0 - 3.7) AV Cusp: 2.2 cm (1.5 - 2.6) LA Diam: 3.7 cm (2.7 - 3.8) MV EXCURSION: 21.171 mm (> 18.000) MV EF SLOPE: 60 mm/s (70 - 150) EPSS: 0.5 cm MV E Michael: 0.72 m/s MV DecT: 259 ms MV A Michael: 0.76 m/s MV E/A Ratio: 0.94 AR PHT: 545 ms RAP: 5.00 mmHg RVSP: 12.89 mmHg FINDINGS -------- Sinus rhythm. This was a technically difficult study with suboptimal views. The left ventricular size is normal. Left ventricular wall thickness is normal. Overall left vent ricular systolic function is normal with, an EF between 55 - 60 %. The diastolic filling pattern is normal for the age of the patient 10.13. The right ventricle is normal in size. The left atrial size is normal. Normal LA size by volume 22+/-6 ml/m2. The right atrial size is normal. Lumason used The aortic valve is trileaflet and appears structurally normal. The mitral valve is normal. There is trace mitral regurgitation. The tricuspid valve appears structurally normal. Trace tricuspid regurgitation present. Right dani tricular systolic pressure is normal at < 35 mmHg. There is no pulmonic regurgitation present. The aortic root size is normal. IVC Not well visulized. There is no pericardial effusion. CONCLUSIONS -------- 1. Sinus rhythm. 2. This was a technically difficult study with suboptimal views. 3. The left ventricular size is normal. 4. Left ventricular wall thickness is normal. 5. Overall left ventricular systolic function is normal with, an EF between 55 - 60 %. 6. The diastolic filling pattern is normal for the age of the patient 10.13 7. The right ventricle is normal in size. 8. The left atrial size is normal. 9. Normal LA size by volume 22+/-6 ml/m2. 10. The right atrial size is normal. 11. Lumason used 12. The aortic valve is trileaflet and appears structurally normal. 13. The mitral valve is normal. 14. There is trace mitral regurgitation. 15. The tricuspid valve appears structurally normal. 16. Trace tricuspid regurgitation present. 17. Right ventricular systolic pressure is normal at < 35 mmHg. 18. There is no pulmonic regurgitation present. 19. The aortic root size is normal. 20. IVC Not well visulized. 21. There is no pericardial effusion. ELECTRONIC INDUCTION HARDENER: Ksenia Ibarra RDCS
[2019-07-03 11:03] LABS: Ferritin 14.6 ng/mL (22.0-322.0)
--- NOTE | 2019-07-03 11:29 | P.PN ---
Subjective Progress Note Date: 07/03/19 This is a pleasant 63-year-old gentleman with known history of coronary artery disease and prior bypass surgery, history of bradycardia status post biventricular pacing, hypertension, hyperlipidemia, who presented to the hospital with a non-ST elevation AK. He underwent angioplasty and stenting of the circumflex artery. Patient was seen and examined this morning, he had a good night last night, denied any chest discomfort, did complain of some mild right sided discomfort last evening, no pain this morning. He has mild pain in the groin area, his right groin is soft with no evidence of any hematoma, no ecchymosis. Good distal pulse. The patient cannot tolerate statins and is on Repatha as an outpatient. We will start him on some Pravachol low-dose here. Resume his circumflex past the on discharge. Patient has been encouraged to be up ambulating today, plan for possible discharge home in 24 hours if stable. Blood pressure this morning 140/70 with a heart rate in the 70s. Sodium 138, potassium 4.6, BUN 15 and creatinine 1.1. Echocardiogram with Doppler study revealed a normal left ventricular systolic function. Objective - Vital Signs Vital signs: Vital Signs Temp 98.6 F 07/03/19 08:00 Pulse 78 07/03/19 08:00 Resp 14 07/03/19 08:00 BP 144/71 07/03/19 08:00 Pulse Ox 96 07/03/19 08:00 Intake & Output 07/02/19 07/03/19 07/03/19 18:59 06:59 18:59 Intake Total 1296.44 500 Output Total 800 500 Balance 496.44 0 Weight 78 kg 105.8 kg Intake: IV 956.44 300 Sodium Chloride 0.9% 1, 800 300 000 ml @ 100 mls/hr IV . Q10H [facility] Rx#:[id number] Oral 340 200 Output: Urine 800 500 Other: Voiding Method Urinal # Voids 1 - Exam PHYSICAL EXAMINATION: GENERAL: 63-year-old gentleman in no acute distress at the time of my examination HEENT: Head is atraumatic, normocephalic. Pupils equal, round. Sclera anicteric. Conjunctiva are clear. Mucous membranes of the mouth are moist. Neck is supple. There is no elevated jugular venous pressure. No carotid brui t is heard. HEART EXAMINATION: Heart S1, S2 normal. No murmur or gallop heard. CHEST EXAMINATION: Lungs are clear to auscultation and precussion. No chest wall tenderness is noted on palpation or with deep breathing. ABDOMEN: Soft, nontender. Bowel sounds are heard. No organomegaly noted. EXTREMITIES: 2+ peripheral pulses with no evidence of peripheral edema and no calf tenderness noted. Right groin soft, no evidence of any hematoma, no ecchymosis NEUROLOGIC patient is awake, alert and oriented X3. . - Labs CBC & Chem 7: 07/02/19 06:39 07/03/19 05:56 Labs: Abnormal Lab Results - Last 24 Hours (Table) 07/02/19 07/02/19 07/02/19 Range/Units 10:15 11:32 16:44 Glucose (74-99) mg/dL POC Glucose (mg/dL) 103 H 115 H (75-99) mg/dL Ferritin 14.6 L (22.0-322.0) ng/mL 07/02/19 07/03/19 07/03/19 Range/Units 20:39 05:56 06:21 Glucose 107 H (74-99) mg/dL POC Glucose (mg/dL) 127 H 102 H (75-99) mg/dL Ferritin (22.0-322.0) ng/mL Assessment and Plan Plan: Assessment and plan #1 non-ST elevation AK status post angioplasty and stenting of the circumflex artery #2 known history of coronary artery disease with prior bypass surgery #3 hyperlipidemia, intolerant to statins, patient takes for as an outpatient. #4 hypertension Plan We will start the patient on Pravachol 10 mg daily, as an outpatient he will be resumed on his Repatha. He's been encouraged to be up ambulating today. Plan for possible discharge home in 24 hours if stable. DNP note has been reviewed, I agree with a documented findings and plan of care. Patient was seen and examined.
[2019-07-03 11:41] VITALS: RESP 16
--- NOTE | 2019-07-03 14:45 | P.PN ---
Subjective Progress Note Date: 07/03/19 Principal diagnosis: This is a pleasant 63 years old male with past medical history of coronary artery disease status post CABG, CVA/TIA, diabetes mellitus, hypertension, hyperlipidemia, osteoarthritis, sleep apnea on CPAP/BiPAP, migraine, herniated disc with chronic back pain and radiculopathy. He is a patient of Dr. Monet. He presents because of chest pain. Patient says that yesterday he was walking up hill with his friends when he got really short of breath and nauseated and he has to lie down on the grass after working for another 100 feet he got chest pain, central radiating into the left arm and jaw with some weakness in the left arm and leg felt like 10/10 so he decided to come to emergency room especially he has history of heart disease , Vitals are stable. Labs include CBC, BMP, liver enzymes, INR on unremarkable. Troponin significantly elevated at 19.5 and 54.4. Coronavirus not detected. EKG: Paced rhythm. No significant ST-T changes Patient underwent urgent cardiac cath by advice clerk team with successful stenting of the ostium of the left circumflex artery. After the cardiac cath his chest pain, dyspnea are completely resolved and his chest pain is 0/10. His weakness in the left leg and left arm resolved. Patient d-dimer is mildly elevated at 0.8, however because he got cardiac cath today and contrast, to prevent nephrotoxicity we will order VQ scan 07/03/2019 Patient is seen and evaluated in follow-up today status post cardiac catheterization with successful stenting of the circumflex artery. Cardiology following. Patient underwent VQ scan as his d-dimer was slightly elevated at 0.8 showing low probability for pulmonary embolus. Patient also underwent echo today showing overall left ventricular systolic function is normal with an EF of 55-60 percent. Patient initiated on Pravachol while hospitalized and will resume Repatha that he normally takes in the outpatient setting upon discharge. Patient instructed to be up as tolerated and increase activity and will continue to monitor closely. Review of systems: Constitutional: No reports of fatigue or fevers Cardiovascular: No reports of chest pain or palpitations Respiratory: No reports of shortness of breath or cough GI: No reports of nausea, vomiting, or diarrhea : No reports of dysuria or retention Neuro: No reports of weakness or numbness Active Medications Al Hydroxide/Mg Hydroxide (Maalox) 30 ml PO Q4HR PRN PRN Reason: Heartburn Allopurinol (Zyloprim) 100 mg PO DAILY [facility] Last Admin: 07/03/19 09:00 Dose: 100 mg Documented by: Alprazolam (Xanax) 0.25 mg PO Q6HR PRN PRN Reason: Mild Anxiety Alprazolam (Xanax) 0.5 mg PO Q6HR PRN PRN Reason: Moderate Anxiety Aspirin (Aspirin) 81 mg PO DAILY [facility] Last Admin: 07/03/19 09:00 Dose: 81 mg Documented by: Atropine Sulfate (Atropine) 0.5 mg IV ONCE PRN PRN Reason: Symptomatic Bradycardia Clopidogrel Bisulfate (Plavix) 75 mg PO DAILY [facility] Last Admin: 07/03/19 09:00 Dose: 75 mg Documented by: Dicyclomine HCl (Bentyl) 10 mg PO TID PRN PRN Reason: GI Upset Duloxetine HCl (Cymbalta) 120 mg PO DAILY [facility] Last Admin: 07/03/19 09:00 Dose: 120 mg Documented by: Famotidine (Pepcid) 20 mg PO Q12HR [facility] Last Admin: 07/03/19 09:00 Dose: 20 mg Documented by: Heparin Sodium (Porcine) (Heparin) 5,000 unit SQ Q12HR [facility] Last Admin: 07/03/19 09:00 Dose: 5,000 unit Documented by: Isosorbide Mononitrate (Imdur) 30 mg PO DAILY [facility] Last Admin: 07/03/19 09:00 Dose: 30 mg Documented by: Losartan Potassium (Cozaar) 50 mg PO DAILY [facility] Last Admin: 07/03/19 09:01 Dose: 50 mg Documented by: Metoprolol Succinate (Toprol Xl) 50 mg PO DAILY [facility] Last Admin: 07/03/19 09:01 Dose: 50 mg Documented by: Miscellaneous Information (Rx Info: Iv Contrast Was Given) 1 each MISCELLANE DAILY PRN PRN Reason: Per Protocol Stop: 07/04/19 09:56 Morphine Sulfate (Morphine Sulfate (Inj)) 4 mg IV Q4HR PRN PRN Reason: Severe Pain Last Admin: 07/02/19 17:00 Dose: 4 mg Documented by: Naloxone HCl (Narcan) 0.2 mg IV Q2M PRN PRN Reason: Opioid Reversal Nitroglycerin (Nitrostat) 0.4 mg SUBLINGUAL Q5M PRN PRN Reason: Chest Pain Non-Formulary Medication (Evolocumab [Repatha Sureclick]) 140 mg SQ Q14D [facility] Pantoprazole Sodium (Protonix) 40 mg PO AC-BRKFST [facility] Last Admin: 07/03/19 06:45 Dose: 40 mg Documented by: Pravastatin Sodium (Pravachol) 10 mg PO HS [facility] Sumatriptan Succinate (Imitrex) 50 mg PO BID PRN PRN Reason: Migraine Headache Topiramate (Topamax) 100 mg PO BID [facility] Last Admin: 07/03/19 09:01 Dose: 100 mg Documented by: Trazodone HCl (Desyrel) 25 mg PO HS [facility] Last Admin: 07/02/19 21:10 Dose: 25 mg Documented by: Zolpidem Tartrate (Ambien) 5 mg PO HS PRN PRN Reason: Insomnia Objective - Vital Signs Vital signs: Vital Signs Temp 98.7 F 07/03/19 11:40 Pulse 102 H 07/03/19 12:00 Resp 16 07/03/19 11:40 BP 142/83 07/03/19 11:40 Pulse Ox 98 07/03/19 11:40 Intake & Output 07/02/19 07/03/19 07/03/19 18:59 06:59 18:59 Intake Total 1296.44 500 Output Total 800 500 Balance 496.44 0 Weight 78 kg 105.8 kg Intake: IV 956.44 300 Sodium Chloride 0.9% 1, 800 300 000 ml @ 100 mls/hr IV . Q10H [facility] Rx#:[id number] Oral 340 200 Output: Urine 800 500 Other: Voiding Method Urinal # Voids 1 - Exam GENERAL: The patient is alert and oriented x3, not in any acute distress. Well developed, well nourished. Temp is 98.6F, pulse is 78, respirations are 14, blood pressure is 144/71, oxygen saturation is 96% on room air. HEENT: Pupils are round and equally reacting to light. EOMI. No scleral icterus. No conjunctival pallor. Normocephalic, atraumatic. No pharyngeal erythema. No thyromegaly. CARDIOVASCULAR: S1 and S2 present. No murmurs, rubs, or gallops. PULMONARY: Chest is clear to auscultation, no wheezing or crackles. ABDOMEN: Soft, nontender, nondistended, normoactive bowel sounds. No palpable organomegaly. MUSCULOSKELETAL: No joint swelling or deformity. EXTREMITIES: No cyanosis, clubbing, or pedal edema. NEUROLOGICAL: Gross neurological examination did not reveal any focal deficits. SKIN: No rashes. No lesions. No petechiae - Labs CBC & Chem 7: 07/02/19 06:39 07/03/19 05:56 Labs: Abnormal Lab Results - Last 24 Hours (Table) 07/02/19 07/02/19 07/02/19 Range/Units 10:15 16:44 20:39 Glucose (74-99) mg/dL POC Glucose (mg/dL) 115 H 127 H (75-99) mg/dL Ferritin 14.6 L (22.0-322.0) ng/mL 07/03/19 07/03/19 Range/Units 05:56 06:21 Glucose 107 H (74-99) mg/dL POC Glucose (mg/dL) 102 H (75-99) mg/dL Ferritin (22.0-322.0) ng/mL Assessment and Plan Assessment: Acute non-STEMI with significantly elevated troponin, status post emergent cardiac cath, status post stenting of the ostium of the left circumflex artery. Elevated d-dimer, pulmonary embolism ruled out as noted on VQ scan Diabetes mellitus Hypertension Hyperlipidemia History of coronary artery disease status post stent and CABG History of CVA/TIA Sleep apnea on CPAP/BiPAP Migraine Herniated disc with chronic back pain and radiculopathy DVT prophylaxis: Subcu heparin GI prophylaxis: Pepcid Plan: Continue current medications, management, and symptomatic treatment. Discussed with the patient about increasing activity as tolerated. VQ scan was negative for pulmonary embolism. Echo was done showing overall left ventricular systolic function normal with an EF of 55-60%. Cardiology following. Further recommendations to follow. Due to multiple Complex medical issues, prognosis is guarded. Possible discharge in 24-48 hours. Time with Patient: Greater than 30
[2019-07-03 20:34] LABS: Glucose,Whole Blood 120 mg/dL (75-99)
[2019-07-03] MEDS ORDERED: PRAVASTATIN SODIUM 20 MG TAB PO SCH (21:00)
[2019-07-03] MEDS: traZODone HCL 50 MG TAB PO SCH (21:57)
[2019-07-04 06:14] LABS: Glucose,Whole Blood 115 mg/dL (75-99)
[2019-07-04] MEDS: PANTOPRAZOLE 40 MG TABLET PO SCH (06:22)
[2019-07-04] MEDS: LOSARTAN 50 MG TAB PO SCH (08:25)
[2019-07-04] MEDS: DULoxetine HCL 60 MG CAPSULE.DR PO SCH (08:25)
[2019-07-04] MEDS: FAMOTIDINE 20 MG TAB PO SCH (08:25)
[2019-07-04] MEDS: ALLOPURINOL 100 MG TAB PO SCH (08:25)
[2019-07-04] MEDS: CLOPIDOGREL 75 MG TAB PO SCH (08:25)
[2019-07-04] MEDS: HEPARIN SODIUM,PORCINE 5,000 UNIT/ML 1 ML VIAL SQ SCH (08:25)
[2019-07-04] MEDS: ISOSORBIDE MONONITRATE ER 30 MG TAB.ER.24H PO SCH (08:25)
[2019-07-04] MEDS: ASPIRIN 81 MG PO SCH (08:25)
[2019-07-04] MEDS: METOPROLOL SUCCINATE (ER) 50 MG TAB.ER.24H PO SCH (08:26)
[2019-07-04] MEDS: TOPIRAMATE 100 MG TAB PO SCH (08:26)
[2019-07-04 09:05] LABS: Calcium 9.1 mg/dL (8.4-10.2); Potassium 3.9 mmol/L (3.5-5.1)
[2019-07-04 12:04] LABS: Glucose,Whole Blood 146 mg/dL (75-99)
[2019-07-04 13:18] VITALS: BP 149/84; PULSE 86; TEMP 98.7
--- NOTE | 2019-07-04 14:22 | P.DS ---
Providers Date of admission: 07/01/19 23:44 Expected date of discharge: 07/04/19 Attending physician: Chiquis Naranjo Consults: 07/01/19 23:43 Consult Physician Urgent Consulting Provider: Diogenes Arrieta Consult Reason/Comments: acute chest pain Do you want consulting provider notified?: Yes 07/02/19 09:56 Consult Physician Routine Consulting Provider: Diogenes Arrieta Consult Reason/Comments: Post Interventional patient Do you want consulting provider notified?: Already Contacted Primary care physician: Nicolasa Zurita Hospital Course: Final diagnosis Acute non-STEMI with significantly elevated troponin, status post emergent cardiac cath, status post stenting of the ostium of the left circumflex artery. Elevated d-dimer, pulmonary embolism ruled out as noted on VQ scan Diabetes mellitus Hypertension Hyperlipidemia History of coronary artery disease status post stent and CABG History of CVA/TIA Sleep apnea on CPAP/BiPAP Migraine Herniated disc with chronic back pain and radiculopathy DVT prophylaxis GI prophylaxis Discharge disposition Patient is being discharged in a stable condition with guarded prognosis to home and will follow-up with Dr. Zurita upon discharge. Patient will also need to follow-up with cardiology Dr. Kincaid in one week. Total time taken is 35 minutes. History of present illness This is a 63-year-old male who was recently admitted with chest pain, shortness of breath, nausea with left arm and jaw pain with some weakness and was being closely monitored. Patient was seen and evaluated by cardiology and underwent cardiac catheterization with successful stenting of the circumflex artery. Patient is postop day #2. During hospitalization patient's d-dimer was slightly elevated at 0.8 and underwent VQ scan showing low probability for pulmonary embolus. Patient underwent a 2-D echo after catheterization showing overall left ventricular systolic function is normal with an EF between 55 and 60%. Patient was initiated on Pravachol during hospitalization and will continue along with other cardiac medications post stenting as noted below. Patient will also continue in the outpatient setting with cardiac rehab. Patient will follow-up with Dr. Kincaid as discussed and scheduled in one week. Currently No reports of chest pain, shortness of breath, or palpitations. Patient is afebrile. No reports of nausea or vomiting and patient is tolerating diet. Patient states he would like to go home today. Patient will be discharged today. On exam vital signs are stable. Temp is 98.7F, pulse is 86, respirations are 16, blood pressure is 149/84, oxygen saturation is 96% on room air. Cardio S1, S2 are muffled. Respiratory system shows diminished breath sounds at the bases no wheezing or rhonchi noted. Abdomen is soft and nontender. Nervous system shows no focal deficits. Please refer to medication reconciliation sheet for a list of medications. Patient Condition at Discharge: Stable Plan - Discharge Summary Discharge Rx Participant: No New Discharge Prescriptions: New Famotidine [Pepcid] 20 mg PO Q12HR 30 Days #60 tab Pitavastatin Calcium [Livalo] 1 mg PO DAILY #90 tablet Continue Aspirin EC [Ecotrin Low Dose] 81 mg PO DAILY Evolocumab [Repatha Sureclick] 140 mg SQ Q14D Pantoprazole Sodium 40 mg PO DAILY Colchicine [Colcrys] 0.6 mg PO Q12H PRN PRN Reason: Gout Attack metFORMIN HCL ER [Glucophage Xr] 500 mg PO BID Dicyclomine HCl 10 mg PO TID PRN PRN Reason: Gi Upset Topiramate [Topamax] 100 mg PO BID Nitroglycerin Sl Tabs [Nitrostat] 0.4 mg SUBLINGUAL Q5M PRN #20 tab PRN Reason: Chest Pain Tapentadol HCl [Nucynta] 50 mg PO TID SUMAtriptan SUCCINATE [Imitrex] 50 mg PO BID PRN PRN Reason: Migraine Headache Promethazine HCl 12.5 mg PO TID PRN PRN Reason: Nausea Fexofenadine HCl [Vidhya Allergy] 180 mg PO DAILY PRN PRN Reason: Allergy Symptoms Clopidogrel Bisulfate [Plavix] 75 mg PO DAILY Allopurinol [Zyloprim] 100 mg PO DAILY ALPRAZolam [Xanax] 0.5 mg PO BID PRN PRN Reason: Anxiety Isosorbide Mononitrate ER [Imdur] 30 mg PO DAILY Cyclobenzaprine [Flexeril] 10 mg PO TID PRN PRN Reason: Muscle Pain DULoxetine HCL [Cymbalta] 120 mg PO DAILY Losartan [Cozaar] 50 mg PO HS Changed Metoprolol Succinate (ER) [Toprol XL] 50 mg PO DAILY #0 Discharge Medication List Aspirin EC [Ecotrin Low Dose] 81 mg PO DAILY 11/22/17 [History] Colchicine [Colcrys] 0.6 mg PO Q12H PRN 11/22/17 [History] Dicyclomine HCl 10 mg PO TID PRN 11/22/17 [History] Evolocumab [Repatha Sureclick] 140 mg SQ Q14D 11/22/17 [History] Pantoprazole Sodium 40 mg PO DAILY 11/22/17 [History] metFORMIN HCL ER [Glucophage Xr] 500 mg PO BID 11/22/17 [History] Topiramate [Topamax] 100 mg PO BID 11/03/18 [History] Nitroglycerin Sl Tabs [Nitrostat] 0.4 mg SUBLINGUAL Q5M PRN #20 tab 02/17/19 [Rx] ALPRAZolam [Xanax] 0.5 mg PO BID PRN 04/18/19 [History] Allopurinol [Zyloprim] 100 mg PO DAILY 04/18/19 [History] Clopidogrel Bisulfate [Plavix] 75 mg PO DAILY 04/18/19 [History] Fexofenadine HCl [Vidhya Allergy] 180 mg PO DAILY PRN 04/18/19 [History] Promethazine HCl 12.5 mg PO TID PRN 04/18/19 [History] SUMAtriptan SUCCINATE [Imitrex] 50 mg PO BID PRN 04/18/19 [History] Tapentadol HCl [Nucynta] 50 mg PO TID 04/18/19 [History] Isosorbide Mononitrate ER [Imdur] 30 mg PO DAILY 04/20/19 [History] Cyclobenzaprine [Flexeril] 10 mg PO TID PRN 07/02/19 [History] DULoxetine HCL [Cymbalta] 120 mg PO DAILY 07/02/19 [History] Losartan [Cozaar] 50 mg PO HS 07/02/19 [History] Famotidine [Pepcid] 20 mg PO Q12HR 30 Days #60 tab 07/04/19 [Rx] Metoprolol Succinate (ER) [Toprol XL] 50 mg PO DAILY #0 07/04/19 [Rx] Pitavastatin Calcium [Livalo] 1 mg PO DAILY #90 tablet 07/04/19 [Rx] Follow up Appointment(s)/Referral(s): Grant Kincaid MD [STAFF PHYSICIAN] - 07/12/19 2:15 pm [facility],Cardiac [NON-STAFF] - (After discharge, you will follow-up with your deputy of counter intelligence. Once you have obtained a prescription for cardiac rehab, please call [phone] to set up an evaluation.) Nicolasa Zurita DO [Primary Care Provider] - 07/06/19 10:40 am (Contact the office to finish filling out information for video link for ) Ambulatory/Diagnostic Orders: Basic Metabolic Panel [LAB.AMB] Time Frame: 2 Days, Location: None Selected Patient Instructions/Handouts: *Surgery [facility] - After Heart Catheterization - Bicycle Rental Clerk Instructions Activity/Diet/Wound Care/Special Instructions: Activity Limited until follow-up Follow Up with primary care provider upon discharge Follow-up with cardiology as discussed and scheduled Continue current diet Discharge Disposition: HOME SELF-CARE
[2019-07-10] MEDS ORDERED: EVOLOCUMAB 140 MG SQ SCH (09:00)
== END 2019-07-04 14:45 | disposition home or self-care (01) | DRG 247 ==
LOC: EC 22:03 → 3SCARD 23:44
PROVIDERS: ADMIT Hospitalist; ATTEND Hospitalist
PROC: 027034Z Dilation of Coronary Artery, One Artery with Drug-eluting Intraluminal Device, Percutaneous Approach (ICD-10-PCS; principal; 2019-07-02 07:48)
PROC: 4A023N7 Measurement of Cardiac Sampling and Pressure, Left Heart, Percutaneous Approach (ICD-10-PCS; 2019-07-02 07:48)
PROC: B2111ZZ Fluoroscopy of Multiple Coronary Arteries using Low Osmolar Contrast (ICD-10-PCS; 2019-07-02 07:48)
DX: I21.4 Non-ST elevation (NSTEMI) myocardial infarction (principal); I25.810 Atherosclerosis of coronary artery bypass graft(s) without angina pectoris; Z11.59 Encounter for screening for other viral diseases; I25.82 Chronic total occlusion of coronary artery; I25.10 Atherosclerotic heart disease of native coronary artery without angina pectoris; I10 Essential (primary) hypertension; G47.30 Sleep apnea, unspecified; E78.5 Hyperlipidemia, unspecified; E11.9 Type 2 diabetes mellitus without complications; M19.90 Unspecified osteoarthritis, unspecified site; K21.9 Gastro-esophageal reflux disease without esophagitis; R79.89 Other specified abnormal findings of blood chemistry; G89.29 Other chronic pain; M51.16 Intervertebral disc disorders with radiculopathy, lumbar region; R00.1 Bradycardia, unspecified; G43.909 Migraine, unspecified, not intractable, without status migrainosus; M10.9 Gout, unspecified; F41.9 Anxiety disorder, unspecified; F32.9 Major depressive disorder, single episode, unspecified; I25.2 Old myocardial infarction; Z71.3 Dietary counseling and surveillance; Z95.0 Presence of cardiac pacemaker; Z79.82 Long term (current) use of aspirin; Z79.84 Long term (current) use of oral hypoglycemic drugs; Z79.899 Other long term (current) drug therapy; Z79.02 Long term (current) use of antithrombotics/antiplatelets; Z86.73 Personal history of transient ischemic attack (TIA), and cerebral infarction without residual deficits; Z90.49 Acquired absence of other specified parts of digestive tract; Z95.1 Presence of aortocoronary bypass graft; Z98.890 Other specified postprocedural states; Z95.5 Presence of coronary angioplasty implant and graft; Z98.42 Cataract extraction status, left eye; Z98.41 Cataract extraction status, right eye; Z87.828 Personal history of other (healed) physical injury and trauma; Z88.2 Allergy status to sulfonamides; Z88.8 Allergy status to other drugs, medicaments and biological substances; Z83.3 Family history of diabetes mellitus; Z82.49 Family history of ischemic heart disease and other diseases of the circulatory system; Z82.3 Family history of stroke; Z80.3 Family history of malignant neoplasm of breast; Z83.518 Family history of other specified eye disorder
CPT/HCPCS: 36415; 78582; 80048; 80053; 80061; 82728; 83605; 83615; 83735; 83880; 84484; 85025; 85347; 85379; 85610; 85730; 86140; 87635; 93005; 93306; 93459; 93567; 96365; 96366; 96368; 96375; 99285

== ENCOUNTER → 2019-08-18 | Outpatient (CLI) | payer OTHER ==
--- NOTE | 2019-08-18 08:19 | CT ---
EXAMINATION TYPE: CT lumbar spine wo con DATE OF EXAM: 08/18/2019 7:17 AM COMPARISON: None HISTORY: Spinal stenosis lumbar region CT DLP: 1602.3 mGycm Automated exposure control for dose reduction was used. Unenhanced CT of the lumbar spine was performed. Bone and soft tissue window settings are submitted as well as coronal and sagittal reconstructions. There is multilevel hypertrophic and degenerative di sc disease. There is a retrolisthesis of L2 on L3 and L3 on L4 estimated 2 to 3 mm. There is a histor y of previous surgery at the level of L2-3 and L3-L4. L1-L2: There is degenerative disc disease. No disc herniation, canal stenosis, or foraminal encroachm ent. L2-L3: Degenerative disc disease with posterior spondylosis. There is facet arthropathy. Broad-based disc bulging capped by spur results in compression of the thecal sac and probable canal stenosis with bilateral foraminal encroachment. L3-L4: Facet arthropathy with disc bulging capped by spur. Disc osteophyte complex results in anette ning of the thecal sac and canal stenosis. There is facet arthropathy and bilateral foraminal encroac hment. L4-L5: Broad-based disc bulging with effacement of thecal sac. Advanced facet arthropathy. Bilateral mild foraminal encroachment. Suspect canal stenosis. L5-S1: Facet arthropathy. No canal stenosis or foraminal encroachment. IMPRESSION: 1. Multilevel degenerative disc disease with retrolisthesis of L2 on L3 and L3 on L4. Findings result in multilevel foraminal encroachment and canal stenosis as discussed above.
== END | disposition home or self-care (01) ==
LOC: RADCTMAIN 06:52
PROVIDERS: ATTEND Orthopaedic Surgery Orthopaedic Surgery of the Spine
DX: M48.061 Spinal stenosis, lumbar region without neurogenic claudication (principal); M43.16 Spondylolisthesis, lumbar region; M51.36 Other intervertebral disc degeneration, lumbar region; I11.9 Hypertensive heart disease without heart failure; I51.9 Heart disease, unspecified; E11.8 Type 2 diabetes mellitus with unspecified complications; E78.5 Hyperlipidemia, unspecified; E66.3 Overweight; Z48.89 Encounter for other specified surgical aftercare; Z98.1 Arthrodesis status
CPT/HCPCS: 72131

== ENCOUNTER 2023-04-02 11:22 | Inpatient (IN) | payer MEDICARE, OTHER ==
[2023-04-02] MEDS ORDERED: ASPIRIN 81 MG PO STA (11:52)
[2023-04-02] MEDS ORDERED: HEPARIN SODIUM 1,000 UN/ML (10ML VL) IV ONE (11:53)
[2023-04-02] MEDS ORDERED: HEPARIN SODIUM 1,000 UN/ML (10ML VL) IV PRN (11:53)
[2023-04-02] MEDS ORDERED: HEPARIN SOD,PORK IN 0.45% NACL 25,000 UNIT in 0.45% NACL 1 250ML.BAG IV SCH (12:00)
[2023-04-02 12:07] LABS: Basophils # (A) 0.1 k/uL (0-0.2); Basophils % (A) 1 %; Eosinophils # (A) 0.3 k/uL (0-0.7); Eosinophils % (A) 4 %; HCT 51.3 % (39.0-53.0); HGB 16.9 gm/dL (13.0-17.5); Lymphocytes # (A) 2.2 k/uL (1.0-4.8); Lymphocytes % (A) 26 %; MCH 28.9 pg (25.0-35.0); MCHC 32.9 g/dL (31.0-37.0); Mean Platelet Volume 8.1; Monocytes # (A) 0.5 k/uL (0-1.0); Monocytes % (A) 6 %; Neutrophils # (A) 5.3 k/uL (1.3-7.7); Neutrophils % (A) 62 %; Platelet Count 288 k/uL (150-450); RBC 5.83 m/uL (4.30-5.90); RDW 13.2 % (11.5-15.5); WBC 8.5 k/uL (3.8-10.6)
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
[2023-04-02 12:19] LABS: ALT 24 U/L (4-49); AST 25 U/L (17-59); African American GFR (CKD) 62 (>60 ml/min/1.73 sqM); Albumin 4.4 g/dL (3.5-5.0); Alkaline Phosphatase 82 U/L (38-126); Anion Gap 11 mmol/L; Blood Urea Nitrogen 25 mg/dL (9-20); Calcium 9.5 mg/dL (8.4-10.2); Carbon Dioxide 17 mmol/L (22-30); Chloride 112 mmol/L (98-107); Glucose 101 mg/dL (74-99); Magnesium 2.1 mg/dL (1.6-2.3); Non-African American GFR(CKD) 53 (>60 ml/min/1.73 sqM); Potassium 4.2 mmol/L (3.5-5.1); Sodium 140 mmol/L (137-145); Total Bilirubin 0.6 mg/dL (0.2-1.3); Total Protein 7.6 g/dL (6.3-8.2)
[2023-04-02] MEDS ORDERED: ATORVASTATIN 80 MG TAB PO STA (12:27)
[2023-04-02] MEDS ORDERED: ASPIRIN 325 MG TAB PO STA (12:27)
[2023-04-02] MEDS ORDERED: NITROGLYCERIN SL TABS 0.4 MG TAB SUBLINGUAL PRN ×2 (12:27→13:12)
[2023-04-02] MEDS ORDERED: ALPRAZolam 0.25 MG TAB PO PRN (12:27)
--- NOTE | 2023-04-02 12:45 | XR ---
EXAMINATION TYPE: XR chest 2V DATE OF EXAM: 04/02/2023 12:33 PM CLINICAL INDICATION:Male, 67 years old with history of Chest Pain; COMPARISON: Chest radiographs from 04/25/2019 TECHNIQUE: XR chest 2V Frontal and lateral views of the chest. FINDINGS: Lungs/Pleura: There is no evidence of pleural effusion, focal consolidation, or pneumothorax. Pulmonary vascularity: Unremarkable. Heart/mediastinum: Cardiomediastinal silhouette is unremarkable. Three lead cardiac conduction device overlying the left hemithorax with lead tips projecting over the right ventricle, right atrium and c oronary sinus. Musculoskeletal: No acute osseous pathology. Left shoulder arthroplasty appears intact. Other findings: None IMPRESSION: No acute cardiopulmonary disease/process.
[2023-04-02 12:48] LABS: INR 0.9 (<1.2); Partial Thromboplastin Time 32.2 sec (22.0-30.0); Prothrombin Time 10.4 sec (10.0-12.5)
[2023-04-02] MEDS: SODIUM CHLORIDE 0.9% 1,000 ML in EMPTY BAG 1 BAG IV SCH (12:52)
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
[2023-04-02] MEDS ORDERED: LIDOCAINE 1% INJ 10MG/ML (20 ML MDV) ONE (14:01)
[2023-04-02] MEDS ORDERED: VERAPAMIL 2.5 MG/ML 2 ML AMP ONE (14:01)
[2023-04-02] MEDS ORDERED: IV FLUID CONTINUATION 1,000 ML IV ONE (14:10)
[2023-04-02] MEDS ORDERED: fentaNYL (PF) 50 MCG/ML 2 ML AMP ONE (14:16)
[2023-04-02] MEDS ORDERED: fentaNYL (PF) 50 MCG/ML 2 ML AMP IVP ONE (14:21)
[2023-04-02] MEDS ORDERED: LIDOCAINE 1% INJ 10MG/ML (20 ML MDV) SQ ONE (14:24)
[2023-04-02] MEDS ORDERED: IOPAMIDOL-370 100ML BTL INJ ONE ×2 (14:46→15:00)
[2023-04-02] MEDS ORDERED: RX INFO: IV CONTRAST WAS GIVEN 1 EACH MISC MISCELLANE PRN (15:16)
--- NOTE | 2023-04-02 15:24 | P.CARDCATH ---
Date of Procedure: 04/02/23 Description of Procedure: Cardiac Catheterization: The patient is a 67-year-old male with a known history of CAD, status post CABG and PCI, followed by Dr. Kincaid, who saw him today with persistent chest discomfort and was referred to the emergency room. In the emergency room patient continued to have chest discomfort. Recommendations were made regarding cardiac catheterization, the risks and the complications were discussed with the patient who is in full understanding and agreement. Procedure Description: Patient was brought to quality lab technician in fasting semi-sedated state after receiving Fentanyl and Benadryl achieiving moderate conscious sedated state. Using Xylocaine Anesthesia and modified Seldinger technique, using a micropuncture technique, a 6-Beninese sheath was introduced in the right femoral artery . Subsequently, selective coronary angiography was performed using a 6-Beninese 4 bend Kuldeep catheter. Multiple views of the coronary artery including hemiaxial views were obtained. The right Kuldeep catheter was used to cannulate the ALBARRAN to LAD and SVG to the OM. Images of the graft were obtained. The 6 Beninese pigtail catheter was used to cross the aortic valve and LVEDP was calculated. Following that, catheter and sheath were removed. Hemostasis was obtained with deployment of an Angio-Seal. There was no immediate complication. Patient was returned to room in stable condition. Findings: Left main: This is a large size vessel, bifurcating into left circumflex and LAD, the stented segment of the left main is patent with no evidence of in-stent restenosis. LAD: This vessel has diffuse disease proximally with a area of stenosis in the midsegment up to 80% with competitive flow from the ALBARRAN Left circumflex: This is a large dominant vessel giving rise to a PDA and a PLV distally. The second obtuse marginal branch has competitive flow from the graft. The stented segment of the left circumflex is patent with no evidence of significant in-stent restenosis. The first OM stent is patent with no in-stent restenosis. RCA: This is a small nondominant vessel that has intimal disease with with area proximally of 60% with no significant progression ALBARRAN to the LAD the distal anastomotic site is patent the flow into the LAD is brisk there is no evidence of obstructive disease SVG to the OM: The proximal and distal anastomotic site are patent. There is 30% plaque in the proximal segment. There is retrograde filling through the OM proximally and distally Left Ventriculogram: Not performed Hemodynamics: There was no gradient across aortic valve, LVEDP was 8-10 mmHg Conclusion: 1. Patent stent of the left main and the left circumflex 2. Significant disease in the mid LAD 3. Moderate disease in the small nondominant right 4. Patent ALBARRAN to the LAD 5. Patent SVG to the OM Recommendations: I see no evidence of significant progression of disease, I have recommended to continue medical therapy with the present regimen, his chest discomfort may be noncardiac in etiology. The findings and the recommendations were discussed with the patient and the family and they were in full understanding and agreement. Duration of sedation is 40 minutes.
[2023-04-02] MEDS ORDERED: ACETAMINOPHEN TAB 325 MG TAB PO PRN (15:27)
[2023-04-02] MEDS ORDERED: SODIUM CHLORIDE 0.9% 1,000 ML IV SCH (15:30)
[2023-04-02] MEDS: ALPRAZolam 0.5 MG TAB PO PRN ×2 (15:34→21:24)
[2023-04-02 16:26] LABS: African American GFR (CKD) 72 (>60 ml/min/1.73 sqM); Anion Gap 8 mmol/L; Blood Urea Nitrogen 23 mg/dL (9-20); Calcium 8.5 mg/dL (8.4-10.2); Carbon Dioxide 17 mmol/L (22-30); Chloride 114 mmol/L (98-107); Glucose 90 mg/dL (74-99); Non-African American GFR(CKD) 62 (>60 ml/min/1.73 sqM); Potassium 4.4 mmol/L (3.5-5.1); Sodium 139 mmol/L (137-145)
[2023-04-02 16:55] LABS: Glucose,Whole Blood 98 mg/dL (70-110)
--- NOTE | 2023-04-02 18:54 | CA ---
Transthoracic Echo Report Name: Domingo Silva Age: 67 Gender: M : 1955 Exam Date: 04/02/2023 13:39 Exam Location: [facility] Ht (in): 72 Wt (lb): 209 Ordering Physician: Imelda Gastelum Attending/Referring Phys: [id number], Oriana Payroll Accounting Specialist Ayleen Del Valle RDCS Procedure CPT: Indications: LV function Cardiac Hx: Technical Quality: Fair Contrast 1: Total Dose (mL): Contrast 2: Total Dose (mL): MEASUREMENTS (Male / Female) Normal Values 2D ECHO LV Diastolic Diameter PLAX 3.8 cm 4.2 - 5.9 / 3.9 - 5.3 cm LV Systolic Diameter PLAX 2.1 cm IVS Diastolic Thickness 1.3 cm 0.6 - 1.0 / 0.6 - 0.9 cm LVPW Diastolic Thickness 1.2 cm 0.6 - 1.0 / 0.6 - 0.9 cm LV Relative Wall Thickness 0.7 FINDINGS Left Ventricle Limited echocardiogram. Technically difficult study. The ejection fraction is at 50% Right Ventricle Right Atrium Left Atrium Mitral Valve Aortic Valve Tricuspid Valve Pulmonic Valve Pericardium No pericardial effusion. Aorta CONCLUSIONS Limited echocardiogram. Technically difficult study. The ejection fraction is at 50% Previewed by: Dr. Primitivo Zabala MD (Electronically Signed) Final Date: 02 April 2023 18:53
[2023-04-02 20:18] LABS: Glucose,Whole Blood 99 mg/dL (70-110)
[2023-04-02] MEDS ORDERED: LOSARTAN 50 MG TAB PO SCH (21:00)
[2023-04-02] MEDS: ISOSORBIDE MONONITRATE ER 30 MG TAB.ER.24H PO SCH (21:22)
[2023-04-02] MEDS: RANOLAZINE 500 MG TAB.ER.12H PO SCH (21:22)
[2023-04-02] MEDS: METOPROLOL TARTRATE 50 MG TAB PO SCH (21:22)
[2023-04-03] MEDS ORDERED: ONDANSETRON 4 MG/2 ML VIAL IVP STA (01:59)
[2023-04-03 05:00] VITALS: RESP 16
[2023-04-03 06:38] LABS: Glucose,Whole Blood 90 mg/dL (70-110)
[2023-04-03] MEDS ORDERED: HEPARIN SODIUM,PORCINE (1 ML) 2,500 UNIT in SODIUM CHLORIDE 0.9% 250 ML IRRIGATION PRN (07:00)
[2023-04-03] MEDS ORDERED: HEPARIN SODIUM,PORCINE 10,000 UNIT in SODIUM CHLORIDE 0.9% 1,000 ML IRRIGATION PRN (07:00)
[2023-04-03 08:47] LABS: Basophils # (A) 0.1 k/uL (0-0.2); Basophils % (A) 1 %; Eosinophils # (A) 0.2 k/uL (0-0.7); Eosinophils % (A) 3 %; HCT 45.3 % (39.0-53.0); HGB 15.3 gm/dL (13.0-17.5); Lymphocytes # (A) 2.6 k/uL (1.0-4.8); Lymphocytes % (A) 35 %; MCH 30.3 pg (25.0-35.0); MCHC 33.7 g/dL (31.0-37.0); MCV 89.7 fL (80.0-100.0); Mean Platelet Volume 7.7; Monocytes # (A) 0.4 k/uL (0-1.0); Monocytes % (A) 5 %; Neutrophils % (A) 55 %; Platelet Count 219 k/uL (150-450); RBC 5.05 m/uL (4.30-5.90); WBC 7.4 k/uL (3.8-10.6)
[2023-04-03] MEDS ORDERED: ASPIRIN 81 MG PO SCH (09:00)
[2023-04-03] MEDS ORDERED: RANOLAZINE 500 MG TAB.ER.12H PO SCH (09:00)
[2023-04-03] MEDS ORDERED: ASPIRIN 325 MG TAB PO SCH (09:00)
[2023-04-03 09:07] LABS: Prothrombin Time 10.5 sec (10.0-12.5)
[2023-04-03] MEDS: ISOSORBIDE MONONITRATE ER 30 MG TAB.ER.24H PO SCH (09:53)
[2023-04-03] MEDS: METOPROLOL TARTRATE 50 MG TAB PO SCH (09:53)
[2023-04-03] MEDS: SODIUM CHLORIDE 0.9% 1,000 ML in EMPTY BAG 1 BAG IV SCH ×2 (09:54→09:55)
[2023-04-03] MEDS: RANOLAZINE 500 MG TAB.ER.12H PO SCH (09:57)
[2023-04-03] MEDS ORDERED: DICYCLOMINE 10 MG CAP PO PRN (11:09)
[2023-04-03] MEDS ORDERED: PROMETHAZINE 25 MG TAB PO PRN (11:09)
[2023-04-03] MEDS ORDERED: SUMAtriptan succinate 50 MG TAB PO PRN (11:09)
[2023-04-03 11:10] VITALS: BP 96/55; PULSE 56; TEMP 98.2
[2023-04-03 11:35] LABS: Glucose,Whole Blood 88 mg/dL (70-110)
--- NOTE | 2023-04-03 11:44 | P.PN ---
Subjective HISTORY OF PRESENT ILLNESS: This is a 67-year-old male with a past medical history significant for coronary artery disease with previous CABG and subsequent stenting, CVA, hypertension, hyperlipidemia, BiV pacemaker implantation, and intolerance to statin therapy. Patient follows in the office with Dr. Kincaid. We have been asked to see the juaquin harris in consultation for unstable angina. Patient examined at the bedside in the emergency room. The patient was recently hospitalized in [place] for a non- STEMI. He reports that his troponin peaked at 65. He states he did not undergo cardiac catheterization however. The patient was on his way to his follow-up appointment today with Dr. Kincaid when he began to have chest pain. He states that he took a nitro and route to the cardiology office. He states that he continued to have chest pain once he arrived to the powertrain engineer office and took a second nitro. He was evaluated by Dr. Kincaid who then recommended that he come to the emergency room for further evaluation. The patient continues to report chest pain at the time of examination rating it 7/10. He also reports nausea. He states the pain that he is feeling is similar to his previous heart attacks. DIAGNOSTICS: - EKG reveals AV paced rhythm - Chest xray negative for acute process - Laboratory data: WBC 8.5. Hemoglobin 16.9. Platelet count 288. Sodium 140. Potassium 4.2. BUN 25. Creatinine 1.3. Troponin negative x 1 - Current home cardiac medication list has not been updated at the time of dictation - Patient had an echocardiogram performed at his recent hospitalization in [place] with an EF of 55 to 60%, mild AR, mild TR - Cardiac catheterization history: June 2019 with successful stenting of the ostium of the left circumflex. Patient was also found to have subtotally occluded LAD with patent ALBARRAN to LAD. Critical stenosis in the ostium of the left circumflex that appears to be ruptured plaque. Chronically occluded RCA. Patent SVG to obtuse marginal branch. Normal appearance of ascending aorta April 03, 2023 Patient is status postcardiac catheterization revealing patent stent of the left main and left circumflex. Significant disease in the mid LAD. Moderate disease in the small nondominant right. Patent ALBARRAN to LAD. Patent SVG to OM. There was no evidence of significant progression of disease and medical management was recommended. Patient examined this morning at the bedside. Patient currently denies chest pain or pressure. He denies shortness of breath. He does report having a few mild episodes of chest pain overnight that he rated a 3/10. Vital signs are stable this morning. Limited echo performed revealing ejection fraction 50%. Femoral cath site soft with no hematoma noted. PHYSICAL EXAM: VITAL SIGNS: Reviewed. GENERAL: Well-developed in no acute distress. HEENT: Head is normocephalic. Pupils are equal, round. Sclerae anicteric. Mucous membranes of the mouth are moist. Neck supple. No JVD or thyromegaly LUNGS: Respirations even and unlabored. Lungs essentially clear to auscultation bilaterally. HEART: Regular rate and rhythm. S1 and S2 heard. ABDOMEN: Soft. Nondistended. Nontender. EXTREMITIES: Normal range of motion. No clubbing or cyanosis. Peripheral pulses intact. No lower extremity edema NEUROLOGIC: Awake and alert. Oriented x 3. ASSESSMENT: Unstable angina Recent hospitalization at outside facility for non-STEMI, with no heart will terization performed Coronary artery disease with previous CABG, 2016, and subsequent stenting in Hypertension Hyperlipidemia History of BiV pacemaker implantation History of CVA History of nonsustained ventricular tachycardia History of statin intolerance PLAN: Continue current cardiac medications Increase Ranexa to 1000 mg twice a day Continue additional cardiac medications Patient may be discharged home today from a cardiac standpoint and follow-up on an outpatient basis. Nurse practitioner note has been reviewed by physician. Signing provider agrees with the documented findings, assessment, and plan of care documented by IMMUNOPATHOLOGIST as a scribe. Objective - Vital Signs Vital signs: Vital Signs Temp 98.2 F 04/03/23 08:30 Pulse 56 L 04/03/23 08:30 Resp 16 04/03/23 08:30 BP 96/55 04/03/23 08:30 Pulse Ox 95 04/03/23 08:30 FiO2 Intake & Output 04/02/23 04/03/23 04/03/23 18:59 06:59 18:59 Intake Total 431.779 118 Balance 431.779 118 Weight 94.801 kg Intake: IV 300 Intake, IV Titration 11.779 Amount Heparin Sod,Pork in 0.45% 11.779 NaCl 25,000 unit In 0.45 % NaCl 1 250ml.bag @ 10.5 UNITS/KG/HR 9.954 mls/hr IV .Q24H COTY Rx#: [id number] Oral 120 118 Other: Voiding Method Urinal # Voids 1 2 # Bowel Movements 0 - Labs CBC & Chem 7: 04/03/23 07:27 04/02/23 15:29 Labs: Abnormal Lab Results - Last 24 Hours (Table) 04/02/23 04/02/23 04/02/23 Range/Units 11:50 11:50 15:29 APTT 32.2 H (22.0-30.0) sec Chloride 112 H 114 H (98-107) mmol/L Carbon Dioxide 17 L 17 L (22-30) mmol/L BUN 25 H 23 H (9-20) mg/dL Creatinine 1.38 H (0.66-1.25) mg/dL Glucose 101 H (74-99) mg/dL
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
[2023-04-03 13:23] LABS: Chol/HDL Ratio 5.28 Ratio; LDL Cholesterol,Calculated 87.3 mg/dL (0.0-131.0)
[2023-04-03] MEDS ORDERED: PANTOPRAZOLE 40 MG TABLET PO SCH (17:30)
[2023-04-03] MEDS ORDERED: SYMBICORT 160-4.5 MCG INHALER INHALATION SCH (20:00)
[2023-04-03] MEDS ORDERED: TOPIRAMATE 100 MG TAB PO SCH (21:00)
[2023-04-03] MEDS ORDERED: HEPARIN SODIUM,PORCINE 5,000 UNIT/ML 1 ML VIAL SQ SCH (21:00)
[2023-04-03] MEDS ORDERED: GABAPENTIN 300 MG CAP PO SCH (21:00)
[2023-04-04] MEDS ORDERED: LORATADINE 10 MG TAB PO SCH (09:00)
[2023-04-04] MEDS ORDERED: allopurinoL 100 MG TAB PO SCH (09:00)
[2023-04-04] MEDS ORDERED: MONTELUKAST 10 MG TAB PO SCH (09:00)
--- NOTE | 2023-04-05 21:23 | CDI ---
Documentation Clarification Form Date: 04/05/2023 09:11:19 PM From: Bhavna Ashraf Phone: Admit Date: 04/02/2023 01:14:00 PM Patient Name: Domingo Silva Visit Number: [id number] Discharge Date: 04/03/2023 01:32:00 PM ATTENTION: The Clinical Documentation Specialists (CDI) and [facility] Coding Staff appreciate your assistance in clarifying documentation. Please respond to the clarification below the line at the bottom and electronically sign. The CDI & [facility] Coding staff will review the response and follow-up if needed. Please note: Queries are made part of the Legal Health Record. If you have any questions, please contact the author of this message via ITS. Dr. Tanner Michelle Sheet The patient was recently hospitalized in [place] for anon-STEMI is documented per Consult 04/02 which may lack sufficient clinical evidence/support in the medical record. Additional clarification is requested. History/Risk Factors: 67yo F, CAD w unstable angina sp CABG & stents, recent NSTEMI, HTN, HLD, OOM, Hx CVA x4, Hx AK x6, Hx VT, Hx statinintolerance Clinical Indicators: Troponin I <0.012 04/02 He reports that his troponin peaked at 67 04/02 Consult Troponin negative x 1 04/03 Treatment: Heart Cath- Patentstentof the left main and the left circumflex. Significant dz in the mid LAD. Moderate dz in the small nondominant right. Patent ALBARRAN to the LAD. Patent SVG to the OM Please clarify if recent NSTEMI is a valid diagnosis? [ ] Yes, recent NSTEMI (28 days or less) is present as evidence by (additional clinical support): [ ] No, recent NSTEMI (greater than 28 days) is ruled out [ ] Other (please specify diagnosis) [ x] Unable to determine (Template Last Revised: May 2020) MTDD
[2023-04-15] MEDS ORDERED: NON FORMULARY DRUG (Evolocumab [Repatha Sureclick] 140 MG/ML Pen.Injctr) SQ SCH (09:00)
== END 2023-04-03 13:32 | disposition home or self-care (01) | DRG 281 ==
LOC: EC 11:22 → 3SCARD 13:14
PROVIDERS: ADMIT Hospitalist; ATTEND Hospitalist
PROC: B2111ZZ Fluoroscopy of Multiple Coronary Arteries using Low Osmolar Contrast (ICD-10-PCS; 2023-04-02)
PROC: B2131ZZ Fluoroscopy of Multiple Coronary Artery Bypass Grafts using Low Osmolar Contrast (ICD-10-PCS; 2023-04-02)
PROC: 4A023N7 Measurement of Cardiac Sampling and Pressure, Left Heart, Percutaneous Approach (ICD-10-PCS; principal; 2023-04-02 19:25)
DX: I25.110 Atherosclerotic heart disease of native coronary artery with unstable angina pectoris (principal); I21.4 Non-ST elevation (NSTEMI) myocardial infarction; I25.700 Atherosclerosis of coronary artery bypass graft(s), unspecified, with unstable angina pectoris; I47.20 Ventricular tachycardia, unspecified; N18.30 Chronic kidney disease, stage 3 unspecified; E11.22 Type 2 diabetes mellitus with diabetic chronic kidney disease; I08.2 Rheumatic disorders of both aortic and tricuspid valves; I25.82 Chronic total occlusion of coronary artery; I12.9 Hypertensive chronic kidney disease with stage 1 through stage 4 chronic kidney disease, or unspecified chronic kidney disease; I69.311 Memory deficit following cerebral infarction; M10.9 Gout, unspecified; G47.30 Sleep apnea, unspecified; E78.5 Hyperlipidemia, unspecified; Z95.1 Presence of aortocoronary bypass graft; Z95.0 Presence of cardiac pacemaker; Z79.02 Long term (current) use of antithrombotics/antiplatelets; Z79.84 Long term (current) use of oral hypoglycemic drugs; Z79.82 Long term (current) use of aspirin; Z95.5 Presence of coronary angioplasty implant and graft; Z82.49 Family history of ischemic heart disease and other diseases of the circulatory system; Z79.899 Other long term (current) drug therapy; Z79.891 Long term (current) use of opiate analgesic; Z79.85 Long-term (current) use of injectable non-insulin antidiabetic drugs; Z88.8 Allergy status to other drugs, medicaments and biological substances; Z88.2 Allergy status to sulfonamides
CPT/HCPCS: 36415; 71046; 80048; 80053; 80061; 83735; 84484; 85025; 85610; 85730; 93005; 93308; 93459; 96365; 99285